=== PATIENT | female | born 2000 | race Caucasian/White ===

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

== ENCOUNTER 2025-01-24 10:54 | Emergency (ER) | payer SELFPAY ==
--- OUTSIDE RECORDS SUMMARY | 2025-01-24 11:13 | XMS REPORT | Continuity of Care Document ---
Author Name Unknown Address [address] [facility] [address] [place] [address] [facility] [place] Address [address] [facility] [address] [place] [address] Care Team Providers Care Senior Lead Java Developer Name Role Phone Pcp MD, No Primary Care Physician Unavailab chung Seals MD, Lashonda Attending Clinician + [phone] Pgy2-B Attending Clinician Unavailable Yoselyn Keating MD Attending Clinician [phone] Tika Preston Attending Clinician [phone] Pgy2 Attending Clinician Unavailable COLE DAVIS Attending Clinician Unavailable Pgy1 Attending Clinician Unavailable Bernarda Costa Attending Clinician [phone] EUGENE LOGAN Attending Clinician Unavail able MONA MATIAS Attending Clinician Unavailable Akintonny MARTINEZ, Eugene Soliz Attending Clinician + NIRMALA REAGAN Attending Clinician Unavailable NIRMALA REAGAN Attending Clinician Unavailable ERINN REID Attending Clinician Unavaila Erinn Foster CNM Attending Clinician [phone] Mona Blandon Attending Clinician +[phone] Asia Hale RN Attending Clinician Unavaila ALEX Sage Attending Clinician Unavailable CASSIE RAMOS Attending Clinician UnavailRACHEL Gutierrez Attending Clinician Unavailable Rachel Herbert MD Attending Clinician +[phone] NED LEWIS Attending Clinician UnavailAZALIA Gamble Attending Clinician Unavailable AZALIA SUAREZ Attending Clinician Unavailable 2, [facility] Attending Clinician Unavailable NAOMIE COOLEY Attending Clinician Unavailable NAOMIE COOLEY Attending Clinician Unavailable TAHIR PAYNE Attending Clinician Unavailable NYLA CHARLES Attending Clinician Unav ailMARICARMEN Rodrigez Attending Clinician Unavailable MARICARMEN SWEET Attending Clinician Unavailable Doctor Unassigned, [place] Attending Clinician U navailRAYNE Cedillo Attending Clinician Unavailable Wong Murry Attending Clinician Unavailable Ned Lewis MD Attending Clinician [phone] Beto FOREST ECOLOGIST- Alessio BRISCOE Attending Clinician ALESSIO MOSCOSO Attending Clinician Unavailable ELOY HOUSE Attending Clinician Unavaila ELOY Varela Attending Clinician Unavaila ble [facility] Attending Clinician Alayna vailable Akinsipe [facility], Eugene Soliz Attending Clinician + Greg Rodriguez CRNA Attending Clinician [phone] Caden Claudio MD Attending Clinician [phone] ANSELMO ESTES Attending Clinician Unavailable Franklyn CASTLE, Anselmo Alvarado Attending Clinician [phone] Ultrasound, Ang-m Attending Clinician Unavailivon Tong MD, Jim Franco Attending Clinician + JIM TONG Attending Clinician Unav ailable 1, [facility] Attending Clinician Unavailab PRESLEY Foy Attending Clinician Unavailab CARMEN Morales Attending Clinician UnavailCarmen Weldon Attending Clinician + [phone] Willian CONDON Attending Clinician Unavailable Willian Puga Attending Clinician [phone] Balaji Webb MD Attending Clinician + [phone] Pob, [facility] Main Attending Clinician Unavailkina Mon MD, Maynor Arellano Attending Clinician [phone] Beto Garcia Attending Clinician [phone] Paul Hassan Attending Clinician [phone] Annika Rachel MD Attending Clinician [phone] Emmie Tovar MD, Ivory Attending Clinician + Chandler DO, Will Attending Clinician +[phone] CHANDLER, WILL Attending Clinician Unavailable Emmanuel Mon DO Attending Clinician [phone] Faculty, Narendra Sevilla Attending Clinician Unava ilable Visit, [place] Nurse Attending Clinician Unava ilable Michael FOREST ECOLOGISTPresley Attending Clinician + [phone] [facility], Fp Nrpt Pills Class Attendi ng Clinician Unavailable Rocco [facility], Eva Farnsworth Attending Clinician + LUCINA REINOSO Attending Clinician Alayna vailable ANSELMO ESTES Admitting Clinician Unavailable MAYNOR MON Admitting Clinician Unavailable ANNIKA RACHEL Admitting Clinician Unavailable RACHEL HERBERT Admitting Clinician Unavailable CONNOR YIP Admitting Clinician UnavailMARICARMEN Benavides Admitting Clinician Unavailable Physician, No Primary or Family Admitting Clinic robbin Unavailable NIRMALA REAGAN Admitting Clinician Unavailable Nirmala Reagan MD Admitting Clinician Anselmo Estes MD Admitting Clinician [phone] Willian CONDON Admitting Clinician Unavailable Maynor Mon MD Admitting Clinician Annika Rachel MD Admitting Clinician Payers Payer Name Policy Type Policy Number Effective Date Expirati on Date Source [place] [employer] [id number] 2022 00:00:00 [place] [id number] 2020 00:00:00 MEDICAID COMM HEALTH CHOICE [id number] 2001 00:00:00 [place] [id number] 2001 00:00:00 MEDICAID PENDING PENDING 2020 00:00:00 FAMILY PLANNING MAX 101-150% [id number] 2019 00:00:00 Problems Condition Name Condition Details Condition Category Status Onset Date Resolution Date Last Treatment Date Treating Clinician Comments Source BREAST PAIN/DIZZI NESS BREAST PAIN/DIZZI NESS Active 05/19/2023 [facility] Active 2022-06 00:00: 00 2023-05-19 12:13:00 Josephine Headley ACUTE MASTITIS OF RIGHT BREAST, DM2, ACU ACUTE MASTITIS OF RIGHT BREAST, DM2, ACU Active 05/19/2023 [facility] Active 2022-06 00:00: 00 2023-05-23 15:18:00 Josephine Headley POST OP PAIN POST OP PAIN Active 03/24/2023 [facility] Active 2022-06 0 00:00: 00 2023-03-24 08:20:00 Josephine Headley 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 Repeat 1 year [facility] Diabetes mellitus (disorder) Diabetes mellitus (disorder) Active Problem 05/25/2023 [facility] Problem Active 2023-05-25 01:45:09 Josephine farnsworth [place] MASTITIS WITHOUT ABSCESS MASTITIS WITHOUT ABSCESS Active [facility] Diagnosis Active 2023-05-23 15:18:00 Josephine farnsworth Kayode TYPE 2 DIABETES MELLITUS WITHOUT COMPLIC TYPE 2 DIABETES MELLITUS WITHOUT COMPLIC Active [facility] Diagnosis Active 2023-05-23 15:18:00 Jonathanalize daja Kayode SEPSIS, UNSPECIFIE D ORGANISM SEPSIS, UNSPECIFIE D ORGANISM Active [facility] Diagnosis Active 2023-05-23 15:18:00 Jonathanalize Coughlinann Symptomati c cholelithi asis Symptomati c cholelithi asis Disease Resolve d 9-11 00:00: 00 2024-11-19 00:00:00 2024-11-19 16:05:07 [facility] Nexplanon in place Nexplanon in place Disease Resolve d 8-07 00:00: 00 2024-04-18 00:00:00 2024-04-18 13:03:26 Overview: Formattin g of this note might be different from the original. Inserted [facility] Obesity (BMI 30-39.9) Obesity (BMI 30-39.9) Disease Resolve d 6-30 00:00: 00 2024-04-18 00:00:00 2024-04-18 13:03:30 [facility] Anemia, Anemia, Disease Resolve d 2022-0 2-02 00:00: 00 2022-07-22 00:00:00 2022-07-22 15:40:07 [facility] Encounter for elective induction of labor Encounter for elective induction of labor Disease Resolve d 2021-1 2-22 00:00: 00 2022-07-22 00:00:00 2022-07-22 14:08:16 [facility] History of gonorrhea History of gonorrhea Disease Resolve d 2020-0 5-05 00:00: 00 2022-07-22 00:00:00 2022-07-22 14:08:20 [facility] Family history of autism in sibling Family history of autism in sibling Disease Resolve d 2020-0 3-10 00:00: 00 2022-07-22 00:00:00 2022-07-22 14:08:18 Overview: Formattin g of this note might be different from the original. Reports brother [facility] History of chlamydia infection History of chlamydia infection Disease Resolve d 2019-06 2-18 00:00: 00 2022-07-22 00:00:00 2022-07-22 14:08:20 [facility] Liveborn infant, of cornejo , born in hospital by vaginal delivery Liveborn , of cornejo , born in hospital by vaginal delivery Disease Resolve d 2021-1 2-23 00:00: 00 2022-06-30 00:00:00 2022-06-30 11:31:55 [facility] 39 weeks gestation of 39 weeks gestation of Disease Resolve d 2021-1 2-22 00:00: 00 2022-06-30 00:00:00 2022-06-30 11:31:55 [facility] Supervisio n of high risk in second trimester Supervisio n of high risk in second trimester Disease Resolve d 2021-0 6-28 00:00: 00 2022-06-30 00:00:00 2022-06-30 11:31:55 [facility] Obesity affecting in third trimester Obesity affecting in third trimester Disease Resolve d 2022-0 6-28 00:00: 00 2022-06-30 00:00:00 2022-06-30 11:31:55 [facility] Lab test positive for detection of COVID-19 virus Lab test positive for detection of COVID-19 virus Disease Resolve d 2020-06 0-25 00:00: 00 2021-05-26 00:00:00 2021-05-26 12:52:16 [facility] Normal labor and delivery Normal labor and delivery Disease Resolve d 2020-06 0-24 00:00: 00 2021-05-26 00:00:00 2021-05-26 13:31:44 [facility] 38 weeks gestation of 38 weeks gestation of Disease Resolve d 5-05 00:00: 00 2021-05-26 00:00:00 2021-05-26 12:52:16 [facility] Vaginal bleeding during Vaginal bleeding during Disease Resolve d 03-19 00:00: 00 2021-04-13 00:00:00 2021-04-13 01:56:21 [facility] Morbid obesity with body mass index of 40.0-49.9 Morbid obesity with body mass index of 40.0-49.9 Disease Resolve d 2018-06 007 00:00: 00 2021-04-13 00:00:00 2021-04-13 02:28:24 [facility] Elevated blood pressure reading without diagnosis of hypertensi on Elevated blood pressure reading without diagnosis of hypertensi on Disease Resolve d 2019-06 2-17 00:00: 00 2020-12-17 00:00:00 2020-12-17 14:44:13 [facility] Gonorrhea Gonorrhea Disease Resolve d 2019-06 2-18 00:00: 00 2020-10-22 00:00:00 2020-10-22 18:17:38 [facility] Irregular menstrual cycle Irregular menstrual cycle Disease Resolve d 8-18 00:00: 00 2020-08-27 00:00:00 2020-08-27 15:15:37 [facility] Encounter for contracept lissette management , unspecifie d type Encounter for contracept lissette management , unspecifie d type Disease Resolve d 9-04 00:00: 00 2020-08-27 00:00:00 2020-08-27 15:15:54 [facility] Nexplanon removal Nexplanon removal Disease Resolve d 9-04 00:00: 00 2019-03-26 00:00:00 2019-03-26 17:07:23 [facility] History of Past Illness Condition Name Condition Details Condition Category Status Onset Date Resolution Date Last Treatment Date Treating Clinician Comments Source Cholelithi asis without obstructio n (disorder) Cholelithi asis without obstructio n (disorder) 02/13/2023 Diagnosis 02/15/2023 [facility] Diagnosis 02-13 01:30: 00 2023-02-15 03:51:04 2023-02-15 03:51:04 Josephine Headley Nausea and vomiting (disorder) Nausea and vomiting (disorder) 02/13/2023 Diagnosis 02/15/2023 [facility] Diagnosis 2022-02-13 01:30: 00 2023-02-15 03:51:04 2023-02-15 03:51:04 Josephine Headley Allergies, Adverse Reactions, Alerts Allergy Name Allergy Type Status Severity Reaction(s) Onset Date Inactive Date Treating Clinician Comments Source No Known Allergie s DA Active U 8 00:00: 00 [facility] IODINE DRUG INGREDI Active Anaphylaxis 08-18 00:00: 00 [facility] Iodine Propensi ty to adverse reaction s Active Swelling 08-18 00:00: 00 [facility] Grass Pollen-J une Grass Standard Propensi ty to adverse reaction s Active Hives 12-27 00:00: 00 [facility] GRASS POLLEN-J UNE GRASS STANDARD Allergy Active Hives 12-27 00:00: 00 [facility] GRASS POLLEN-J UNE GRASS STANDARD Drug Class Active Hives 12-27 00:00: 00 [facility] Social History Social Habit Start Date Stop Date Quantity Comments Source History of tobacco use Passive smoker [facility] History of Occupation [facility] History SDOH Alcohol Binge [facility] History SDOH Alcohol Std Drinks [facility] Alcoholic beverage intake 2024-11-27 00:00:00 2024-11-27 00:00:00 Current drinker of alcohol (finding) [facility] History of Social function 2024-11-19 00:00:00 2024-11-19 00:00:00 [facility] Alcohol Comment 2023-08-09 00:00:00 2023-08-09 00:00:00 ocassional [facility] Exposure to SARS-CoV-2 (event) 2022-07-12 00:00:00 2022-07-22 14:22:00 Not sure [facility] Tobacco use and exposure 2022-06-10 00:00:00 2022-06-10 00:00:00 Smokeless tobacco non-user [facility] History SDOH Alcohol Frequency 2020-10-17 00:00:00 2020-10-17 00:00:00 1 [facility] Alcohol intake 2020-10-16 00:00:00 2020-10-16 00:00:00 Lifetime non-drinker (finding) [facility] Sex Assigned At 2000 00:00:00 2000 00:00:00 [facility] Smoking Status Start Date Stop Date Source Never smoked tobacco [facility] Medications Ordered Medication Name Filled Medication Name Start Date Stop Date Current Medication? Ordering Clinician Indication Dosage Frequency Signature (SIG) Comments Components Source laurent mayorgaestrad ioL-iron (,) 1.5 mg-30 mcg (21)/75 mg (7) tablet 01-17 00:00: 00 Yes [id number] 1{tbl} Take 1 tablet by mouth in the morning. [facility] medroxyPROG ESTERone 10 mg tablet 6- 00:00: 00 Yes [id number] 10mg Take 1 tablet by mouth in the morning. [facility] medroxyPROG ESTERone 5 mg tablet 6-10 00:00: 00 11-28 00:00 :00 No [id number] 5mg Take 1 tablet by mouth in the morning. [facility] ondansetron 4 mg disintegrat ing tablet 6 00:00: 00 Yes [id number] 4mg Take 1 tablet by mouth every 8 hours as needed for Nausea and Vomiting (N/V). [facility] dicyclomine 20 mg tablet 11-23 00:00: 00 Yes [id number] 20mg Take 1 tablet by mouth 4 times daily as needed for Abdominal pain. [facility] medroxyPROG ESTERone (PROVERA) 10 mg tablet 2-27 00:00: 00 08-27 04:59 :00 No [id number] 10mg Take 1 tablet by mouth in the morning for 10 days. [facility] medroxyPROG ESTERone (DEPO-PROVE RA) syringe 150 mg 07 14:15: 00 11-19 20:58 :07 No [id number] 150mg 150 mg, Intramuscu lar, [id number], 5 doses, First dose on Tue01/25/24 at 0915, Last dose on Tue12/26/24 at 0915, Routine [facility] ibuprofen 600 mg tablet 3-06 00:00: 00 04-18 00:00 :00 No [id number] 600mg Take 1 tablet by mouth every 6 (six) hours as needed for Pain (scale 1-3). [facility] gabapentin 300 mg capsule 3-06 00:00: 00 04-18 00:00 :00 No [id number] 300mg Take 1 capsule by mouth in the morning and 1 capsule at noon and 1 capsule in the evening. [facility] ibuprofen 600 mg tablet 2-20 11:12: 08 08-09 00:00 :00 No 600mg Take 1 tablet by mouth in the morning and 1 tablet in the evening. Take with meals. [facility] Tylenol with Codeine #3 oral tablet 2022-06 21:00: 00 No 1 tab, PO, Q6H, PRN Pain Score 7-10, X 3 day, # 12 tab, 0 Refill(s), Pharmacy: [id number], 165.1, cm, 05/19/23 16:33:00 PIPING SUPERVISOR, Height, 86.364, kg, 05/19/23 16:33:00 PIPING SUPERVISOR, Weight Josephine Headley ibuprofen 800 mg oral tablet 2022-06 20:56: 00 Yes 100.4 F, 0 Refill(s) Josephine Headley Multivitami ns with Folic Acid 0.8 mg oral tablet 2022-06 20:56: 00 Yes 0.8 mg = 1 tab, PO, Daily, 0 Refill(s) Josephine Headley cholecalcif yolis 2022-06 20:56: 00 Yes 5,000 IntlUnit = 1 cap, PO, Daily, 0 Refill(s) Josephine Headley Keflex 500 mg oral capsule 2022-06 20:55: 00 Yes 1,000 mg = 2 cap, PO, TID, X 10 day, # 60 cap, 0 Refill(s), Pharmacy: [id number], 165.1, cm, 05/19/23 16:33:00 PIPING SUPERVISOR, Height, 86.364, kg, 05/19/23 16:33:00 PIPING SUPERVISOR, Weight Josephine Headley fluconazole 200 mg oral tablet 2022-06 20:55: 00 Yes 200 mg = 1 tab, PO, Daily, X 7 day, # 7 tab, 0 Refill(s), Pharmacy: [id number], 165.1, cm, 05/19/23 16:33:00 PIPING SUPERVISOR, Height, 86.364, kg, 05/19/23 16:33:00 PIPING SUPERVISOR, Weight Josephine Headley fluconazole 2022-06 18:00: 00 No Notes: (Same as: Diflucan) Hazardous Drug Group 3:Reproduc tive risk Hazardous Drug -- Refer to safe handling procedure PPE Matrix Josephine Headley cholecalcif yolis 2022-06 16:57: 00 No Notes: (Same as: Vitamin D3) Josephine Headley Multivitami ns with Folic Acid 0.8 mg oral tablet 2022-06 16:57: 00 No 1 tab, Route: PO, Drug Form: TAB, Dosing Weight 86.364, kg, Daily, NOW, Start date: 05/21/23 10:57:00 PIPING SUPERVISOR, Duration: 30 day, Stop date: 06/20/23 9:00:00 PIPING SUPERVISOR, 0 Josephine Headley Ancef + Sodium Chloride 0.9% IV 100 mL 2022-06 23:38: 00 No Notes: (Same As: Ancef, Kefzol) MEDICATION WASTE Product Size: 2000 mg Product Wasted: ___ mg Josephine Headley ibuprofen 2022-06 18:31: 00 No 100.4 F, Start date: 05/20/23 12:31:00 PIPING SUPERVISOR, Duration: 30 day, Stop date: 06/19/23 12:30:00 PIPING SUPERVISOR, 0 Jonathanalize farnsworth Kayode potassium chloride 2022-06 17:07: 00 No /= 14 [place], may dissolve each 20 mEq tablet in 4 oz of water. Allow about 2 minutes for the tablets to disintegra te. Stir before giving to prepare slurry and administer . Please exclude patient's with feeding tube less than 14 [place] (Dobhoff, J-tube, etc) and pediatric and patients. Josephine Headley potassium phosphate-s odium phosphate 250 mg-280 mg-160 mg oral powder for reconstitut ion 2022-06 17:07: 00 No Notes: (Same as: Phos-NaK) Each 1.5 gm pkt has 250mg phosphorou s. Mix w/2.5oz water and stir. Memoria l Kayode potassium phosphate + Sodium Chloride 0.9% IV 250 mL 2022-06 17:07: 00 No Notes: (Same as: K Phosphate. ) Do not infuse phosphorou s concurrent ly in the same line as TPN or IVF that contains calcium. For double lumen central lines, phosphorou s may be infused in a separate lumen from TPN. 1 mMol phoshate has 1.47 mEq potassium Infuse over 4 hours Memalize farnsworth Kayode sodium phosphate + Dextrose 5% in Water IV 250 mL 2022-06 17:07: 00 No Notes: Infuse over 4 hour. Do not infuse phosphorou s concurrent ly in the same line as TPN or IVF that contains calcium. For double lumen central lines, phosphorou s may be infused in a separate lumen from TPN. Josephine Headley magnesium oxide 2022-06 17:07: 00 No Notes: (Same as: Mag-Ox 400) Magnesium oxide 200vn=137t g elemental magnesium Dose=____m g magnesium oxide (___mg elemental magnesium) Josephine Headley calcium gluconate + Sodium Chloride 0.9% IV 100 mL 2022-06 17:07: 00 No Notes: WASTE: F/P - Sink; E - Municipal Trash Bin Josephine Headley vancomycin + Sodium Chloride 0.9% IV 250 mL 2022-06 06:10: 00 No 2001 mg: infuse over 2.5 hours For adult patients only: Round to nearest 250 mg per Medical Staff approval MEDICATION WASTE Product Size: 1000 mg Product Wasted: ___ mg Josephine Headley magnesium sulfate 2 gm in Water 50 ml 2022-06 03:30: 00 No Notes: WASTE: F/P - Sink; E - Municipal Trash Bin Josephine Headley enoxaparin 2022-06 01:32: 00 No Notes: (Same as: Lovenox) Josephine Headley Rocephin + Sodium Chloride 0.9% IV 100 mL 2022-06 23:00: 00 No Notes: (Same As: Rocephin). Use with 100 mL NS and infuse over 30 min MEDICATION WASTE Product Size: 1000 mg Product Wasted: ___ mg Josephine Headley D10W (bolus) IV 2022-06 22:40: 00 No 250 mL, 999 ml/hr, Route: IV, Drug Form: INJ, Dosing Weight 86.364, kg, PRN, PRN Blood Glucose Results, Start date: 05/19/23 16:40:00 PIPING SUPERVISOR, Duration: 30 day, Stop date: 06/18/23 16:39:00 PIPING SUPERVISOR, Infuse over: 0.3 hr, 0 Josephine Headley potassium chloride 20 mEq oral tablet, extended release (KCL) 2022-06 22:36: 00 No /= 14 [place], may dissolve each 20 mEq tablet in 4 oz of water. Allow about 2 minutes for the tablets to disintegra te. Stir before giving to prepare slurry and administer . Please exclude patient's with feeding tube less than 14 [place] (Dobhoff, J-tube, etc) and pediatric and patients. Josephine Headley insulin lispro 2022-06 22:35: 00 No Notes: (Same as: Humalog) Roll in palms of hands gently; Do not shake vigorously . WASTE: F/P - Black; E - Municipal Trash Bin Stable for 28 days at room temperatur e. Expires in days from ____Date Josephine Headley Hamilton 5/325 oral tablet 2022-06 22:35: 00 No Notes: (Same as: Hamilton 325/5) Do not exceed 4gm/day of acetaminop hen. Josephine Headley Vancomycin Pharmacy Dosing Consult 2022-06 22:34: 33 No Notes: Vancomycin Pharmacy Dosing Protocol PHARMAC Y USE ONLY Note: This is not a medication order. This is a consultati on order. Josephine Headley Dextrose 50% Syringe (D50W) 2022-06 22:32: 00 No 25 mL, Route: IVP, Dosing Weight 86.364, kg, PRN, PRN Blood Glucose Results, Start date: 05/19/23 16:32:00 PIPING SUPERVISOR, Duration: 30 day, Stop date: 06/18/23 16:31:00 PIPING SUPERVISOR Josephine Headley glucagon 2022-06 22:32: 00 No 1 mg, Route: IM, Drug form: PDR/INJ, PRN, Dosing Weight 86.364, kg, PRN Blood Glucose Results, Start date: 05/19/23 16:32:00 PIPING SUPERVISOR, Duration: 30 day, Stop date: 06/18/23 16:31:00 PIPING SUPERVISOR, 0 Josephine Headley ondansetron 2022-06 22:32: 00 No Notes: (Same as: Zofran) MEDICATION WASTE Product Size: 4 mg Product Wasted: ___ mg Josephine Headley acetaminoph en 2022-06 22:32: 00 No Notes: Do not exceed 4 gm/day. (Same as: Tylenol) Josephine Headley midodrine 2022-06 18:20: 00 No Notes: (Same as:Proamat ine) Josephine Headley Sodium Chloride 0.9% (Bolus) IV 2022-06 17:49: 00 No 1,000 mL, Infuse Over: 1 hr, Route: IV, ONCE, Priority: STAT, Dosing Weight 86.364 kg, Start date: 05/19/23 11:49:00 PIPING SUPERVISOR, Stop date: 05/19/23 11:49:00 PIPING SUPERVISOR Josephine Headley vancomycin 2022-06 17:48: 00 No 1,000 mg, Route: IVPB, Drug form: INJ, ONCE, Dosing Weight 86.364, kg, Priority: STAT, Start date: 05/19/23 11:48:00 PIPING SUPERVISOR, Stop date: 05/19/23 11:48:00 PIPING SUPERVISOR, ABX Indication : ED - Suspected Sepsis Josephine Headley cefepime 2022-06 17:48: 00 No 1 gm, Route: IVPB, ONCE, Dosing Weight 86.364, kg, Priority: STAT, Start date: 05/19/23 11:48:00 PIPING SUPERVISOR, Stop date: 05/19/23 11:48:00 PIPING SUPERVISOR, ABX Indication : ED - Suspected Sepsis Josephine Headley Sodium Chloride 0.9% (Bolus) IV 2022-06 17:32: 00 No 2,590.92 mL, 2,000 ml/hr, Route: IV, ONCE, Priority: STAT, Dosing Weight 86.364 kg, Start date: 05/19/23 11:32:00 PIPING SUPERVISOR, Stop date: 05/19/23 11:32:00 PIPING SUPERVISOR, Sepsis dose. Josephine Headley ibuprofen 600 mg tablet 2022-06 0-12 08:08: 01 Yes 600mg Take 1 tablet by mouth in the morning and 1 tablet in the evening. Take with meals. [facility] Motrin 800 mg oral tablet 2022-06 0-05 13:52: 00 Yes 800 mg = 1 tab, PO, Q8H, PRN Pain, Take with food, X 10 day, # 30 tab, 0 Refill(s) Josephine Headley FENTanyl PF (SUBLIMAZE (PF)) injection 25 mcg 03-18 17:06: 54 Yes 25ug 25 mcg, Slow IV Push, Q5MIN PRN, 4 doses, Starting on Tue03/18/23 at 1206, Until Discontinu ed, Routine, Pain (scale 4-6), PACU [facility] HYDROmorphO ne (DILAUDID) injection 0.2 mg 03-18 17:06: 54 Yes .2mg 0.2 mg, Slow IV Push, Q5MIN PRN, 10 doses, Starting on Tue03/18/23 at 1206, Until Discontinu ed, Routine, Pain (scale 7-10), PACU
Us e approved by (Faculty): PACU USE -ANESTHESI A SERVICE-HY DROMORPHON E INJECTIONS [facility] ondansetron (ZOFRAN (PF)) injection 4 mg 03-18 17:06: 54 Yes 4mg 4 mg, Slow IV Push, PRN, 1 dose, Starting on Tue03/18/23 at 1206, Until Discontinu ed, Routine, Nausea and Vomiting (N/V), PACU [facility] sodium chloride 0.9 % irrigation solution 03-18 14:59: 00 03-18 16:34 :52 No PRN, Starting on Tue03/18/23 at 0959, Until Tue03/18/23 at 1134, Intra-op [facility] bupivacaine (preserv free) (SENSORCAIN E MPF) 0.25 % (2.5 mg/mL) injection 03-18 14:59: 00 03-18 16:34 :52 No PRN, Starting on Tue03/18/23 at 0959, Until Tue03/18/23 at 1134, Routine, Intra-op [facility] lactated ringers IV infusion 1,000 mL 03-18 13:30: 00 03-18 13:33 :00 No 1000mL at 42 mL/hr, 1,000 mL, IV Infusion, ONCE, 1 dose, On Tue03/18/23 at 0830, Routine, DSU Pre-op [facility] ibuprofen 600 mg tablet 03-18 13:17: 22 Yes 600mg Take 1 tablet by mouth in the morning and 1 tablet in the evening. Take with meals. [facility] acetaminoph en 650 mg CR tablet 03-18 00:00: 00 08-09 00:00 :00 No [id number] 650mg Take 1 tablet by mouth every 8 (eight) hours as needed for Pain. [facility] traMADoL 50 mg tablet 03-18 00:00: 00 03-24 04:59 :00 No [id number] 50mg Take 1 tablet by mouth every 6 (six) hours as needed for Pain (scale 7-10) for up to 5 days. Indication s: acute pain [facility] ibuprofen 600 mg tablet 02-28 15:21: 56 Yes 600mg Take 1 tablet by mouth in the morning and 1 tablet in the evening. Take with meals. [facility] blood sugar diagnostic (ACCU-CHEK GUIDE TEST STRIPS) strip 02-18 00:00: 00 08-09 00:00 :00 No [id number] Use as directed [facility] blood-gluco se meter (ACCU-CHEK GUIDE GLUCOSE METER [facility]) 02-16 12:35: 01 02-16 00:00 :00 No 1{devic e} Take 1 Device in the morning. Test blood sugars once a day [facility] ACC[facility] 02-16 12:34: 55 02-16 00:00 :00 No 1{swati t} Take 1 Lancet in the morning. Test blood sugars once a day [facility] blood sugar diagnostic (ACCU-CHEK GUIDE TEST STRIPS [facility]) 02-16 12:34: 49 02-16 00:00 :00 No 1{strip } Take 1 Strip in the morning. Check blood sugars once a day [facility] blood sugar diagnostic (ACCU-CHEK GUIDE TEST STRIPS) strip 02-16 00:00: 00 Yes [id number] Use as directed [facility] Lancets (ACCU-CHEK SOFTCLIX LANCETS) Misc 02-16 00:00: 00 08-09 00:00 :00 No [id number] Use as directed [facility] Blood-Gluco se Meter (ACCU-CHEK GUIDE GLUCOSE METER) Misc 02-16 00:00: 00 08-09 00:00 :00 No [id number] Use as directed to check glucose levels [facility] blood sugar diagnostic (ACCU-CHEK GUIDE TEST STRIPS MIS) 02-15 14:24: 52 Yes 1{strip } Take 1 Strip in the morning. Check blood sugars once a day [facility] Bentyl 20 mg oral tablet 02-13 01:31: 00 Yes 20 mg = 1 tab, PO, QID-Before Meals, # 28 tab, 0 Refill(s) [facility] Zofran 4 mg oral tablet 02-13 01:31: 00 Yes 4 mg = 1 tab, PO, Q6H, PRN Nausea/Vom iting, X 8 day, # 30 tab, 0 Refill(s) [facility] ondansetron 4 mg tablet 02-13 00:00: 00 03-18 00:00 :00 No TAKE 1 TABLET BY MOUTH EVERY 6 HOURS NEEDED FOR NAUSEA AND VOMITING [facility] dicyclomine 20 mg tablet 02-13 00:00: 00 03-18 00:00 :00 No TAKE 1 TABLET BY MOUTH 4 TIMES DAILY BEFORE MEAL(S) [facility] etonogestre L (NEXPLANON) implant 68 mg 2-02 21:00: 00 07-22 21:00 :00 No [id number] 68mg [facility] 25/iron fum/folic/d butler (-1 ORAL) 07-22 14:31: 54 07-22 00:00 :00 No Take by mouth. [facility] SERTraline (ZOLOFT) 50 mg tablet 07-22 00:00: 00 07-22 00:00 :00 No 50mg Take 1 tablet by mouth in the morning. [facility] 25/iron fum/folic/d butler (-1 ORAL) 11 11:34: 09 Yes Take by mouth. [facility] 25/iron fum/folic/d butler (-1 ORAL) 2021-06 16:34: 57 Yes Take by mouth. [facility] docusate 100 mg capsule 2021-06 00:00: 00 07-22 00:00 :00 No [id number] 102 200mg Take 2 capsules by mouth once daily as needed for Constipati on. [facility] ferrous sulfate 325 mg (65 mg iron) tablet 2021-06 00:00: 00 07-22 00:00 :00 No [id number] 102 325mg Take 1 tablet by mouth in the morning and 1 tablet in the evening. [facility] HYDROcodone -acetaminop hen (NORCO 5) 5-325 mg tablet 1 tablet 2021-06 20:46: 12 Yes 1{tbl} 1 tablet, Oral, Q6HPRN, Starting on Tue06/10/22 at 1446, Until Discontinu ed, Routine, Pain (scale 7-10) [facility] ibuprofen (IBU) tablet 600 mg 2021-06 20:46: 12 Yes 600mg 600 mg, Oral, Q6HPRN, Starting on Tue06/10/22 at 1446, Until Discontinu ed, Routine, Pain (scale 4-6) [facility] acetaminoph en (TYLENOL) tablet 650 mg 2021-06 20:46: 12 Yes 650mg 650 mg, Oral, Q6HPRN, Starting on Tue06/10/22 at 1446, Until Discontinu ed, Routine, Pain (scale 1-3) [facility] diphenhydrA MINE (BENADRYL) tablet 25 mg 2021-06 20:46: 12 Yes 25mg 25 mg, Oral, Q6HPRN, Starting on Tue06/10/22 at 1446, Until Discontinu ed, Routine, Sleep, Itching [facility] ondansetron (ZOFRAN (PF)) injection 4 mg 2021-06 20:46: 12 Yes 4mg 4 mg, Slow IV Push, Q8HPRN, Starting on Tue06/10/22 at 1446, Until Discontinu ed, Routine, Nausea and Vomiting (N/V) [facility] simethicone (GAS RELIEF (SIMETHICON E)) chewable tablet 160 mg 2021-06 20:46: 12 Yes 160mg 160 mg, Oral, PC+HSPRN, Starting on Tue06/10/22 at 1446, Until Discontinu ed, Routine, Gas [facility] docusate (COLACE) capsule 200 mg 2021-06 20:46: 12 Yes 200mg 200 mg, Oral, QDAILYPRN, Starting on Tue06/10/22 at 1446, Until Discontinu ed, Routine, Constipati on [facility] magnesium hydroxide (MILK OF MAGNESIA) 400 mg/5 mL suspension 30 mL 2021-06 20:46: 12 Yes 30mL 30 mL, Oral, QDAILYPRN, Starting on Tue06/10/22 at 1446, Until Discontinu ed, Routine, Constipati on [facility] benzocaine- menthol (DERMOPLAST ) 20-0.5 % topical spray 2021-06 20:46: 12 Yes Topical, PRN, Starting on Tue06/10/22 at 1446, Until Discontinu ed, Routine, Perineum discomfort [facility] diphenoxyla te-atropine (LOMOTIL) 2.5-0.025 mg tablet 1 tablet 2021-06 20:30: 00 06-10 20:38 :00 No 1{tbl} 1 tablet, Oral, ONCE NOW, 1 dose, On Didi 06/10/22 at 1430, Routine [facility] carboprost (HEMABATE) injection 250 mcg 2021-06 20:30: 00 06-10 20:36 :00 No 250ug 250 mcg, Intramuscu lar, ONCE, 1 dose, On Didi 06/10/22 at 1430, Routine [facility] methylergon ovine (METHERGINE ) injection 0.2 mg 2021-06 20:30: 00 06-10 20:26 :00 No .2mg 0.2 mg, Intramuscu lar, ONCE NOW, 1 dose, On Didi 06/10/22 at 1430, Routine [facility] PIB fentaNYL-ro pivacaine 2 mcg/mL-0.1 % (PF) in NS 200 mL epidural infusion RTU 2021-06 15:47: 00 06-10 21:44 :21 No Epidural, ONCE INTRA PROCEDURE, Starting on Didi 06/10/22 at 0947, Until Didi 06/10/22 at 1544, Routine, Intra-op [facility] lidocaine-e pinephrine (XYLOCAINE W/EPINEPHRI NE) 1.5 %-1:200,000 injection 2021-06 15:46: 00 06-10 21:44 :21 No Epidural, ONCE INTRA PROCEDURE, Starting on Didi 06/10/22 at 0946, Until Didi 06/10/22 at 1544, Routine, Intra-op [facility] lidocaine 1% (XYLOCAINE) 100 mg/10 mL (1 %) injection 2021-06 15:43: 00 06-10 21:44 :21 No Infiltrati on, ONCE INTRA PROCEDURE, Starting on Didi 06/10/22 at 0943, Until Didi 06/10/22 at 1544, Routine, Intra-op [facility] oxytocin (PITOCIN) 30 units in NS 500 mL IV infusion 2021-06 09:54: 34 06-10 20:47 :13 No 2mU/min at 2-40 mL/hr, IV Infusion, TITRATE, Starting on Didi 06/10/22 at 0354, Until Didi 06/10/22 at 1447, DIONNA [facility] sodium citrate-cit jennie acid (BICITRA) 500-334 mg/5 mL solution 30 mL 2021-06 09:54: 34 06-10 15:20 :00 No 30mL 30 mL, Oral, PRE-PROCED URE ONCE, 1 dose, Starting on Didi 06/10/22 at 0354, Until Discontinu ed, Routine, Surgery/Pr ocedure [facility] lactated ringers IV infusion 500 mL 2021-06 09:54: 34 06-10 20:47 :13 No 500mL at 999 mL/hr, 500 mL, IV Infusion, PRN - SEE INSTRUCTIO NS, Starting on Didi 06/10/22 at 0354, Until Didi 06/10/22 at 1447, Routine [facility] D5W-LR IV infusion 1,000 mL 2021-06 09:54: 34 06-10 20:47 :13 No 1000mL at 1-125 mL/hr, IV Infusion, TITRATE, Starting on Didi 06/10/22 at 0354, Until Didi 06/10/22 at 1447, Routine [facility] 25/iron fum/folic/d butler (-1 ORAL) 2021-06 03:41: 57 Yes Take by mouth. [facility] 25/iron fum/folic/d butler (-1 ORAL) 2021-06 09:49: 59 Yes Take by mouth. [facility] metroNIDAZO LE (FLAGYL) tablet 500 mg 2021-06 02:00: 00 06-05 02:04 :00 No 500mg 500 mg, Oral, ONCE NOW, 1 dose, On Tue06/04/22 at 2000, Routine
Reason for Anti-Infec tive: Documented Infection< br>Documen carlo Infection Site: Pelvic
Duration of Therapy: Other (see Comments) [facility] metroNIDAZO LE (FLAGYL) 500 mg tablet 2021-06 00:00: 00 Yes [id number] 500mg Take 1 tablet by mouth every 12 (twelve) hours. [facility] 25/iron fum/folic/d butler (-1 ORAL) 2021-0616 21:58: 19 Yes Take by mouth. [facility] 25/iron fum/folic/d butler (-1 ORAL) 2021-06 00:02: 44 Yes Take by mouth. [facility] 25/iron fum/folic/d butler (-1 ORAL) 2021-06 10:13: 48 Yes Take by mouth. [facility] metroNIDAZO LE (FLAGYL) tablet 500 mg 2021-06 07:00: 00 05-08 07:19 :00 No 500mg 500 mg, Oral, ONCE, 1 dose, On 05/08/22 at 0100, Routine
Reason for Anti-Infec tive: Documented Infection< br>Documen carlo Infection Site: Other
O ther site: Vaginal
Duration of Therapy: Other (see Comments) [facility] 25/iron fum/folic/d butler (-1 ORAL) 2021-06 01:31: 58 Yes Take by mouth. [facility] metroNIDAZO LE (FLAGYL) 500 mg tablet 2021-06 00:00: 00 06-02 00:00 :00 No [id number] 500mg Take 1 tablet by mouth every 12 (twelve) hours. [facility] terbutaline (BRETHINE) injection 0.25 mg 2021-06 03:00: 00 04-30 02:17 :00 No .25mg 0.25 mg, Subcutaneo us, ONCE, 1 dose, On Didi 04/29/22 at 2100, Routine [facility] fluconazole (DIFLUCAN) tablet 200 mg 2021-06 01:41: 00 04-30 01:50 :00 No 200mg 200 mg, Oral, ONCE, 1 dose, On Didi 04/29/22 at 1945, DIONNA
Re ason for Anti-Infec tive: Documented Infection< br>Documen carlo Infection Site: Other
O ther site: vaginal
Duration of Therapy: Other (see Comments) [facility] 25/iron fum/folic/d butler (-1 ORAL) 2021-06 21:42: 36 Yes Take by mouth. [facility] 25/iron fum/folic/d butler (-1 ORAL) 02-05 18:59: 32 Yes Take by mouth. [facility] ondansetron 4 mg disintegrat ing tablet 02-05 00:00: 00 06-02 00:00 :00 No [id number] 4mg Take 1 tablet by mouth every 8 (eight) hours as needed for Nausea and Vomiting (N/V). [facility] PNV,calcium 72-iron-fol ic acid 27 mg iron- 1 mg tablet 12-15 15:35: 07 12-15 00:00 :00 No 1{tbl} Take 1 tablet by mouth. [facility] FLUoxetine 10 mg capsule 2020-06 00:00: 00 12-15 00:00 :00 No [id number] 10mg Take 1 capsule by mouth daily. [facility] docusate calcium 240 mg capsule 2020-06 00:00: 00 12-15 00:00 :00 No [id number] 240mg Take 1 capsule by mouth once daily as needed for Constipati on. [facility] ferrous sulfate 325 mg (65 mg iron) tablet 2020-06 00:00: 00 12-15 00:00 :00 No [id number] 325mg Take 1 tablet by mouth 2 (two) times daily. [facility] ibuprofen 600 mg tablet 2020-06 00:00: 00 12-15 00:00 :00 No [id number] 600mg Take 1 tablet by mouth every 6 (six) hours as needed (Pain). Take with food or milk. [facility] vitamin w/calcium-i carolyn-folate ( PLUS) 27 mg iron- 1 mg Tab 10-16 20:43: 33 Yes 1{tbl} QD Take 1 tablet by mouth daily. [facility] AZITHROmyci n (ZITHROMAX) 250 MG tablet 10-16 00:00: 00 Yes Take by mouth as directed.. [facility] Immunizations Ordered Immunization Name Filled Immunization Name Date Status Comments Source TDAP 2024-02-09 00:00:00 Completed [facility] PPD (TB) 2024-02-09 00:00:00 Completed [facility] Influenza Virus Vaccine 2024-02-09 00:00:00 Completed [facility] HPV9 2024-02-09 00:00:00 Completed [facility] Influenza Virus Vaccine Quad IM, Preserv and ABX Free 6 MO-64 YRS (FLUCELVAX) 2024-02-09 00:00:00 Completed [facility] SARS-COV-2 COVID-19 PFIZER VACCINE 2024-02-09 00:00:00 Completed [facility] HEPATITIS A 2024-02-09 00:00:00 Completed [facility] Hep B, Adol or Pedi Dosage 2024-02-09 00:00:00 Completed [facility] HIB 4 Dose Schedule 2024-02-09 00:00:00 Completed [facility] HPV 2024-02-09 00:00:00 Completed [facility] Meningococcal Polysaccharide (groups A, C, Y and W-135) conjugate vaccine (MCV4P) 2024-02-09 00:00:00 Completed [facility] Meningococcal B, OMV 2024-02-09 00:00:00 Completed [facility] MMR 2024-02-09 00:00:00 Completed [facility] Pneumococcal 7 Conjugate, PCV7 (Prevnar7) 2024-02-09 00:00:00 Completed [facility] IPV 2024-02-09 00:00:00 Completed [facility] Varicella (varivax)(chicken pox) 2024-02-09 00:00:00 Completed [facility] TDAP 2023-08-24 17:33:00 Completed [facility] PPD (TB) 2023-08-24 17:33:00 Completed [facility] Influenza Virus Vaccine 2023-08-24 17:33:00 Completed [facility] HPV9 2023-08-24 17:33:00 Completed [facility] Influenza Virus Vaccine Quad IM, Preserv and ABX Free 6 MO-64 YRS (FLUCELVAX) 2023-08-24 17:33:00 Completed [facility] SARS-COV-2 COVID-19 PFIZER VACCINE 2023-08-24 17:33:00 Completed [facility] HEPATITIS A 2023-08-24 17:33:00 Completed [facility] Hep B, Adol or Pedi Dosage 2023-08-24 17:33:00 Completed [facility] HIB 4 Dose Schedule 2023-08-24 17:33:00 Completed [facility] HPV 2023-08-24 17:33:00 Completed [facility] Meningococcal Polysaccharide (groups A, C, Y and W-135) conjugate vaccine (MCV4P) 2023-08-24 17:33:00 Completed [facility] Meningococcal B, OMV 2023-08-24 17:33:00 Completed [facility] MMR 2023-08-24 17:33:00 Completed [facility] Pneumococcal 7 Conjugate, PCV7 (Prevnar7) 2023-08-24 17:33:00 Completed [facility] IPV 2023-08-24 17:33:00 Completed [facility] Varicella (varivax)(chicken pox) 2023-08-24 17:33:00 Completed [facility] TDAP 2023-08-09 11:45:00 Completed [facility] PPD (TB) 2023-08-09 11:45:00 Completed [facility] Influenza Virus Vaccine 2023-08-09 11:45:00 Completed [facility] HPV9 2023-08-09 11:45:00 Completed [facility] Influenza Virus Vaccine Quad IM, Preserv and ABX Free 6 MO-64 YRS (FLUCELVAX) 2023-08-09 11:45:00 Completed [facility] SARS-COV-2 COVID-19 PFIZER VACCINE 2023-08-09 11:45:00 Completed [facility] HEPATITIS A 2023-08-09 11:45:00 Completed [facility] Hep B, Adol or Pedi Dosage 2023-08-09 11:45:00 Completed [facility] HIB 4 Dose Schedule 2023-08-09 11:45:00 Completed [facility] HPV 2023-08-09 11:45:00 Completed [facility] Meningococcal Polysaccharide (groups A, C, Y and W-135) conjugate vaccine (MCV4P) 2023-08-09 11:45:00 Completed [facility] Meningococcal B, OMV 2023-08-09 11:45:00 Completed [facility] MMR 2023-08-09 11:45:00 Completed [facility] Pneumococcal 7 Conjugate, PCV7 (Prevnar7) 2023-08-09 11:45:00 Completed [facility] IPV 2023-08-09 11:45:00 Completed [facility] Varicella (varivax)(chicken pox) 2023-08-09 11:45:00 Completed [facility] PPD (TB) 2023-08-09 10:30:00 Completed [facility] Influenza Virus Vaccine 2023-08-09 10:30:00 Completed [facility] Influenza Virus Vaccine Quad IM, Preserv and ABX Free 6 MO-64 YRS (FLUCELVAX) 2023-08-09 10:30:00 Completed [facility] HEPATITIS A 2023-08-09 10:30:00 Completed [facility] MMR 2023-08-09 10:30:00 Completed [facility] TDAP 2023-08-09 10:30:00 Completed [facility] HPV9 2023-08-09 10:30:00 Completed [facility] SARS-COV-2 COVID-19 PFIZER VACCINE 2023-08-09 10:30:00 Completed [facility] Hep B, Adol or Pedi Dosage 2023-08-09 10:30:00 Completed [facility] HIB 4 Dose Schedule 2023-08-09 10:30:00 Completed [facility] HPV 2023-08-09 10:30:00 Completed [facility] Meningococcal Polysaccharide (groups A, C, Y and W-135) conjugate vaccine (MCV4P) 2023-08-09 10:30:00 Completed [facility] Meningococcal B, OMV 2023-08-09 10:30:00 Completed [facility] Pneumococcal 7 Conjugate, PCV7 (Prevnar7) 2023-08-09 10:30:00 Completed [facility] IPV 2023-08-09 10:30:00 Completed [facility] Varicella (varivax)(chicken pox) 2023-08-09 10:30:00 Completed [facility] TDAP 2023-03-31 08:30:00 Completed [facility] PPD (TB) 2023-03-31 08:30:00 Completed [facility] Influenza Virus Vaccine 2023-03-31 08:30:00 Completed [facility] HPV9 2023-03-31 08:30:00 Completed [facility] Influenza Virus Vaccine Quad IM, Preserv and ABX Free 6 MO-64 YRS (FLUCELVAX) 2023-03-31 08:30:00 Completed [facility] SARS-COV-2 COVID-19 PFIZER VACCINE 2023-03-31 08:30:00 Completed [facility] HEPATITIS A 2023-03-31 08:30:00 Completed [facility] Hep B, Adol or Pedi Dosage 2023-03-31 08:30:00 Completed [facility] HIB 4 Dose Schedule 2023-03-31 08:30:00 Completed [facility] HPV 2023-03-31 08:30:00 Completed [facility] Meningococcal Polysaccharide (groups A, C, Y and W-135) conjugate vaccine (MCV4P) 2023-03-31 08:30:00 Completed [facility] Meningococcal B, OMV 2023-03-31 08:30:00 Completed [facility] MMR 2023-03-31 08:30:00 Completed [facility] Pneumococcal 7 Conjugate, PCV7 (Prevnar7) 2023-03-31 08:30:00 Completed [facility] IPV 2023-03-31 08:30:00 Completed [facility] Varicella (varivax)(chicken pox) 2023-03-31 08:30:00 Completed [facility] TDAP 2023-03-18 09:20:00 Completed [facility] PPD (TB) 2023-03-18 09:20:00 Completed [facility] Influenza Virus Vaccine 2023-03-18 09:20:00 Completed [facility] HPV9 2023-03-18 09:20:00 Completed [facility] Influenza Virus Vaccine Quad IM, Preserv and ABX Free 6 MO-64 YRS (FLUCELVAX) 2023-03-18 09:20:00 Completed [facility] SARS-COV-2 COVID-19 PFIZER VACCINE 2023-03-18 09:20:00 Completed [facility] HEPATITIS A 2023-03-18 09:20:00 Completed [facility] Hep B, Adol or Pedi Dosage 2023-03-18 09:20:00 Completed [facility] HIB 4 Dose Schedule 2023-03-18 09:20:00 Completed [facility] HPV 2023-03-18 09:20:00 Completed [facility] Meningococcal Polysaccharide (groups A, C, Y and W-135) conjugate vaccine (MCV4P) 2023-03-18 09:20:00 Completed [facility] Meningococcal B, OMV 2023-03-18 09:20:00 Completed [facility] MMR 2023-03-18 09:20:00 Completed [facility] Pneumococcal 7 Conjugate, PCV7 (Prevnar7) 2023-03-18 09:20:00 Completed [facility] IPV 2023-03-18 09:20:00 Completed [facility] Varicella (varivax)(chicken pox) 2023-03-18 09:20:00 Completed [facility] TDAP 2023-03-18 08:16:00 Completed [facility] PPD (TB) 2023-03-18 08:16:00 Completed [facility] Influenza Virus Vaccine 2023-03-18 08:16:00 Completed [facility] HPV9 2023-03-18 08:16:00 Completed [facility] Influenza Virus Vaccine Quad IM, Preserv and ABX Free 6 MO-64 YRS (FLUCELVAX) 2023-03-18 08:16:00 Completed [facility] SARS-COV-2 COVID-19 PFIZER VACCINE 2023-03-18 08:16:00 Completed [facility] HEPATITIS A 2023-03-18 08:16:00 Completed [facility] Hep B, Adol or Pedi Dosage 2023-03-18 08:16:00 Completed [facility] HIB 4 Dose Schedule 2023-03-18 08:16:00 Completed [facility] HPV 2023-03-18 08:16:00 Completed [facility] Meningococcal Polysaccharide (groups A, C, Y and W-135) conjugate vaccine (MCV4P) 2023-03-18 08:16:00 Completed [facility] Meningococcal B, OMV 2023-03-18 08:16:00 Completed [facility] MMR 2023-03-18 08:16:00 Completed [facility] Pneumococcal 7 Conjugate, PCV7 (Prevnar7) 2023-03-18 08:16:00 Completed [facility] IPV 2023-03-18 08:16:00 Completed [facility] Varicella (varivax)(chicken pox) 2023-03-18 08:16:00 Completed [facility] TDAP 2023-03-18 00:00:00 Completed [facility] PPD (TB) 2023-03-18 00:00:00 Completed [facility] Influenza Virus Vaccine 2023-03-18 00:00:00 Completed [facility] HPV9 2023-03-18 00:00:00 Completed [facility] Influenza Virus Vaccine Quad IM, Preserv and ABX Free 6 MO-64 YRS (FLUCELVAX) 2023-03-18 00:00:00 Completed [facility] [place] SARS-COV-2 [place]-19 PFIZER VACCINE 2023-03-18 00:00:00 Completed [facility] HEPATITIS A 2023-03-18 00:00:00 Completed [facility] Hep B, Adol or Pedi Dosage 2023-03-18 00:00:00 Completed [facility] HIB 4 Dose Schedule 2023-03-18 00:00:00 Completed [facility] HPV 2023-03-18 00:00:00 Completed [facility] Meningococcal Polysaccharide (groups A, C, Y and W-135) conjugate vaccine (MCV4P) 2023-03-18 00:00:00 Completed [facility] Meningococcal B, OMV 2023-03-18 00:00:00 Completed [facility] MMR 2023-03-18 00:00:00 Completed [facility] Pneumococcal 7 Conjugate, PCV7 (Prevnar7) 2023-03-18 00:00:00 Completed [facility] IPV 2023-03-18 00:00:00 Completed [facility] Varicella (varivax)(chicken pox) 2023-03-18 00:00:00 Completed [facility] TDAP 2023-03-10 00:00:00 Completed [facility] PPD (TB) 2023-03-10 00:00:00 Completed [facility] Influenza Virus Vaccine 2023-03-10 00:00:00 Completed [facility] HPV9 2023-03-10 00:00:00 Completed [facility] Influenza Virus Vaccine Quad IM, Preserv and ABX Free 6 MO-64 YRS (FLUCELVAX) 2023-03-10 00:00:00 Completed [facility] SARS-COV-2 COVID-19 PFIZER VACCINE 2023-03-10 00:00:00 Completed [facility] HEPATITIS A 2023-03-10 00:00:00 Completed [facility] Hep B, Adol or Pedi Dosage 2023-03-10 00:00:00 Completed [facility] HIB 4 Dose Schedule 2023-03-10 00:00:00 Completed [facility] HPV 2023-03-10 00:00:00 Completed [facility] Meningococcal Polysaccharide (groups A, C, Y and W-135) conjugate vaccine (MCV4P) 2023-03-10 00:00:00 Completed [facility] Meningococcal B, OMV 2023-03-10 00:00:00 Completed [facility] MMR 2023-03-10 00:00:00 Completed [facility] Pneumococcal 7 Conjugate, PCV7 (Prevnar7) 2023-03-10 00:00:00 Completed [facility] IPV 2023-03-10 00:00:00 Completed [facility] Varicella (varivax)(chicken pox) 2023-03-10 00:00:00 Completed [facility] TDAP 2022-05-16 00:00:00 Completed [facility] PPD (TB) 2022-05-16 00:00:00 Completed [facility] Influenza Virus Vaccine 2022-05-16 00:00:00 Completed [facility] HPV9 2022-05-16 00:00:00 Completed [facility] Influenza Virus Vaccine Quad IM, Preserv and ABX Free 6 MO-64 YRS (FLUCELVAX) 2022-05-16 00:00:00 Completed [facility] SARS-COV-2 COVID-19 PFIZER VACCINE 2022-05-16 00:00:00 Completed [facility] HEPATITIS A 2022-05-16 00:00:00 Completed [facility] Hep B, Adol or Pedi Dosage 2022-05-16 00:00:00 Completed [facility] HIB 4 Dose Schedule 2022-05-16 00:00:00 Completed [facility] HPV 2022-05-16 00:00:00 Completed [facility] Meningococcal Polysaccharide (groups A, C, Y and W-135) conjugate vaccine (MCV4P) 2022-05-16 00:00:00 Completed [facility] Meningococcal B, OMV 2022-05-16 00:00:00 Completed [facility] MMR 2022-05-16 00:00:00 Completed [facility] Pneumococcal 7 Conjugate, PCV7 (Prevnar7) 2022-05-16 00:00:00 Completed [facility] IPV 2022-05-16 00:00:00 Completed [facility] Varicella (varivax)(chicken pox) 2022-05-16 00:00:00 Completed [facility] TDAP 2022-03-26 00:00:00 Completed [facility] TDAP 2022-03-26 00:00:00 Completed [facility] TDAP 2022-03-26 00:00:00 Completed [facility] TDAP 2022-03-26 00:00:00 Completed [facility] TDAP 2022-03-26 00:00:00 Completed [facility] TDAP 2022-03-26 00:00:00 Completed [facility] TDAP 2022-03-26 00:00:00 Completed [facility] TDAP 2022-03-26 00:00:00 Completed [facility] TDAP 2022-03-26 00:00:00 Completed [facility] TDAP 2022-03-26 00:00:00 Completed [facility] TDAP 2022-03-26 00:00:00 Completed [facility] TDAP 2022-03-26 00:00:00 Completed [facility] TDAP 2022-03-26 00:00:00 Completed [facility] TDAP 2022-03-26 00:00:00 Completed [facility] TDAP 2022-03-26 00:00:00 Completed [facility] TDAP 2022-03-26 00:00:00 Completed [facility] TDAP 2022-03-26 00:00:00 Completed [facility] TDAP 2022-03-26 00:00:00 Completed [facility] TDAP 2022-03-26 00:00:00 Completed [facility] TDAP 2022-03-26 00:00:00 Completed [facility] TDAP 2022-03-26 00:00:00 Completed [facility] TDAP 2022-03-26 00:00:00 Completed [facility] TDAP 2022-03-26 00:00:00 Completed [facility] TDAP 2022-03-26 00:00:00 Completed [facility] TDAP 2022-03-26 00:00:00 Completed [facility] TDAP 2022-03-26 00:00:00 Completed [facility] TDAP 2022-03-26 00:00:00 Completed [facility] TDAP 2022-03-26 00:00:00 Completed [facility] TDAP 2022-03-26 00:00:00 Completed [facility] TDAP 2022-03-26 00:00:00 Completed [facility] TDAP 2021-08-05 00:00:00 Completed [facility] PPD (TB) 2021-08-05 00:00:00 Completed [facility] Influenza Virus Vaccine 2021-08-05 00:00:00 Completed [facility] HPV9 2021-08-05 00:00:00 Completed [facility] Influenza Virus Vaccine Quad IM, Preserv and ABX Free 6 MO-64 YRS (FLUCELVAX) 2021-08-05 00:00:00 Completed [facility] SARS-COV-2 COVID-19 PFIZER VACCINE 2021-08-05 00:00:00 Completed [facility] HEPATITIS A 2021-08-05 00:00:00 Completed [facility] Hep B, Adol or Pedi Dosage 2021-08-05 00:00:00 Completed [facility] HIB 4 Dose Schedule 2021-08-05 00:00:00 Completed [facility] HPV 2021-08-05 00:00:00 Completed [facility] Meningococcal Polysaccharide (groups A, C, Y and W-135) conjugate vaccine (MCV4P) 2021-08-05 00:00:00 Completed [facility] Meningococcal B, OMV 2021-08-05 00:00:00 Completed [facility] MMR 2021-08-05 00:00:00 Completed [facility] Pneumococcal 7 Conjugate, PCV7 (Prevnar7) 2021-08-05 00:00:00 Completed [facility] IPV 2021-08-05 00:00:00 Completed [facility] Varicella (varivax)(chicken pox) 2021-08-05 00:00:00 Completed [facility] HPV9 2021-05-26 00:00:00 Completed [facility] HPV9 2021-05-26 00:00:00 Completed [facility] HPV9 2021-05-26 00:00:00 Completed [facility] HPV9 2021-05-26 00:00:00 Completed [facility] HPV9 2021-05-26 00:00:00 Completed [facility] HPV9 2021-05-26 00:00:00 Completed [facility] HPV9 2021-05-26 00:00:00 Completed [facility] HPV9 2021-05-26 00:00:00 Completed [facility] HPV9 2021-05-26 00:00:00 Completed [facility] HPV9 2021-05-26 00:00:00 Completed [facility] HPV9 2021-05-26 00:00:00 Completed [facility] HPV9 2021-05-26 00:00:00 Completed [facility] HPV9 2021-05-26 00:00:00 Completed [facility] HPV9 2021-05-26 00:00:00 Completed [facility] HPV9 2021-05-26 00:00:00 Completed [facility] HPV9 2021-05-26 00:00:00 Completed [facility] HPV9 2021-05-26 00:00:00 Completed [facility] HPV9 2021-05-26 00:00:00 Completed [facility] HPV9 2021-05-26 00:00:00 Completed [facility] HPV9 2021-05-26 00:00:00 Completed [facility] HPV9 2021-05-26 00:00:00 Completed [facility] HPV9 2021-05-26 00:00:00 Completed [facility] HPV9 2021-05-26 00:00:00 Completed [facility] HPV9 2021-05-26 00:00:00 Completed [facility] HPV9 2021-05-26 00:00:00 Completed [facility] HPV9 2021-05-26 00:00:00 Completed [facility] HPV9 2021-05-26 00:00:00 Completed [facility] HPV9 2021-05-26 00:00:00 Completed [facility] HPV9 2021-05-26 00:00:00 Completed [facility] HPV9 2021-05-26 00:00:00 Completed [facility] HPV9 2021-05-26 00:00:00 Completed [facility] HPV9 2021-05-26 00:00:00 Completed [facility] HPV9 2021-05-26 00:00:00 Completed [facility] HPV9 2021-05-26 00:00:00 Completed [facility] HPV9 2021-05-26 00:00:00 Completed [facility] Influenza Virus Vaccine Quad IM, Preserv and ABX Free 6 MO-64 YRS 2021-05-05 00:00:00 Completed [facility] Influenza Virus Vaccine Quad IM, Preserv and ABX Free 6 MO-64 YRS 2021-05-05 00:00:00 Completed [facility] Influenza Virus Vaccine Quad IM, Preserv and ABX Free 6 MO-64 YRS 2021-05-05 00:00:00 Completed [facility] Influenza Virus Vaccine Quad IM, Preserv and ABX Free 6 MO-64 YRS 2021-05-05 00:00:00 Completed [facility] Influenza Virus Vaccine Quad IM, Preserv and ABX Free 6 MO-64 YRS 2021-05-05 00:00:00 Completed [facility] Influenza Virus Vaccine Quad IM, Preserv and ABX Free 6 MO-64 YRS 2021-05-05 00:00:00 Completed [facility] Influenza Virus Vaccine Quad IM, Preserv and ABX Free 6 MO-64 YRS 2021-05-05 00:00:00 Completed [facility] Influenza Virus Vaccine Quad IM, Preserv and ABX Free 6 MO-64 YRS 2021-05-05 00:00:00 Completed [facility] Influenza Virus Vaccine Quad IM, Preserv and ABX Free 6 MO-64 YRS 2021-05-05 00:00:00 Completed [facility] Influenza Virus Vaccine Quad IM, Preserv and ABX Free 6 MO-64 YRS 2021-05-05 00:00:00 Completed [facility] Influenza Virus Vaccine Quad IM, Preserv and ABX Free 6 MO-64 YRS 2021-05-05 00:00:00 Completed [facility] Influenza Virus Vaccine Quad IM, Preserv and ABX Free 6 MO-64 YRS 2021-05-05 00:00:00 Completed [facility] Influenza Virus Vaccine Quad IM, Preserv and ABX Free 6 MO-64 YRS 2021-05-05 00:00:00 Completed [facility] Influenza Virus Vaccine Quad IM, Preserv and ABX Free 6 MO-64 YRS 2021-05-05 00:00:00 Completed [facility] Influenza Virus Vaccine Quad IM, Preserv and ABX Free 6 MO-64 YRS 2021-05-05 00:00:00 Completed [facility] Influenza Virus Vaccine Quad IM, Preserv and ABX Free 6 MO-64 YRS 2021-05-05 00:00:00 Completed [facility] Influenza Virus Vaccine Quad IM, Preserv and ABX Free 6 MO-64 YRS 2021-05-05 00:00:00 Completed [facility] Influenza Virus Vaccine Quad IM, Preserv and ABX Free 6 MO-64 YRS 2021-05-05 00:00:00 Completed [facility] Influenza Virus Vaccine Quad IM, Preserv and ABX Free 6 MO-64 YRS 2021-05-05 00:00:00 Completed [facility] Influenza Virus Vaccine Quad IM, Preserv and ABX Free 6 MO-64 YRS 2021-05-05 00:00:00 Completed [facility] Influenza Virus Vaccine Quad IM, Preserv and ABX Free 6 MO-64 YRS 2021-05-05 00:00:00 Completed [facility] Influenza Virus Vaccine Quad IM, Preserv and ABX Free 6 MO-64 YRS 2021-05-05 00:00:00 Completed [facility] Influenza Virus Vaccine Quad IM, Preserv and ABX Free 6 MO-64 YRS 2021-05-05 00:00:00 Completed [facility] Influenza Virus Vaccine Quad IM, Preserv and ABX Free 6 MO-64 YRS 2021-05-05 00:00:00 Completed [facility] Influenza Virus Vaccine Quad IM, Preserv and ABX Free 6 MO-64 YRS 2021-05-05 00:00:00 Completed [facility] Influenza Virus Vaccine Quad IM, Preserv and ABX Free 6 MO-64 YRS 2021-05-05 00:00:00 Completed [facility] Influenza Virus Vaccine Quad IM, Preserv and ABX Free 6 MO-64 YRS 2021-05-05 00:00:00 Completed [facility] Influenza Virus Vaccine Quad IM, Preserv and ABX Free 6 MO-64 YRS 2021-05-05 00:00:00 Completed [facility] Influenza Virus Vaccine Quad IM, Preserv and ABX Free 6 MO-64 YRS 2021-05-05 00:00:00 Completed [facility] Influenza Virus Vaccine Quad IM, Preserv and ABX Free 6 MO-64 YRS 2021-05-05 00:00:00 Completed [facility] Influenza Virus Vaccine Quad IM, Preserv and ABX Free 6 MO-64 YRS (FLUCELVAX) 2021-05-05 00:00:00 Completed [facility] Influenza Virus Vaccine Quad IM, Preserv and ABX Free 6 MO-64 YRS (FLUCELVAX) 2021-05-05 00:00:00 Completed [facility] Influenza Virus Vaccine Quad IM, Preserv and ABX Free 6 MO-64 YRS (FLUCELVAX) 2021-05-05 00:00:00 Completed [facility] Influenza Virus Vaccine Quad IM, Preserv and ABX Free 6 MO-64 YRS (FLUCELVAX) 2021-05-05 00:00:00 Completed [facility] TDAP 2021-03-13 00:00:00 Completed [facility] PPD (TB) 2021-03-13 00:00:00 Completed [facility] Influenza Virus Vaccine 2021-03-13 00:00:00 Completed [facility] HPV9 2021-03-13 00:00:00 Completed [facility] SARS-COV-2 COVID-19 PFIZER VACCINE 2021-03-13 00:00:00 Completed [facility] HEPATITIS A 2021-03-13 00:00:00 Completed [facility] Hep B, Adol or Pedi Dosage 2021-03-13 00:00:00 Completed [facility] HIB 4 Dose Schedule 2021-03-13 00:00:00 Completed [facility] HPV 2021-03-13 00:00:00 Completed [facility] Meningococcal Polysaccharide (groups A, C, Y and W-135) conjugate vaccine (MCV4P) 2021-03-13 00:00:00 Completed [facility] Meningococcal B, OMV 2021-03-13 00:00:00 Completed [facility] MMR 2021-03-13 00:00:00 Completed [facility] Pneumococcal 7 Conjugate, PCV7 (Prevnar7) 2021-03-13 00:00:00 Completed [facility] IPV 2021-03-13 00:00:00 Completed [facility] Varicella (varivax)(chicken pox) 2021-03-13 00:00:00 Completed [facility] TDAP 2021-02-12 00:00:00 Completed [facility] PPD (TB) 2021-02-12 00:00:00 Completed [facility] Influenza Virus Vaccine 2021-02-12 00:00:00 Completed [facility] HPV9 2021-02-12 00:00:00 Completed [facility] SARS-COV-2 COVID-19 PFIZER VACCINE 2021-02-12 00:00:00 Completed [facility] HEPATITIS A 2021-02-12 00:00:00 Completed [facility] Hep B, Adol or Pedi Dosage 2021-02-12 00:00:00 Completed [facility] HIB 4 Dose Schedule 2021-02-12 00:00:00 Completed [facility] HPV 2021-02-12 00:00:00 Completed [facility] Meningococcal Polysaccharide (groups A, C, Y and W-135) conjugate vaccine (MCV4P) 2021-02-12 00:00:00 Completed [facility] Meningococcal B, OMV 2021-02-12 00:00:00 Completed [facility] MMR 2021-02-12 00:00:00 Completed [facility] Pneumococcal 7 Conjugate, PCV7 (Prevnar7) 2021-02-12 00:00:00 Completed [facility] IPV 2021-02-12 00:00:00 Completed [facility] Varicella (varivax)(chicken pox) 2021-02-12 00:00:00 Completed [facility] TDAP 2021-02-06 00:00:00 Completed [facility] TDAP 2021-02-06 00:00:00 Completed [facility] TDAP 2021-02-06 00:00:00 Completed [facility] TDAP 2021-02-06 00:00:00 Completed [facility] TDAP 2021-02-06 00:00:00 Completed [facility] TDAP 2021-02-06 00:00:00 Completed [facility] TDAP 2021-02-06 00:00:00 Completed [facility] TDAP 2021-02-06 00:00:00 Completed [facility] TDAP 2021-02-06 00:00:00 Completed [facility] TDAP 2021-02-06 00:00:00 Completed [facility] TDAP 2021-02-06 00:00:00 Completed [facility] TDAP 2021-02-06 00:00:00 Completed [facility] TDAP 2021-02-06 00:00:00 Completed [facility] TDAP 2021-02-06 00:00:00 Completed [facility] TDAP 2021-02-06 00:00:00 Completed [facility] TDAP 2021-02-06 00:00:00 Completed [facility] TDAP 2021-02-06 00:00:00 Completed [facility] TDAP 2021-02-06 00:00:00 Completed [facility] TDAP 2021-02-06 00:00:00 Completed [facility] TDAP 2021-02-06 00:00:00 Completed [facility] TDAP 2021-02-06 00:00:00 Completed [facility] TDAP 2021-02-06 00:00:00 Completed [facility] TDAP 2021-02-06 00:00:00 Completed [facility] TDAP 2021-02-06 00:00:00 Completed [facility] TDAP 2021-02-06 00:00:00 Completed [facility] TDAP 2021-02-06 00:00:00 Completed [facility] TDAP 2021-02-06 00:00:00 Completed [facility] TDAP 2021-02-06 00:00:00 Completed [facility] TDAP 2021-02-06 00:00:00 Completed [facility] TDAP 2021-02-06 00:00:00 Completed [facility] TDAP 2021-02-06 00:00:00 Completed [facility] TDAP 2021-02-06 00:00:00 Completed [facility] TDAP 2021-02-06 00:00:00 Completed [facility] TDAP 2021-02-06 00:00:00 Completed [facility] TDAP 2021-02-06 00:00:00 Completed [facility] TDAP 2020-12-29 00:00:00 Completed [facility] PPD (TB) 2020-12-29 00:00:00 Completed [facility] Influenza Virus Vaccine 2020-12-29 00:00:00 Completed [facility] HPV9 2020-12-29 00:00:00 Completed [facility] SARS-COV-2 COVID-19 PFIZER VACCINE 2020-12-29 00:00:00 Completed [facility] HEPATITIS A 2020-12-29 00:00:00 Completed [facility] Hep B, Adol or Pedi Dosage 2020-12-29 00:00:00 Completed [facility] HIB 4 Dose Schedule 2020-12-29 00:00:00 Completed [facility] HPV 2020-12-29 00:00:00 Completed [facility] Meningococcal Polysaccharide (groups A, C, Y and W-135) conjugate vaccine (MCV4P) 2020-12-29 00:00:00 Completed [facility] Meningococcal B, OMV 2020-12-29 00:00:00 Completed [facility] MMR 2020-12-29 00:00:00 Completed [facility] Pneumococcal 7 Conjugate, PCV7 (Prevnar7) 2020-12-29 00:00:00 Completed [facility] IPV 2020-12-29 00:00:00 Completed [facility] Varicella (varivax)(chicken pox) 2020-12-29 00:00:00 Completed [facility] TDAP 2020-12-27 00:00:00 Completed [facility] PPD (TB) 2020-12-27 00:00:00 Completed [facility] Influenza Virus Vaccine 2020-12-27 00:00:00 Completed [facility] HPV9 2020-12-27 00:00:00 Completed [facility] SARS-COV-2 COVID-19 PFIZER VACCINE 2020-12-27 00:00:00 Completed [facility] HEPATITIS A 2020-12-27 00:00:00 Completed [facility] Hep B, Adol or Pedi Dosage 2020-12-27 00:00:00 Completed [facility] HIB 4 Dose Schedule 2020-12-27 00:00:00 Completed [facility] HPV 2020-12-27 00:00:00 Completed [facility] Meningococcal Polysaccharide (groups A, C, Y and W-135) conjugate vaccine (MCV4P) 2020-12-27 00:00:00 Completed [facility] Meningococcal B, OMV 2020-12-27 00:00:00 Completed [facility] MMR 2020-12-27 00:00:00 Completed [facility] Pneumococcal 7 Conjugate, PCV7 (Prevnar7) 2020-12-27 00:00:00 Completed [facility] IPV 2020-12-27 00:00:00 Completed [facility] Varicella (varivax)(chicken pox) 2020-12-27 00:00:00 Completed [facility] TDAP 2020-12-27 00:00:00 Completed [facility] PPD (TB) 2020-12-27 00:00:00 Completed [facility] Influenza Virus Vaccine 2020-12-27 00:00:00 Completed [facility] HPV9 2020-12-27 00:00:00 Completed [facility] SARS-COV-2 COVID-19 PFIZER VACCINE 2020-12-27 00:00:00 Completed [facility] HEPATITIS A 2020-12-27 00:00:00 Completed [facility] Hep B, Adol or Pedi Dosage 2020-12-27 00:00:00 Completed [facility] HIB 4 Dose Schedule 2020-12-27 00:00:00 Completed [facility] HPV 2020-12-27 00:00:00 Completed [facility] Meningococcal Polysaccharide (groups A, C, Y and W-135) conjugate vaccine (MCV4P) 2020-12-27 00:00:00 Completed [facility] Meningococcal B, OMV 2020-12-27 00:00:00 Completed [facility] MMR 2020-12-27 00:00:00 Completed [facility] Pneumococcal 7 Conjugate, PCV7 (Prevnar7) 2020-12-27 00:00:00 Completed [facility] IPV 2020-12-27 00:00:00 Completed [facility] Varicella (varivax)(chicken pox) 2020-12-27 00:00:00 Completed [facility] TDAP 2020-10-09 00:00:00 Completed [facility] PPD (TB) 2020-10-09 00:00:00 Completed [facility] Influenza Virus Vaccine 2020-10-09 00:00:00 Completed [facility] HPV9 2020-10-09 00:00:00 Completed [facility] SARS-COV-2 COVID-19 PFIZER VACCINE 2020-10-09 00:00:00 Completed [facility] HEPATITIS A 2020-10-09 00:00:00 Completed [facility] Hep B, Adol or Pedi Dosage 2020-10-09 00:00:00 Completed [facility] HIB 4 Dose Schedule 2020-10-09 00:00:00 Completed [facility] HPV 2020-10-09 00:00:00 Completed [facility] Meningococcal Polysaccharide (groups A, C, Y and W-135) conjugate vaccine (MCV4P) 2020-10-09 00:00:00 Completed [facility] Meningococcal B, OMV 2020-10-09 00:00:00 Completed [facility] MMR 2020-10-09 00:00:00 Completed [facility] Pneumococcal 7 Conjugate, PCV7 (Prevnar7) 2020-10-09 00:00:00 Completed [facility] IPV 2020-10-09 00:00:00 Completed [facility] Varicella (varivax)(chicken pox) 2020-10-09 00:00:00 Completed [facility] TDAP 2020-10-01 00:00:00 Completed [facility] PPD (TB) 2020-10-01 00:00:00 Completed [facility] Influenza Virus Vaccine 2020-10-01 00:00:00 Completed [facility] HPV9 2020-10-01 00:00:00 Completed [facility] SARS-COV-2 COVID-19 PFIZER VACCINE 2020-10-01 00:00:00 Completed [facility] HEPATITIS A 2020-10-01 00:00:00 Completed [facility] Hep B, Adol or Pedi Dosage 2020-10-01 00:00:00 Completed [facility] HIB 4 Dose Schedule 2020-10-01 00:00:00 Completed [facility] HPV 2020-10-01 00:00:00 Completed [facility] Meningococcal Polysaccharide (groups A, C, Y and W-135) conjugate vaccine (MCV4P) 2020-10-01 00:00:00 Completed [facility] Meningococcal B, OMV 2020-10-01 00:00:00 Completed [facility] MMR 2020-10-01 00:00:00 Completed [facility] Pneumococcal 7 Conjugate, PCV7 (Prevnar7) 2020-10-01 00:00:00 Completed [facility] IPV 2020-10-01 00:00:00 Completed [facility] Varicella (varivax)(chicken pox) 2020-10-01 00:00:00 Completed [facility] SARS-COV-2 COVID-19 PFIZER VACCINE 2020-08-13 00:00:00 Completed [facility] SARS-COV-2 COVID-19 PFIZER VACCINE 2020-08-13 00:00:00 Completed [facility] SARS-COV-2 COVID-19 PFIZER VACCINE 2020-08-13 00:00:00 Completed [facility] SARS-COV-2 COVID-19 PFIZER VACCINE 2020-08-13 00:00:00 Completed [facility] SARS-COV-2 COVID-19 PFIZER VACCINE 2020-08-13 00:00:00 Completed [facility] SARS-COV-2 COVID-19 PFIZER VACCINE 2020-08-13 00:00:00 Completed [facility] SARS-COV-2 COVID-19 PFIZER VACCINE 2020-08-13 00:00:00 Completed [facility] HPV9 2020-08-12 00:00:00 Completed [facility] HPV9 2020-08-12 00:00:00 Completed [facility] HPV9 2020-08-12 00:00:00 Completed [facility] HPV9 2020-08-12 00:00:00 Completed [facility] HPV9 2020-08-12 00:00:00 Completed [facility] HPV9 2020-08-12 00:00:00 Completed [facility] HPV9 2020-08-12 00:00:00 Completed [facility] HPV9 2020-08-12 00:00:00 Completed [facility] HPV9 2020-08-12 00:00:00 Completed [facility] HPV9 2020-08-12 00:00:00 Completed [facility] HPV9 2020-08-12 00:00:00 Completed [facility] HPV9 2020-08-12 00:00:00 Completed [facility] HPV9 2020-08-12 00:00:00 Completed [facility] HPV9 2020-08-12 00:00:00 Completed [facility] HPV9 2020-08-12 00:00:00 Completed [facility] HPV9 2020-08-12 00:00:00 Completed [facility] HPV9 2020-08-12 00:00:00 Completed [facility] HPV9 2020-08-12 00:00:00 Completed [facility] HPV9 2020-08-12 00:00:00 Completed [facility] HPV9 2020-08-12 00:00:00 Completed [facility] HPV9 2020-08-12 00:00:00 Completed [facility] HPV9 2020-08-12 00:00:00 Completed [facility] HPV9 2020-08-12 00:00:00 Completed [facility] HPV9 2020-08-12 00:00:00 Completed [facility] HPV9 2020-08-12 00:00:00 Completed [facility] HPV9 2020-08-12 00:00:00 Completed [facility] HPV9 2020-08-12 00:00:00 Completed [facility] HPV9 2020-08-12 00:00:00 Completed [facility] HPV9 2020-08-12 00:00:00 Completed [facility] HPV9 2020-08-12 00:00:00 Completed [facility] HPV9 2020-08-12 00:00:00 Completed [facility] HPV9 2020-08-12 00:00:00 Completed [facility] HPV9 2020-08-12 00:00:00 Completed [facility] HPV9 2020-08-12 00:00:00 Completed [facility] HPV9 2020-08-12 00:00:00 Completed [facility] SARS-COV-2 COVID-19 PFIZER VACCINE 2020-07-23 00:00:00 Completed [facility] SARS-COV-2 COVID-19 PFIZER VACCINE 2020-07-23 00:00:00 Completed [facility] SARS-COV-2 COVID-19 PFIZER VACCINE 2020-07-23 00:00:00 Completed [facility] SARS-COV-2 COVID-19 PFIZER VACCINE 2020-07-23 00:00:00 Completed [facility] SARS-COV-2 COVID-19 PFIZER VACCINE 2020-07-23 00:00:00 Completed [facility] SARS-COV-2 COVID-19 PFIZER VACCINE 2020-07-23 00:00:00 Completed [facility] SARS-COV-2 COVID-19 PFIZER VACCINE 2020-07-23 00:00:00 Completed [facility] SARS-COV-2 COVID-19 PFIZER VACCINE 2020-07-23 00:00:00 Completed TDAP 2020-06-09 00:00:00 Completed [facility] PPD (TB) 2020-06-09 00:00:00 Completed [facility] Influenza Virus Vaccine 2020-06-09 00:00:00 Completed [facility] HPV9 2020-06-09 00:00:00 Completed [facility] HEPATITIS A 2020-06-09 00:00:00 Completed [facility] Hep B, Adol or Pedi Dosage 2020-06-09 00:00:00 Completed [facility] HIB 4 Dose Schedule 2020-06-09 00:00:00 Completed [facility] HPV 2020-06-09 00:00:00 Completed [facility] Meningococcal Polysaccharide (groups A, C, Y and W-135) conjugate vaccine (MCV4P) 2020-06-09 00:00:00 Completed [facility] Meningococcal B, OMV 2020-06-09 00:00:00 Completed [facility] MMR 2020-06-09 00:00:00 Completed [facility] Pneumococcal 7 Conjugate, PCV7 (Prevnar7) 2020-06-09 00:00:00 Completed [facility] IPV 2020-06-09 00:00:00 Completed [facility] Varicella (varivax)(chicken pox) 2020-06-09 00:00:00 Completed [facility] TDAP 2020-06-09 00:00:00 Completed [facility] PPD (TB) 2020-06-09 00:00:00 Completed [facility] Influenza Virus Vaccine 2020-06-09 00:00:00 Completed [facility] HPV9 2020-06-09 00:00:00 Completed [facility] HEPATITIS A 2020-06-09 00:00:00 Completed [facility] Hep B, Adol or Pedi Dosage 2020-06-09 00:00:00 Completed [facility] HIB 4 Dose Schedule 2020-06-09 00:00:00 Completed [facility] HPV 2020-06-09 00:00:00 Completed [facility] Meningococcal Polysaccharide (groups A, C, Y and W-135) conjugate vaccine (MCV4P) 2020-06-09 00:00:00 Completed [facility] Meningococcal B, OMV 2020-06-09 00:00:00 Completed [facility] MMR 2020-06-09 00:00:00 Completed [facility] Pneumococcal 7 Conjugate, PCV7 (Prevnar7) 2020-06-09 00:00:00 Completed [facility] IPV 2020-06-09 00:00:00 Completed [facility] Varicella (varivax)(chicken pox) 2020-06-09 00:00:00 Completed [facility] HPV9 2020-06-05 00:00:00 Completed [facility] HPV9 2020-06-05 00:00:00 Completed [facility] HPV9 2020-06-05 00:00:00 Completed [facility] HPV9 2020-06-05 00:00:00 Completed [facility] HPV9 2020-06-05 00:00:00 Completed [facility] HPV9 2020-06-05 00:00:00 Completed [facility] HPV9 2020-06-05 00:00:00 Completed [facility] HPV9 2020-06-05 00:00:00 Completed [facility] HPV9 2020-06-05 00:00:00 Completed [facility] HPV9 2020-06-05 00:00:00 Completed [facility] HPV9 2020-06-05 00:00:00 Completed [facility] HPV9 2020-06-05 00:00:00 Completed [facility] HPV9 2020-06-05 00:00:00 Completed [facility] HPV9 2020-06-05 00:00:00 Completed [facility] HPV9 2020-06-05 00:00:00 Completed [facility] HPV9 2020-06-05 00:00:00 Completed [facility] HPV9 2020-06-05 00:00:00 Completed [facility] HPV9 2020-06-05 00:00:00 Completed [facility] HPV9 2020-06-05 00:00:00 Completed [facility] HPV9 2020-06-05 00:00:00 Completed [facility] HPV9 2020-06-05 00:00:00 Completed [facility] HPV9 2020-06-05 00:00:00 Completed [facility] HPV9 2020-06-05 00:00:00 Completed [facility] HPV9 2020-06-05 00:00:00 Completed [facility] HPV9 2020-06-05 00:00:00 Completed [facility] HPV9 2020-06-05 00:00:00 Completed [facility] HPV9 2020-06-05 00:00:00 Completed [facility] HPV9 2020-06-05 00:00:00 Completed [facility] HPV9 2020-06-05 00:00:00 Completed [facility] HPV9 2020-06-05 00:00:00 Completed [facility] HPV9 2020-06-05 00:00:00 Completed [facility] HPV9 2020-06-05 00:00:00 Completed [facility] HPV9 2020-06-05 00:00:00 Completed [facility] HPV9 2020-06-05 00:00:00 Completed [facility] Influenza Virus Vaccine 2020-05-09 00:00:00 Completed [facility] Influenza Virus Vaccine 2020-05-09 00:00:00 Completed [facility] Influenza Virus Vaccine 2020-05-09 00:00:00 Completed [facility] Influenza Virus Vaccine 2020-05-09 00:00:00 Completed [facility] Influenza Virus Vaccine 2020-05-09 00:00:00 Completed [facility] Influenza Virus Vaccine 2020-05-09 00:00:00 Completed [facility] Influenza Virus Vaccine 2020-05-09 00:00:00 Completed [facility] Influenza Virus Vaccine 2020-05-09 00:00:00 Completed [facility] Influenza Virus Vaccine 2020-05-09 00:00:00 Completed [facility] Influenza Virus Vaccine 2020-05-09 00:00:00 Completed [facility] Influenza Virus Vaccine 2020-05-09 00:00:00 Completed [facility] Influenza Virus Vaccine 2020-05-09 00:00:00 Completed [facility] Influenza Virus Vaccine 2020-05-09 00:00:00 Completed [facility] Influenza Virus Vaccine 2020-05-09 00:00:00 Completed [facility] Influenza Virus Vaccine 2020-05-09 00:00:00 Completed [facility] Influenza Virus Vaccine 2020-05-09 00:00:00 Completed [facility] Influenza Virus Vaccine 2020-05-09 00:00:00 Completed [facility] Influenza Virus Vaccine 2020-05-09 00:00:00 Completed [facility] Influenza Virus Vaccine 2020-05-09 00:00:00 Completed [facility] Influenza Virus Vaccine 2020-05-09 00:00:00 Completed [facility] Influenza Virus Vaccine 2020-05-09 00:00:00 Completed [facility] Influenza Virus Vaccine 2020-05-09 00:00:00 Completed [facility] Influenza Virus Vaccine 2020-05-09 00:00:00 Completed [facility] Influenza Virus Vaccine 2020-05-09 00:00:00 Completed [facility] Influenza Virus Vaccine 2020-05-09 00:00:00 Completed [facility] Influenza Virus Vaccine 2020-05-09 00:00:00 Completed [facility] Influenza Virus Vaccine 2020-05-09 00:00:00 Completed [facility] Influenza Virus Vaccine 2020-05-09 00:00:00 Completed [facility] Influenza Virus Vaccine 2020-05-09 00:00:00 Completed [facility] Influenza Virus Vaccine 2020-05-09 00:00:00 Completed [facility] Influenza Virus Vaccine 2020-05-09 00:00:00 Completed [facility] Influenza Virus Vaccine 2020-05-09 00:00:00 Completed [facility] Influenza Virus Vaccine 2020-05-09 00:00:00 Completed [facility] Influenza Virus Vaccine 2020-05-09 00:00:00 Completed [facility] Meningococcal B, OMV 2018-03-01 00:00:00 Completed [facility] TDAP 2018-03-01 00:00:00 Completed [facility] Meningococcal B, OMV 2018-03-01 00:00:00 Completed [facility] TDAP 2018-03-01 00:00:00 Completed [facility] Meningococcal B, OMV 2018-03-01 00:00:00 Completed [facility] TDAP 2018-03-01 00:00:00 Completed [facility] Meningococcal B, OMV 2018-03-01 00:00:00 Completed [facility] TDAP 2018-03-01 00:00:00 Completed [facility] Meningococcal B, OMV 2018-03-01 00:00:00 Completed [facility] TDAP 2018-03-01 00:00:00 Completed [facility] Meningococcal B, OMV 2018-03-01 00:00:00 Completed [facility] TDAP 2018-03-01 00:00:00 Completed [facility] Meningococcal B, OMV 2018-03-01 00:00:00 Completed [facility] TDAP 2018-03-01 00:00:00 Completed [facility] Meningococcal B, OMV 2018-03-01 00:00:00 Completed TDAP 2018-03-01 00:00:00 Completed TDAP 2018-02-18 00:00:00 Completed [facility] PPD (TB) 2018-02-18 00:00:00 Completed [facility] TDAP 2018-02-18 00:00:00 Completed [facility] PPD (TB) 2018-02-18 00:00:00 Completed [facility] TDAP 2018-02-18 00:00:00 Completed [facility] PPD (TB) 2018-02-18 00:00:00 Completed [facility] TDAP 2018-02-18 00:00:00 Completed [facility] PPD (TB) 2018-02-18 00:00:00 Completed [facility] TDAP 2018-02-18 00:00:00 Completed [facility] PPD (TB) 2018-02-18 00:00:00 Completed [facility] TDAP 2018-02-18 00:00:00 Completed [facility] PPD (TB) 2018-02-18 00:00:00 Completed [facility] TDAP 2018-02-18 00:00:00 Completed [facility] PPD (TB) 2018-02-18 00:00:00 Completed [facility] TDAP 2018-02-18 00:00:00 Completed [facility] PPD (TB) 2018-02-18 00:00:00 Completed [facility] TDAP 2018-02-18 00:00:00 Completed [facility] PPD (TB) 2018-02-18 00:00:00 Completed [facility] TDAP 2018-02-18 00:00:00 Completed [facility] PPD (TB) 2018-02-18 00:00:00 Completed [facility] TDAP 2018-02-18 00:00:00 Completed [facility] PPD (TB) 2018-02-18 00:00:00 Completed [facility] TDAP 2018-02-18 00:00:00 Completed [facility] PPD (TB) 2018-02-18 00:00:00 Completed [facility] TDAP 2018-02-18 00:00:00 Completed [facility] PPD (TB) 2018-02-18 00:00:00 Completed [facility] TDAP 2018-02-18 00:00:00 Completed [facility] PPD (TB) 2018-02-18 00:00:00 Completed [facility] TDAP 2018-02-18 00:00:00 Completed [facility] PPD (TB) 2018-02-18 00:00:00 Completed [facility] TDAP 2018-02-18 00:00:00 Completed [facility] PPD (TB) 2018-02-18 00:00:00 Completed [facility] TDAP 2018-02-18 00:00:00 Completed [facility] PPD (TB) 2018-02-18 00:00:00 Completed [facility] TDAP 2018-02-18 00:00:00 Completed [facility] PPD (TB) 2018-02-18 00:00:00 Completed [facility] TDAP 2018-02-18 00:00:00 Completed [facility] PPD (TB) 2018-02-18 00:00:00 Completed [facility] TDAP 2018-02-18 00:00:00 Completed [facility] PPD (TB) 2018-02-18 00:00:00 Completed [facility] TDAP 2018-02-18 00:00:00 Completed [facility] PPD (TB) 2018-02-18 00:00:00 Completed [facility] TDAP 2018-02-18 00:00:00 Completed [facility] PPD (TB) 2018-02-18 00:00:00 Completed [facility] TDAP 2018-02-18 00:00:00 Completed [facility] PPD (TB) 2018-02-18 00:00:00 Completed [facility] TDAP 2018-02-18 00:00:00 Completed [facility] PPD (TB) 2018-02-18 00[facility]00:00 [facility] [facility] TDAP 2018-02-18 00:00:00 Completed [facility] PPD (TB) 2018-02-18 00:00:00 Completed [facility] TDAP 2018-02-18 00:00:00 Completed [facility] PPD (TB) 2018-02-18 00:00:00 Completed [facility] TDAP 2018-02-18 00:00:00 Completed [facility] PPD (TB) 2018-02-18 00:00:00 Completed [facility] TDAP 2018-02-18 00:00:00 Completed [facility] PPD (TB) 2018-02-18 00:00:00 Completed [facility] TDAP 2018-02-18 00:00:00 Completed [facility] PPD (TB) 2018-02-18 00:00:00 Completed [facility] TDAP 2018-02-18 00:00:00 Completed [facility] PPD (TB) 2018-02-18 00:00:00 Completed [facility] TDAP 2018-02-18 00:00:00 Completed [facility] PPD (TB) 2018-02-18 00:00:00 Completed [facility] TDAP 2018-02-18 00:00:00 Completed [facility] PPD (TB) 2018-02-18 00:00:00 Completed [facility] TDAP 2018-02-18 00:00:00 Completed [facility] PPD (TB) 2018-02-18 00:00:00 Completed [facility] TDAP 2018-02-18 00:00:00 Completed [facility] PPD (TB) 2018-02-18 00:00:00 Completed [facility] Meningococcal Polysaccharide (groups A, C, Y and W-135) conjugate vaccine (MCV4P) 2018-01-10 00:00:00 Completed [facility] Meningococcal B, OMV 2018-01-10 00:00:00 Completed [facility] Meningococcal Polysaccharide (groups A, C, Y and W-135) conjugate vaccine (MCV4P) 2018-01-10 00:00:00 Completed [facility] Meningococcal B, OMV 2018-01-10 00:00:00 Completed [facility] Meningococcal Polysaccharide (groups A, C, Y and W-135) conjugate vaccine (MCV4P) 2018-01-10 00:00:00 Completed [facility] Meningococcal B, OMV 2018-01-10 00:00:00 Completed [facility] Meningococcal Polysaccharide (groups A, C, Y and W-135) conjugate vaccine (MCV4P) 2018-01-10 00:00:00 Completed [facility] Meningococcal B, OMV 2018-01-10 00:00:00 Completed [facility] Meningococcal Polysaccharide (groups A, C, Y and W-135) conjugate vaccine (MCV4P) 2018-01-10 00:00:00 Completed [facility] Meningococcal B, OMV 2018-01-10 00:00:00 Completed [facility] Meningococcal Polysaccharide (groups A, C, Y and W-135) conjugate vaccine (MCV4P) 2018-01-10 00:00:00 Completed [facility] Meningococcal B, OMV 2018-01-10 00:00:00 Completed [facility] Meningococcal Polysaccharide (groups A, C, Y and W-135) conjugate vaccine (MCV4P) 2018-01-10 00:00:00 Completed [facility] Meningococcal B, OMV 2018-01-10 00:00:00 Completed [facility] Meningococcal Polysaccharide (groups A, C, Y and W-135) conjugate vaccine (MCV4P) 2018-01-10 00:00:00 Completed HPV 2013-10-24 00:00:00 Completed [facility] HPV 2013-10-24 00:00:00 Completed [facility] HPV 2013-10-24 00:00:00 Completed [facility] HPV 2013-10-24 00:00:00 Completed [facility] HPV 2013-10-24 00:00:00 Completed [facility] HPV 2013-10-24 00:00:00 Completed [facility] HPV 2013-10-24 00:00:00 Completed [facility] HPV 2013-10-24 00:00:00 Completed HPV 2013-01-31 00:00:00 Completed [facility] HPV 2013-01-31 00:00:00 Completed [facility] HPV 2013-01-31 00:00:00 Completed [facility] HPV 2013-01-31 00:00:00 Completed [facility] HPV 2013-01-31 00:00:00 Completed [facility] HPV 2013-01-31 00:00:00 Completed [facility] HPV 2013-01-31 00:00:00 Completed [facility] HPV 2013-01-31 00:00:00 Completed HPV 2012-12-01 00:00:00 Completed [facility] HPV 2012-12-01 00:00:00 Completed [facility] HPV 2012-12-01 00:00:00 Completed [facility] HPV 2012-12-01 00:00:00 Completed [facility] HPV 2012-12-01 00:00:00 Completed [facility] HPV 2012-12-01 00:00:00 Completed [facility] HPV 2012-12-01 00:00:00 Completed [facility] HEPATITIS A 2012-06-01 00:00:00 Completed [facility] Meningococcal Polysaccharide (groups A, C, Y and W-135) conjugate vaccine (MCV4P) 2012-06-01 00:00:00 Completed [facility] TDAP 2012-06-01 00:00:00 Completed [facility] Varicella (varivax)(chicken pox) 2012-06-01 00:00:00 Completed [facility] HEPATITIS A 2012-06-01 00:00:00 Completed [facility] Meningococcal Polysaccharide (groups A, C, Y and W-135) conjugate vaccine (MCV4P) 2012-06-01 00:00:00 Completed [facility] TDAP 2012-06-01 00:00:00 Completed [facility] Varicella (varivax)(chicken pox) 2012-06-01 00:00:00 Completed [facility] HEPATITIS A 2012-06-01 00:00:00 Completed [facility] Meningococcal Polysaccharide (groups A, C, Y and W-135) conjugate vaccine (MCV4P) 2012-06-01 00:00:00 Completed [facility] TDAP 2012-06-01 00:00:00 Completed [facility] Varicella (varivax)(chicken pox) 2012-06-01 00:00:00 Completed [facility] HEPATITIS A 2012-06-01 00:00:00 Completed [facility] Meningococcal Polysaccharide (groups A, C, Y and W-135) conjugate vaccine (MCV4P) 2012-06-01 00:00:00 Completed [facility] TDAP 2012-06-01 00:00:00 Completed [facility] Varicella (varivax)(chicken pox) 2012-06-01 00:00:00 Completed [facility] HEPATITIS A 2012-06-01 00:00:00 Completed [facility] Meningococcal Polysaccharide (groups A, C, Y and W-135) conjugate vaccine (MCV4P) 2012-06-01 00:00:00 Completed [facility] TDAP 2012-06-01 00:00:00 Completed [facility] Varicella (varivax)(chicken pox) 2012-06-01 00:00:00 Completed [facility] HEPATITIS A 2012-06-01 00:00:00 Completed [facility] Meningococcal Polysaccharide (groups A, C, Y and W-135) conjugate vaccine (MCV4P) 2012-06-01 00:00:00 Completed [facility] TDAP 2012-06-01 00:00:00 Completed [facility] Varicella (varivax)(chicken pox) 2012-06-01 00:00:00 Completed [facility] HEPATITIS A 2012-06-01 00:00:00 Completed [facility] Meningococcal Polysaccharide (groups A, C, Y and W-135) conjugate vaccine (MCV4P) 2012-06-01 00:00:00 Completed [facility] TDAP 2012-06-01 00:00:00 Completed [facility] Varicella (varivax)(chicken pox) 2012-06-01 00:00:00 Completed [facility] TDAP 2012-06-01 00:00:00 Completed Varicella (varivax)(chicken pox) 2012-06-01 00:00:00 Completed Pneumococcal 7 Conjugate, PCV7 (Prevnar7) 2002-06-11 00:00:00 Completed [facility] Pneumococcal 7 Conjugate, PCV7 (Prevnar7) 2002-06-11 00:00:00 Completed [facility] Pneumococcal 7 Conjugate, PCV7 (Prevnar7) 2002-06-11 00:00:00 Completed [facility] Pneumococcal 7 Conjugate, PCV7 (Prevnar7) 2002-06-11 00:00:00 Completed [facility] Pneumococcal 7 Conjugate, PCV7 (Prevnar7) 2002-06-11 00:00:00 Completed [facility] Pneumococcal 7 Conjugate, PCV7 (Prevnar7) 2002-06-11 00:00:00 Completed [facility] Pneumococcal 7 Conjugate, PCV7 (Prevnar7) 2002-06-11 00:00:00 Completed [facility] HIB 4 Dose Schedule 2002 00:00:00 Completed [facility] MMR 2002 00:00:00 Completed [facility] Varicella (varivax)(chicken pox) 2002 00:00:00 Completed [facility] HIB 4 Dose Schedule 2002 00:00:00 Completed [facility] MMR 2002 00:00:00 Completed [facility] Varicella (varivax)(chicken pox) 2002 00:00:00 Completed [facility] HIB 4 Dose Schedule 2002 00:00:00 Completed [facility] MMR 2002 00:00:00 Completed [facility] Varicella (varivax)(chicken pox) 2002 00:00:00 Completed [facility] HIB 4 Dose Schedule 2002 00:00:00 Completed [facility] MMR 2002 00:00:00 Completed [facility] Varicella (varivax)(chicken pox) 2002 00:00:00 Completed [facility] HIB 4 Dose Schedule 2002 00:00:00 Completed [facility] MMR 2002 00:00:00 Completed [facility] Varicella (varivax)(chicken pox) 2002 00:00:00 Completed [facility] HIB 4 Dose Schedule 2002 00:00:00 Completed [facility] MMR 2002 00:00:00 Completed [facility] Varicella (varivax)(chicken pox) 2002 00:00:00 Completed [facility] HIB 4 Dose Schedule 2002 00:00:00 Completed [facility] MMR 2002 00:00:00 Completed [facility] Varicella (varivax)(chicken pox) 2002 00:00:00 Completed [facility] HIB 4 Dose Schedule 2002 00:00:00 Completed Hep B, Adol or Pedi Dosage 2002-01-08 00:00:00 Completed [facility] HIB 4 Dose Schedule 2002-01-08 00:00:00 Completed [facility] IPV 2002-01-08 00:00:00 Completed [facility] Hep B, Adol or Pedi Dosage 2002-01-08 00:00:00 Completed [facility] HIB 4 Dose Schedule 2002-01-08 00:00:00 Completed [facility] IPV 2002-01-08 00:00:00 Completed [facility] Hep B, Adol or Pedi Dosage 2002-01-08 00:00:00 Completed [facility] HIB 4 Dose Schedule 2002-01-08 00:00:00 Completed [facility] IPV 2002-01-08 00:00:00 Completed [facility] Hep B, Adol or Pedi Dosage 2002-01-08 00:00:00 Completed [facility] HIB 4 Dose Schedule 2002-01-08 00:00:00 Completed [facility] IPV 2002-01-08 00:00:00 Completed [facility] Hep B, Adol or Pedi Dosage 2002-01-08 00:00:00 Completed [facility] HIB 4 Dose Schedule 2002-01-08 00:00:00 Completed [facility] IPV 2002-01-08 00:00:00 Completed [facility] Hep B, Adol or Pedi Dosage 2002-01-08 00:00:00 Completed [facility] HIB 4 Dose Schedule 2002-01-08 00:00:00 Completed [facility] IPV 2002-01-08 00:00:00 Completed [facility] Hep B, Adol or Pedi Dosage 2002-01-08 00:00:00 Completed [facility] HIB 4 Dose Schedule 2002-01-08 00:00:00 Completed [facility] IPV 2002-01-08 00:00:00 Completed [facility] Hep B, Adol or Pedi Dosage 2002-01-08 00:00:00 Completed IPV 2002-01-08 00:00:00 Completed HIB 4 Dose Schedule 2001 00:00:00 Completed [facility] Pneumococcal 7 Conjugate, PCV7 (Prevnar7) 2001 00:00:00 Completed [facility] IPV 2001 00:00:00 Completed [facility] HIB 4 Dose Schedule 2001 00:00:00 Completed [facility] Pneumococcal 7 Conjugate, PCV7 (Prevnar7) 2001 00:00:00 Completed [facility] IPV 2001 00:00:00 Completed [facility] HIB 4 Dose Schedule 2001 00:00:00 Completed [facility] Pneumococcal 7 Conjugate, PCV7 (Prevnar7) 2001 00:00:00 Completed [facility] IPV 2001 00:00:00 Completed [facility] HIB 4 Dose Schedule 2001 00:00:00 Completed [facility] Pneumococcal 7 Conjugate, PCV7 (Prevnar7) 2001 00:00:00 Completed [facility] IPV 2001 00:00:00 Completed [facility] HIB 4 Dose Schedule 2001 00:00:00 Completed [facility] Pneumococcal 7 Conjugate, PCV7 (Prevnar7) 2001 00:00:00 Completed [facility] IPV 2001 00:00:00 Completed [facility] HIB 4 Dose Schedule 2001 00:00:00 Completed [facility] Pneumococcal 7 Conjugate, PCV7 (Prevnar7) 2001 00:00:00 Completed [facility] IPV 2001 00:00:00 Completed [facility] HIB 4 Dose Schedule 2001 00:00:00 Completed [facility] Pneumococcal 7 Conjugate, PCV7 (Prevnar7) 2001 00:00:00 Completed [facility] IPV 2001 00:00:00 Completed [facility] HIB 4 Dose Schedule 2001 00:00:00 Completed Pneumococcal 7 Conjugate, PCV7 (Prevnar7) 2001 00:00:00 Completed IPV 2001 00:00:00 Completed IPV 2001 00:00:00 Completed [facility] IPV 2001 00:00:00 Completed [facility] IPV 2001 00:00:00 Completed [facility] IPV 2001 00:00:00 Completed [facility] IPV 2001 00:00:00 Completed [facility] IPV 2001 00:00:00 Completed [facility] IPV 2001 00:00:00 Completed [facility] HIB 4 Dose Schedule 2001 00:00:00 Completed [facility] IPV 2001 00:00:00 Completed [facility] HIB 4 Dose Schedule 2001 00:00:00 Completed [facility] IPV 2001 00:00:00 Completed [facility] HIB 4 Dose Schedule 2001 00:00:00 Completed [facility] IPV 2001 00:00:00 Completed [facility] HIB 4 Dose Schedule 2001 00:00:00 Completed [facility] IPV 2001 00:00:00 Completed [facility] HIB 4 Dose Schedule 2001 00:00:00 Completed [facility] IPV 2001 00:00:00 Completed [facility] HIB 4 Dose Schedule 2001 00:00:00 Completed [facility] IPV 2001 00:00:00 Completed [facility] HIB 4 Dose Schedule 2001 00:00:00 Completed [facility] IPV 2001 00:00:00 Completed [facility] HIB 4 Dose Schedule 2001 00:00:00 Completed IPV 2001 00:00:00 Completed Hep B, Adol or Pedi Dosage 2001 00:00:00 Completed [facility] Hep B, Adol or Pedi Dosage 2001 00:00:00 Completed [facility] Hep B, Adol or Pedi Dosage 2001 00:00:00 Completed [facility] Hep B, Adol or Pedi Dosage 2001 00:00:00 Completed [facility] Hep B, Adol or Pedi Dosage 2001 00:00:00 Completed [facility] Hep B, Adol or Pedi Dosage 2001 00:00:00 Completed [facility] Hep B, Adol or Pedi Dosage 2001 00:00:00 Completed [facility] Hep B, Adol or Pedi Dosage 2001 00:00:00 Completed Hep B, Adol or Pedi Dosage 2001 00:00:00 Completed [facility] Hep B, Adol or Pedi Dosage 2001 00:00:00 Completed [facility] Hep B, Adol or Pedi Dosage 2001 00:00:00 Completed [facility] Hep B, Adol or Pedi Dosage 2001 00:00:00 Completed [facility] Hep B, Adol or Pedi Dosage 2001 00:00:00 Completed [facility] Hep B, Adol or Pedi Dosage 2001 00:00:00 Completed [facility] Hep B, Adol or Pedi Dosage 2001 00:00:00 Completed [facility] Vital Signs Vital Name Observation Time Observation Value Comments S ource Systolic blood pressure 2025-01-17 15:01:00 121 mm[Hg] [facility] Diastolic blood pressure 2025-01-17 15:01:00 76 mm[Hg] [facility] Heart rate 2025-01-17 15:01:00 90 /min [facility] Body temperature 2025-01-17 15:01:00 36.39 Annabelle [facility] Respiratory rate 2025-01-17 15:01:00 17 /min [facility] Body height 2025-01-17 15:01:00 170.2 cm [facility] Body weight 2025-01-17 15:01:00 118.888 kg [facility] BMI 2025-01-17 15:01:00 41.05 kg/m2 [facility] Systolic blood pressure 2024-11-27 19:43:00 130 mm[Hg] [facility] Diastolic blood pressure 2024-11-27 19:43:00 80 mm[Hg] [facility] Heart rate 2024-11-27 19:43:00 95 /min [facility] Body temperature 2024-11-27 19:43:00 36.33 Annabelle [facility] Respiratory rate 2024-11-27 19:43:00 20 /min [facility] Body height 2024-11-27 19:43:00 167.6 cm [facility] Body weight 2024-11-27 19:43:00 116.892 kg [facility] BMI 2024-11-27 19:43:00 41.59 kg/m2 [facility] Systolic blood pressure 2024-11-23 20:18:00 106 mm[Hg] [facility] Diastolic blood pressure 2024-11-23 20:18:00 75 mm[Hg] [facility] Heart rate 2024-11-23 20:18:00 110 /min [facility] Body temperature 2024-11-23 20:18:00 36.89 Annabelle [facility] Respiratory rate 2024-11-23 20:18:00 18 /min [facility] Body height 2024-11-23 20:18:00 167.6 cm [facility] Body weight 2024-11-23 20:18:00 116.348 kg [facility] BMI 2024-11-23 20:18:00 41.40 kg/m2 [facility] Oxygen saturation in Arterial blood by Pulse oximetry 2024-11-23 20:18:00 97 /min [facility] Systolic blood pressure 2024-11-19 15:12:00 120 mm[Hg] [facility] Diastolic blood pressure 2024-11-19 15:12:00 75 mm[Hg] [facility] Heart rate 2024-11-19 15:12:00 99 /min [facility] Body temperature 2024-11-19 15:12:00 36.28 Annabelle [facility] Respiratory rate 2024-11-19 15:12:00 18 /min [facility] Body height 2024-11-19 15:12:00 167.6 cm [facility] Body weight 2024-11-19 15:12:00 116.319 kg [facility] BMI 2024-11-19 15:12:00 41.39 kg/m2 [facility] Systolic blood pressure 2024-10-24 20:03:00 131 mm[Hg] [facility] Diastolic blood pressure 2024-10-24 20:03:00 80 mm[Hg] [facility] Heart rate 2024-10-24 20:03:00 92 /min [facility] Body temperature 2024-10-24 20:03:00 35.89 Annabelle [facility] Respiratory rate 2024-10-24 20:03:00 18 /min [facility] Body height 2024-10-24 20:03:00 167.6 cm [facility] Body weight 2024-10-24 20:03:00 114.941 kg [facility] BMI 2024-10-24 20:03:00 40.90 kg/m2 [facility] Systolic blood pressure 2024-08-15 13:13:00 127 mm[Hg] [facility] Diastolic blood pressure 2024-08-15 13:13:00 82 mm[Hg] [facility] Heart rate 2024-08-15 13:13:00 98 /min [facility] Body temperature 2024-08-15 13:13:00 36.44 Annabelle [facility] Respiratory rate 2024-08-15 13:13:00 18 /min [facility] Body height 2024-08-15 13:13:00 167.6 cm [facility] Body weight 2024-08-15 13:13:00 111.041 kg [facility] BMI 2024-08-15 13:13:00 39.51 kg/m2 [facility] Systolic blood pressure 2024-04-18 15:12:00 121 mm[Hg] [facility] Diastolic blood pressure 2024-04-18 15:12:00 78 mm[Hg] [facility] Heart rate 2024-04-18 15:12:00 82 /min [facility] Body temperature 2024-04-18 15:12:00 35.83 Annabelle [facility] Respiratory rate 2024-04-18 15:12:00 18 /min [facility] Body height 2024-04-18 15:12:00 [facility].1 cm [facility] 2024-04-18 15:12:00 109.589 kg [facility] BMI 2024-04-18 15:12:00 40.20 kg/m2 [facility] Systolic blood pressure 2024-01-25 13:25:00 118 mm[Hg] [facility] Diastolic blood pressure 2024-01-25 13:25:00 79 mm[Hg] [facility] Heart rate 2024-01-25 13:25:00 93 /min [facility] Body temperature 2024-01-25 13:25:00 36.39 Annabelle [facility] Respiratory rate 2024-01-25 13:25:00 18 /min [facility] Body height 2024-01-25 13:25:00 165.1 cm [facility] Body weight 2024-01-25 13:25:00 108.041 kg Univ [facility] BMI 2024-01-25 13:25:00 39.64 kg/m2 Univ [facility] HEIGHT 2023-09-20 11:46:00 167.6 cm WEIGHT 2023-09-20 11:46:00 81.647 kg Systolic blood pressure 2023-08-24 23:29:00 129 mm[Hg] [facility] Diastolic blood pressure 2023-08-24 23:29:00 85 mm[Hg] [facility] Heart rate 2023-08-24 23:29:00 101 /min Un[facility] Body temperature 2023-08-24 23:29:00 37.22 Annabelle [facility] Respiratory rate 2023-08-24 23:29:00 18 /min [facility] Body height 2023-08-24 23:29:00 165.1 cm Univ [facility] Body weight 2023-08-24 23:29:00 88.451 kg Univ [facility] BMI 2023-08-24 23:29:00 32.45 kg/m2 [facility] Oxygen saturation in Arterial blood by Pulse oximetry 2023-08-24 23:29:00 100 /min [facility] Systolic blood pressure 2023-08-09 16:41:00 121 mm[Hg] [facility] Diastolic blood pressure 2023-08-09 16:41:00 84 mm[Hg] [facility] Heart rate 2023-08-09 16:41:00 102 /min [facility] Body temperature 2023-08-09 16:41:00 37.11 Annabelle [facility] Body height 2023-08-09 16:41:00 165.1 cm Univ [facility] Body weight 2023-08-09 16:41:00 106.323 kg [facility] BMI 2023-08-09 16:41:00 39.01 kg/m2 Univ [facility] Systolic blood pressure 2023-03-31 13:08:00 107 mm[Hg] [facility] Diastolic blood pressure 2023-03-31 13:08:00 70 mm[Hg] [facility] Heart rate 2023-03-31 13:08:00 86 /min [facility] Body temperature 2023-03-31 13:08:00 36.11 Annabelle [facility] Respiratory rate 2023-03-31 13:08:00 18 /min [facility] Body height 2023-03-31 13:08:00 165.1 cm Univ [facility] Body weight 2023-03-31 13:08:00 103.239 kg Univ [facility] BMI 2023-03-31 13:08:00 37.87 kg/m2 Univ [facility] Oxygen saturation in Arterial blood by Pulse oximetry 2023-03-31 13:08:00 98 /min [facility] Oxygen saturation in Arterial blood by Pulse oximetry 2023-03-18 17:35:00 95 /min [facility] Heart rate 2023-03-18 17:30:00 94 /min [facility] Respiratory rate 2023-03-18 17:30:00 16 /min [facility] Systolic blood pressure 2023-03-18 17:25:00 115 mm[Hg] [facility] Diastolic blood pressure 2023-03-18 17:25:00 73 mm[Hg] [facility] Body temperature 2023-03-18 16:28:00 36.06 Annabelle [facility] Body height 2023-03-10 21:00:00 165.1 cm Univ [facility] Body weight 2023-03-10 21:00:00 101.606 kg [facility] BMI 2023-03-10 21:00:00 37.28 kg/m2 Univ [facility] Heart rate 2023-03-18 16:55:00 80 /min [facility] Respiratory rate 2023-03-18 16:55:00 14 /min [facility] Oxygen saturation in Arterial blood by Pulse oximetry 2023-03-18 16:55:00 100 /min [facility] Systolic blood pressure 2023-03-18 16:50:00 101 mm[Hg] [facility] Diastolic blood pressure 2023-03-18 16:50:00 63 mm[Hg] [facility] Body temperature 2023-03-18 16:28:00 36.06 Annabelle [facility] Body height 2023-03-10 21:00:00 165.1 cm [facility] Body weight 2023-03-10 21:00:00 101.606 kg [facility] BMI 2023-03-10 21:00:00 37.28 kg/m2 [facility] Systolic blood pressure 2023-02-28 20:19:00 120 mm[Hg] [facility] Diastolic blood pressure 2023-02-28 20:19:00 77 mm[Hg] [facility] Heart rate 2023-02-28 20:19:00 97 /min [facility] Body temperature 2023-02-28 20:19:00 36.67 Annabelle [facility] Respiratory rate 2023-02-28 20:19:00 19 /min [facility] Body height 2023-02-28 20:19:00 165.1 cm Univ [facility] Body weight 2023-02-28 20:19:00 104.327 kg Univ [facility] BMI 2023-02-28 20:19:00 38.27 kg/m2 Univ [facility] Oxygen saturation in Arterial blood by Pulse oximetry 2023-02-28 20:19:00 99 /min [facility] Systolic blood pressure 2023-02-15 15:53:00 120 mm[Hg] [facility] Diastolic blood pressure 2023-02-15 15:53:00 80 mm[Hg] [facility] Heart rate 2023-02-15 15:53:00 86 /min [facility] Body temperature 2023-02-15 15:53:00 36.11 Annabelle [facility] Respiratory rate 2023-02-15 15:53:00 16 /min [facility] Body height 2023-02-15 15:53:00 165.1 cm Univ [facility] Body weight 2023-02-15 15:53:00 101.742 kg [facility] BMI 2023-02-15 15:53:00 37.33 kg/m2 [facility] Oxygen saturation in Arterial blood by Pulse oximetry 2023-02-15 15:53:00 100 /min [facility] Systolic blood pressure 2022-07-22 20:21:00 120 mm[Hg] [facility] Diastolic blood pressure 2022-07-22 20:21:00 90 mm[Hg] [facility] Heart rate 2022-07-22 20:21:00 100 /min [facility] Body temperature 2022-07-22 20:21:00 36.61 Annabelle [facility] Respiratory rate 2022-07-22 20:21:00 18 /min [facility] Body height 2022-07-22 20:21:00 165.1 cm Univ [facility] Body weight 2022-07-22 20:21:00 101.061 kg [facility] BMI 2022-07-22 20:21:00 37.08 kg/m2 [facility] Systolic blood pressure 2022-06-30 17:32:00 118 mm[Hg] [facility] Diastolic blood pressure 2022-06-30 17:32:00 80 mm[Hg] [facility] Heart rate 2022-06-30 17:32:00 78 /min [facility] Body temperature 2022-06-30 17:32:00 36.89 Annabelle [facility] Respiratory rate 2022-06-30 17:32:00 18 /min [facility] Body height 2022-06-30 17:32:00 165.1 cm [facility] Body weight 2022-06-30 17:32:00 99.338 kg [facility] BMI 2022-06-30 17:32:00 36.44 kg/m2 [facility] Systolic blood pressure 2022-06-11 18:41:00 132 mm[Hg] [facility] Diastolic blood pressure 2022-06-11 18:41:00 73 mm[Hg] [facility] Heart rate 2022-06-11 18:41:00 98 /min [facility] Body temperature 2022-06-11 18:41:00 36.67 Annabelle [facility] Respiratory rate 2022-06-11 18:41:00 16 /min [facility] Oxygen saturation in Arterial blood by Pulse oximetry 2022-06-11 18:41:00 100 /min [facility] Systolic blood pressure 2022-06-08 15:57:00 123 mm[Hg] [facility] Diastolic blood pressure 2022-06-08 15:57:00 80 mm[Hg] [facility] Heart rate 2022-06-08 15:57:00 95 /min [facility] Body temperature 2022-06-08 15:57:00 37.11 Annabelle [facility] Respiratory rate 2022-06-08 15:57:00 16 /min [facility] Body height 2022-06-08 15:57:00 165.1 cm Univ [facility] Body weight 2022-06-08 15:57:00 112.311 kg Univ [facility] BMI 2022-06-08 15:57:00 41.20 kg/m2 Univ [facility] Oxygen saturation in Arterial blood by Pulse oximetry 2022-06-08 15:57:00 99 /min [facility] Heart rate 2022-06-05 01:00:00 102 /min [facility] Oxygen saturation in Arterial blood by Pulse oximetry 2022-06-05 01:00:00 100 /min [facility] Systolic blood pressure 2022-06-05 00:30:00 134 mm[Hg] [facility] Diastolic blood pressure 2022-06-05 00:30:00 77 mm[Hg] [facility] Body temperature 2022-06-05 00:30:00 36.89 Annabelle [facility] Respiratory rate 2022-06-05 00:30:00 18 /min [facility] Body weight 2022-06-05 00:22:00 111.131 kg [facility] BMI 2022-06-05 00:22:00 40.77 kg/m2 Univ [facility] Systolic blood pressure 2022-06-02 20:15:00 128 mm[Hg] [facility] Diastolic blood pressure 2022-06-02 20:15:00 81 mm[Hg] [facility] Heart rate 2022-06-02 20:15:00 64 /min [facility] Body temperature 2022-06-02 20:15:00 36.72 Annabelle [facility] Respiratory rate 2022-06-02 20:15:00 18 /min [facility] Body height 2022-06-02 20:15:00 165.1 cm Univ [facility] Body weight 2022-06-02 20:15:00 110.224 kg Univ [facility] BMI 2022-06-02 20:15:00 40.44 kg/m2 Univ [facility] Systolic blood pressure 2022-05-29 03:53:00 119 mm[Hg] [facility] Diastolic blood pressure 2022-05-29 03:53:00 80 mm[Hg] [facility] Heart rate 2022-05-29 03:53:00 115 /min [facility] Body temperature 2022-05-29 03:53:00 36.39 Annabelle [facility] Respiratory rate 2022-05-29 03:53:00 18 /min [facility] Body height 2022-05-29 03:53:00 165.1 cm [facility] Body weight 2022-05-29 03:53:00 110.224 kg [facility] BMI 2022-05-29 03:53:00 40.44 kg/m2 [facility] Oxygen saturation in Arterial blood by Pulse oximetry 2022-05-29 03:53:00 100 /min [facility] Systolic blood pressure 2022-05-26 16:31:00 119 mm[Hg] [facility] Diastolic blood pressure 2022-05-26 16:31:00 79 mm[Hg] [facility] Heart rate 2022-05-26 16:31:00 94 /min [facility] Body temperature 2022-05-26 16:31:00 36.94 Annabelle [facility] Respiratory rate 2022-05-26 16:31:00 16 /min [facility] Body height 2022-05-26 16:31:00 165.1 cm [facility] Body weight 2022-05-26 16:31:00 109.589 kg [facility] BMI 2022-05-26 16:31:00 40.20 kg/m2 [facility] Oxygen saturation in Arterial blood by Pulse oximetry 2022-05-26 16:31:00 99 /min [facility] Systolic blood pressure 2022-05-19 17:05:00 113 mm[Hg] [facility] Diastolic blood pressure 2022-05-19 17:05:00 76 mm[Hg] [facility] Heart rate 2022-05-19 17:05:00 95 /min [facility] Body temperature 2022-05-19 17:05:00 36.67 Annabelle [facility] Respiratory rate 2022-05-19 17:05:00 18 /min [facility] Body height 2022-05-19 17:05:00 165.1 cm [facility] Body weight 2022-05-19 17:05:00 109.77 kg [facility] BMI 2022-05-19 17:05:00 40.27 kg/m2 [facility] Systolic blood pressure 2022-05-08 05:30:00 126 mm[Hg] [facility] Diastolic blood pressure 2022-05-08 05:30:00 71 mm[Hg] [facility] Heart rate 2022-05-08 05:30:00 120 /min [facility] Oxygen saturation in Arterial blood by Pulse oximetry 2022-05-08 05:30:00 99 /min [facility] Systolic blood pressure 2022-05-05 15:05:00 111 mm[Hg] [facility] Diastolic blood pressure 2022-05-05 15:05:00 72 mm[Hg] [facility] Heart rate 2022-05-05 15:05:00 88 /min [facility] Body temperature 2022-05-05 15:05:00 36.5 Annabelle [facility] Respiratory rate 2022-05-05 15:05:00 18 /min [facility] Body height 2022-05-05 15:05:00 165.1 cm [facility] Body weight 2022-05-05 15:05:00 107.276 kg [facility] BMI 2022-05-05 15:05:00 39.36 kg/m2 [facility] Systolic blood pressure 2022-04-30 02:30:00 132 mm[Hg] [facility] Diastolic blood pressure 2022-04-30 02:30:00 71 mm[Hg] [facility] Heart rate 2022-04-30 02:15:00 88 /min [facility] Oxygen saturation in Arterial blood by Pulse oximetry 2022-04-30 02:15:00 100 /min [facility] Body temperature 2022-04-30 01:15:00 37.11 Annabelle [facility] Respiratory rate 2022-04-30 01:15:00 16 /min [facility] Body height 2022-04-30 00:15:00 165.1 cm Univ [facility] Body weight 2022-04-30 00:15:00 107.502 kg Univ [facility] BMI 2022-04-30 00:15:00 39.44 kg/m2 [facility] Systolic blood pressure 2022-04-07 21:33:00 105 mm[Hg] [facility] Diastolic blood pressure 2022-04-07 21:33:00 70 mm[Hg] [facility] Heart rate 2022-04-07 21:33:00 83 /min Un[facility] Body temperature 2022-04-07 21:33:00 36.28 Annabelle [facility] Respiratory rate 2022-04-07 21:33:00 17 /min [facility] Body height 2022-04-07 21:33:00 165.1 cm Univ [facility] Body weight 2022-04-07 21:33:00 107.502 kg Univ [facility] BMI 2022-04-07 21:33:00 39.44 kg/m2 [facility] Systolic blood pressure 2022-03-26 19:31:00 111 mm[Hg] [facility] Diastolic blood pressure 2022-03-26 19:31:00 74 mm[Hg] [facility] Heart rate 2022-03-26 19:31:00 98 /min Un[facility] Body temperature 2022-03-26 19:31:00 36.72 Annabelle [facility] Respiratory rate 2022-03-26 19:31:00 18 /min [facility] Body height 2022-03-26 19:31:00 170.2 cm Univ [facility] Body weight 2022-03-26 19:31:00 107.412 kg Univ [facility] BMI 2022-03-26 19:31:00 37.09 kg/m2 Univ [facility] Systolic blood pressure 2022-03-12 20:38:00 113 mm[Hg] [place] [facility] Diastolic blood pressure 2022-03-12 20:38:00 73 mm[Hg] [facility] Heart rate 2022-03-12 20:38:00 94 /min [facility] 2022-03-12 20:38:00 36.61 Annabelle [facility] Respiratory rate 2022-03-12 20:38:00 18 /min [facility] Body height 2022-03-12 20:38:00 170.2 cm [facility] Body weight 2022-03-12 20:38:00 105.235 kg [facility] BMI 2022-03-12 20:38:00 36.34 kg/m2 [facility] WEIGHT 2020-10-16 20:36:00 96.616 kg WEIGHT 2020-10-16 20:36:00 96.616 kg Heart Rate 2023-05-22 13:58:42 [facility] Systolic (mm Hg) 2023-05-22 13:58:36 [facility] Diastolic (mm Hg) 2023-05-22 13:58:36 [facility] Heart Rate 2023-05-22 13:58:36 [facility] Temperature Oral (F) 2023-05-22 13:58:23 98.8 F [facility] Heart Rate 2023-05-22 05:55:18 [facility] Respitory Rate 2023-05-22 05:55:18 [facility] Systolic (mm Hg) 2023-05-22 05:55:09 [facility] Diastolic (mm Hg) 2023-05-22 05:55:09 [facility] Temperature Oral (F) 2023-05-22 05:55:01 98.3 F [facility] Respitory Rate 2023-05-21 21:47:43 [facility] Systolic (mm Hg) 2023-05-21 21:47:39 [facility] Diastolic (mm Hg) 2023-05-21 21:47:39 [facility] Temperature Oral (F) 2023-05-21 21:47:36 99 F [facility] Respitory Rate 2023-05-21 13:49:05 [facility] Height 2023-05-19 22:33:00 165.1 cm [facility] Weight 2023-05-19 22:33:00 [facility] Height 2023-05-19 22:12:00 5 [ft_i] [facility] Weight 2023-05-19 22:12:00 [facility] BMI Calculated 2023-05-19 22:12:00 [facility] Height 2023-05-19 17:06:00 165.1 cm [facility] BMI Calculated 2023-05-19 17:06:00 [facility] Weight 2023-05-19 17:06:00 [facility] Systolic (mm Hg) 2023-03-24 14:10:00 [facility] Diastolic (mm Hg) 2023-03-24 14:10:00 [facility] Temperature Oral (F) 2023-03-24 14:10:00 98.1 F [facility] Heart Rate 2023-03-24 10:04:00 [facility] Height 2023-03-24 09:19:00 5 [ft_i] [facility] BMI Calculated 2023-03-24 09:19:00 [facility] Weight 2023-03-24 09:19:00 [facility] Temperature Oral (F) 2023-02-13 01:36:00 98 F [facility] Heart Rate 2023-02-13 01:36:00 [facility] Systolic (mm Hg) 2023-02-13 01:36:00 [facility] Diastolic (mm Hg) 2023-02-13 01:36:00 [facility] Height 2023-02-12 22:03:00 5 [ft_i] [facility] BMI Calculated 2023-02-12 22:03:00 [facility] Weight 2023-02-12 22:03:00 [facility] Systolic blood pressure 2020-10-16 20:36:00 131 mm[Hg] [facility] Diastolic blood pressure 2020-10-16 20:36:00 71 mm[Hg] [facility] Heart rate 2020-10-16 20:36:00 103 /min [facility] Body temperature 2020-10-16 20:36:00 36.78 Annabelle [facility] Respiratory rate 2020-10-16 20:36:00 20 /min [facility] Body weight 2020-10-16 20:36:00 96.616 kg [facility] Oxygen saturation in Arterial blood by Pulse oximetry 2020-10-16 20:36:00 100 /min [facility] Procedures Procedure Date / Time Performed Performing Clinician Source POCT TEST 2024-11-27 19:46:00 Mckenzie Davis [facility] POCT MOLECULAR FLU 2024-11-23 20:37:00 Mely Glasgow [facility] POCT MOLECULAR COVID 2024-11-23 20:27:00 Lance Glasgow [facility] POCT TEST 2024-10-24 20:56:00 Sean Logan [facility] PROLACTIN 2024-08-15 14:00:00 Eugene Logan [facility] THYROID STIMULATING HORMONE 2024-08-15 14:00:00 Eugene Logan [facility] XR ELBOW >3 VW RIGHT 2023-08-25 00:00:49 Elvi Herbert [facility] CONSENT/REFUSAL FOR DIAGNOSIS AND TREATMENT 2023-08-24 23:21:29 Doctor Unassigned, [place] [facility] LAPAROSCOPIC CHOLECYSTECTOMY 2023-03-18 14:18:00 Micki [facility] POCT TEST 2023-03-18 13:34:00 [facility] 2023-03-18 13:34:00 Greg Rodriguez [facility] COMP. METABOLIC PANEL (07072) 2023-03-18 13:31:00 Micki [facility] COMP. METABOLIC PANEL (72273) 2023-03-18 13:31:00 Micki [facility] POCT GLUCOSE (AUTOMATED) 2023-03-18 13:29:00 Micki Shawnee tsai [facility] POCT GLUCOSE (AUTOMATED) 2023-03-18 13:29:00 Shawnee Sweet [facility] DAY SURGERY - ADC 2023-03-18 05:01:00 Doctor Alayna ssigned, [place] [facility] DISCLOSURE AND CONSENT, MEDICAL AND SURGICAL PROCEDURES 2023-03-02 05:01:00 Doctor Unassigned, [place] [facility] CONSENT/REFUSAL FOR DIAGNOSIS AND TREATMENT 2023-02-28 20:08:07 Doctor Unassigned, [place] [facility] THYROID STIMULATING HORMONE 2023-02-15 16:43:00 Ned Lewis [facility] COMP. METABOLIC PANEL (37047) 2023-02-15 16:43:00 Ned Lewis [facility] POCT GLUCOSE (AUTOMATED) 2023-02-15 16:19:00 Marah Moscoso [facility] POCT TEST 2022-07-22 20:21:00 Lizzy Reid [facility] CONSENT FOR CONTRACEPTION 2022-07-22 06:01:00 Do ctor Unassigned, [place] [facility] CBC WITH DIFF 2022-06-11 10:37:00 Adum, Nirmala Drew [facility] PREPARE PACKED RBC 2022-06-10 19:32:33 Adum, Nirmala Farnsworth [facility] PREPARE PACKED RBC 2022-06-10 18:57:28 Adum, Nirmala Farnsworth [facility] CENTRAL NEURAXIAL BLOCK 2022-06-10 15:55:06 Galilea Rodriguez [facility] CBC WITH DIFF 2022-06-10 10:07:00 Adum, Nirmala Drew [facility] HEPATITIS B SURFACE ANTIGEN 2022-06-10 10:07:00 Adum, Nirmala Farnsworth [facility] ADC OR MARIA TERESA ONLY - RPR 2022-06-10 10:07:00 Adum, Shanita Farnsworth [facility] HIV 1/2 AG-AB WITH REFLEX 2022-06-10 10:07:00 Adum, Shanita Farnsworth [facility] HB ABO GROUPING 2022-06-10 10:00:00 Adum, Nirmala Reddy [facility] RHO (D) IMMUNE GLOBULIN 2022-06-10 10:00:00 Adum, Amy Farnsworth [facility] POCT URINALYSIS W/O SPECIFIC GRAVITY 2022-06-08 00:00:00 Adum, Nirmala Farnsworth [facility] URINALYSIS 2022-06-05 00:57:00 Anselmo Estes [facility] ADC ONLY - FERN TEST 2022-06-05 00:57:00 Anselmo Estes [facility] ASSIGNMENT OF BENEFITS 2022-06-02 22:45:32 Docto r Unassigned, [place] [facility] CONSENT/REFUSAL FOR DIAGNOSIS AND TREATMENT 2022-06-02 22:43:24 Doctor Unassigned, [place] [facility] POCT URINALYSIS W/O SPECIFIC GRAVITY 2022-06-02 20:03:00 Adum, Nirmala Farnsworth [facility] CONSENT/REFUSAL FOR DIAGNOSIS AND TREATMENT 2022-05-29 03:37:47 Doctor Unassigned, [place] [facility] POCT URINALYSIS W/O SPECIFIC GRAVITY 2022-05-26 00:00:00 Adum, Nirmala Farnsworth [facility] >14 WEEKS US LIMITED 2022-05-19 17:31:37 Adum, Nirmala Farnsworth [facility] GC & CHLAMYDIA AMPLIFIED ASSAY 2022-05-19 17:07:00 Adum, Nirmala Farnsworth [facility] GROUP B STREPTOCOCCUS BY PCR 2022-05-19 17:07:00 Adum, Nirmala Farnsworth [facility] TRICHOMONAS AMPLIFIED ASSAY 2022-05-19 17:07:00 Adum, Nirmala Farnsworth [facility] DSU PRE-OP 2022-05-19 06:01:00 Doctor Unass igned, [place] [facility] POCT URINALYSIS W/O SPECIFIC GRAVITY 2022-05-19 00:00:00 Adum, Nirmala [facility]arnsworth [facility] [facility] URINALYSIS 2022-05-08 06:30:00 Anselmo Estes [facility] ADC ONLY - FERN TEST 2022-05-08 05:43:00 Anselmo Estes [facility] CONSENT/REFUSAL FOR DIAGNOSIS AND TREATMENT 2022-05-08 03:30:02 Doctor Unassigned, [place] [facility] POCT URINALYSIS W/O SPECIFIC GRAVITY 2022-05-05 15:12:00 Adum, Nirmala Farnsworth [facility] URINALYSIS 2022-04-30 00:38:00 Anselmo Estes [facility] ADC CLC OR LCC ONLY - WET PREP 2022-04-30 00:38:00 Anselmo Estes [facility] CONSENT/REFUSAL FOR DIAGNOSIS AND TREATMENT 2022-04-29 23:37:46 Doctor Unassigned, [place] [facility] DME/SUPPLY JUSTIFICATION 2022-04-13 05:01:00 Doc tor Unassigned, [place] [facility] POCT URINALYSIS W/O SPECIFIC GRAVITY 2022-04-07 00:00:00 Adum, Nirmala Farnsworth [facility] TDAP VACCINE, >11 YRS, IM 2022-03-26 19:34:02 Adum, Shanita Farnsworth [facility] POCT URINALYSIS W/O SPECIFIC GRAVITY 2022-03-26 19:33:00 Adum, Nirmala Farnsworth [facility] GLUCOSE 1 HOUR POST PRANDIAL 2022-03-26 19:17:00 Adum, Nirmala Farnsworth [facility] CBC WITH DIFF 2022-03-26 19:17:00 Adum, Nirmala [facility] HB ABO GROUPING 2022-03-26 19:17:00 [facility]um[facility] - RPR 2022-03-26 19:17:00 Adum, Shanita Farnsworth [facility] HIV 1/2 AG-AB WITH REFLEX 2022-03-26 19:17:00 Adum, Shanita Farnsworth [facility] POCT URINALYSIS W/O SPECIFIC GRAVITY 2022-03-12 00:00:00 Adum, Nirmala Farnsworth [facility] SCANNED LAB RESULTS 2022-01-28 05:01:00 Doctor Crissy gutierrez, [place] [facility] Plan of Care Planned Activity Planned Date Details Comments Source Future Scheduled Test 2028-02-19 00:00:00 DTAP/TDAP/TD VACCINES (2 - Td or Tdap) [code = DTAP/TDAP/TD VACCINES (2 - Td or Tdap)] [facility] Future Scheduled Test 2028-02-19 00:00:00 DTAP/TDAP/TD VACCINES (2 - Td or Tdap) [code = DTAP/TDAP/TD VACCINES (2 - Td or Tdap)] [facility] Future Scheduled Test 2021-02-18 00:00:00 INFLUENZA VACCINE (#1) [code = INFLUENZA VACCINE (#1)] [facility] Future Scheduled Test 2021-02-18 00:00:00 INFLUENZA VACCINE (#1) [code = INFLUENZA VACCINE (#1)] [facility] Future Scheduled Test 2020-06-20 00:00:00 DEPRESSION SCREENING (12+) [code = DEPRESSION SCREENING (12+)] [facility] Future Scheduled Test 2020-06-20 00:00:00 DEPRESSION SCREENING (12+) [code = DEPRESSION SCREENING (12+)] [facility] Future Scheduled Test 2019 00:00:00 HEPATITIS C SCREENING [code = HEPATITIS C SCREENING] [facility] Future Scheduled Test 2019 00:00:00 HEPATITIS C SCREENING [code = HEPATITIS C SCREENING] [facility] Future Scheduled Test 2013 00:00:00 COVID-19 VACCINE (1) [code = COVID-19 VACCINE (1)] [facility] Future Scheduled Test 2013 00:00:00 COVID-19 VACCINE (1) [code = COVID-19 VACCINE (1)] [facility] Encounters Start Date/Time End Date/Time Encounter Type Admission Type Attending Clinicians Care Facility Care Department Encounter ID Source 2022-04-29 21:42:44 Outpatient X [facility] [id number] [facility] 2022-02-19 15:19:16 Outpatient X [facility] [id number] [facility] 2021-04-21 05:16:[address] [facility] [id number] [facility] 2021-04-21 02:34:[address] [facility] [id number] [facility] 2021-04-21 01:02:15 Outpatient X [facility] [id number] [facility] 2021-04-20 16:14:[address] [facility] [id number] [facility] 2021-04-20 07:18:08 Outpatient X [facility] [id number] [facility] 2021-04-20 07:17:[address] [facility] [id number] [facility] 2025-01-17 00:00:00 2025-01-17 11:29:41 Telephone Lashonda Hyatt [facility] 1.2.840.114 350.1.13.10 4.2.7.2.686 [id number] [facility] 2025-01-17 00:00:00 2025-01-17 11:29:15 Letter (Out) Lashonda Hyatt [facility] 1.2.840.114 350.1.13.10 4.2.7.2.686 [id number] [facility] 2025-01-17 10:00:00 2025-01-17 10:51:15 Office Visit R Pgy2-B Yoselyn Keating [facility] 1.2.840.114 350.1.13.10 4.2.7.2.686 [id number] [facility] 2025-01-10 00:00:00 2025-01-10 13:34:36 Telephone Tika Fox [facility] 1.2.840.114 350.1.13.10 4.2.7.2.686 [id number] [facility] 2025-01-01 13:15:00 2025-01-01 13:15:[address] [facility] [id number] [facility] 2025-01-01 09:00:00 2025-01-01 09:00:[address] [facility] [id number] [facility] 2024-12-26 00:00:00 2024-12-26 12:27:38 Telephone Pgy2 Pgy2 [facility] 1.2.840.114 350.1.13.10 4.2.7.2.686 [id number] [facility] 2024-11-27 15:45:00 2024-11-27 15:45:00 Web Publisher Visit COLE CARTY [facility] 1.2.840.114 350.1.13.10 4.2.7.2.686 [id number] [facility] 2024-11-27 14:30:00 2024-11-27 15:32:08 Office Visit COLE CARTY [facility] 1.2.840.114 350.1.13.10 4.2.7.2.686 [id number] [facility] 2024-11-26 00:00:00 2024-11-27 08:41:05 Telephone Pgy1 Pgy1 [facility] 1.2.840.114 350.1.13.10 4.2.7.2.686 [id number] [facility] 2024-11-23 14:40:00 2024-11-23 16:05:26 Urgent Care R Bernarda Glasgow [facility] 1.2.840.114 350.1.13.10 4.2.7.2.686 [id number] [facility] 2024-11-23 13:30:00 2024-11-23 13:30:00 Outpatient R EUGENE LOGAN [facility] [id number] [facility] 2024-11-19 00:00:00 2024-11-21 11:54:41 Telephone Pgy1 Pgy1 [facility] 1..114 350.1.13.10 4.2.7.2.686 [id number] [facility] 2024-11-19 10:15:00 2024-11-19 11:35:02 Office Visit MONA BEARDEN [facility] [place] [facility] MATERNAL & CHILD [facility] 1..114 350.1.13.10 4.2.7.2.686 [id number] [facility] 2024-10-25 08:30:00 2024-10-25 08:30:[address] [facility] [id number] [facility] 2024-10-24 14:30:00 2024-10-24 15:22:49 Outpatient R EUGENE LOGAN [facility] [id number] [facility] 2024-10-24 14:30:00 2024-10-24 15:22:49 Office Visit Eugene Logan [facility] 1..114 350.1.13.10 4.2.7.2.686 [id number] [facility] 2024-09-05 10:45:00 2024-09-05 10:45:[address] [facility] [id number] [facility] 2024-09-05 10:45:00 2024-09-05 10:45:[address] [facility] [id number] [facility] 2024-08-16 00:00:00 2024-08-16 14:50:14 Telephone Eugene Logan [facility] [place] [facility] & CHILD [facility] 1..114 350.1.13.10 4.2.7.2.686 [id number] [facility] 2024-08-16 00:00:00 2024-08-16 10:43:19 Telephone Eugene Logan [facility] [place] [facility] & CHILD [facility] 1.84.114 350.1.13.10 4.2.7.2.686 [id number] [facility] 2024-08-15 07:00:00 2024-08-15 08:03:[address] [facility] [id number] [facility] 2024-08-15 07:00:00 2024-08-15 08:03:07 Office Visit Eugene Logan Brenda A [facility] [place] [facility] CHILD [facility] ..114 350.1.13.10 4.2.7.2.686 [id number] [facility] 2024-07-13 09:35:00 2024-07-13 09:35:[address] [facility] [id number] [facility] 2024-04-18 00:00:00 2024-05-19 18:17:28 Patient Secure Msg Mona Matias [facility] [place] [facility] & CHILD [facility] .840.114 350.1.13.10 4.2.7.2.686 [id number] [facility] 2024-04-18 09:45:00 2024-04-18 10:42:[address] [facility] [id number] [facility] 2024-04-18 09:45:00 2024-04-18 10:42:37 Office Visit Mona Matias Brenda A [facility] [place] [facility] & CHILD [facility] .840.114 350.1.13.10 4.2.7.2.686 [id number] [facility] 2024-03-06 14:30:00 2024-03-06 14:30:[address] [facility] [id number] [facility] 2024-02-09 00:00:00 2024-02-10 07:00:41 Nurse Triage Asia Hale Teresa D [facility] .2.840.114 350.1.13.10 4.2.7.2.686 [id number] [facility] 2024-01-25 08:15:00 2024-01-25 09:25:[address] [facility] [id number] [facility] 2024-01-25 08:15:00 2024-01-25 09:25:32 Office Visit Erinn Reid [facility] [place] [facility]ERNAL & [facility] 1.2.840.114 350.1.13.10 4.2.7.2.686 [id number] [facility] 2024-01-20 10:30:00 2024-01-20 10:30:[address] [facility] [id number] [facility] 2024-01-17 10:45:00 2024-01-17 10:45:[address] [facility] [id number] [facility] 2023-09-20 11:51:00 2023-09-20 13:24:00 Emergency ER CASSIE RAOMS [facility] Emergency [id number] [facility] 2023-09-20 12:09:42 2023-09-20 12:09:42 Emergency [facility] [id number] [facility] 2023-09-09 09:00:00 2023-09-09 09:00:[address] [facility] [id number] [facility] 2023-08-24 17:33:00 2023-08-24 18:37:00 Emergency X RACHEL HERBERT [facility] ERT [id number] [facility] 2023-08-24 17:33:00 2023-08-24 18:37:00 Emergency Rachel Herbert [facility] 1.2.840.114 350.1.13.10 4.2.7.2.686 [id number] [facility] 2023-08-09 11:45:00 2023-08-09 12:00:00 Web Publisher Visit 2, Adc Lab AdNirmala roman [facility] 1.2.840.114 350.1.13.10 4.2.7.2.686 [id number] [facility] 2023-08-09 10:30:00 2023-08-09 11:13:09 [address]Z [address] [facility] [id number] [facility] 2023-08-09 10:30:00 2023-08-09 11:13:09 Office Visit Nirmala Reagan [facility] 1.2.840.114 350.1.13.10 4.2.7.2.686 [id number] [facility] 2023-07-20 11:00:00 2023-07-20 11:00:00 Outpatient NAOMIE THOMSON KRISTI [facility] [id number] [facility] 2023-05-31 15:00:00 2023-05-31 15:00:[address] [facility] [id number] [facility] 2023-05-19 16:43:26 2023-05-22 21:47:00 Inpatient HIREN [facility] [id number] Josephine farnsworth [place] 2023-05-19 14:04:00 2023-05-22 15:47:00 Inpatient NYLA GLOVER [facility] [id number] [facility] 2023-03-31 08:30:00 2023-03-31 08:56:05 Outpatient R MARICARMEN [facility] [id number] [facility] 2023-03-31 08:30:00 2023-03-31 08:56:05 Office Visit [facility] 1.2840.114 350.1.13.10 4.2.7.2.686 [id number] [facility] 2023-03-24 09:11:22 2023-03-24 14:15:00 Emergency [facility] [id number] Josephine farnsworth [place] 2023-03-18 08:16:00 2023-03-18 13:00:00 Outpatient R MARICARMEN SWE[facility] JACKY [id number] [facility] 2023-03-18 08:16:00 2023-03-18 13:00:00 Hospital Encounter [facility] [place] 1.2840.114 350.1.13.10 4.2.7.2.686 [id number] [facility] 2023-03-18 09:20:00 2023-03-18 11:57:00 Surgery [facility] [place] 1.2.840.114 350.1.13.10 4.2.7.2.686 [id number] [facility] 2023-03-18 00:00:00 2023-03-18 00:00:00 Orders Only Doctor Unassigned, [place] [facility] 1.2.840.114 350.1.13.10 4.2.7.2.686 [id number] [facility] 2023-03-10 00:00:00 2023-03-10 00:00:00 Telephone [facility] 1.2840.114 350.1.13.10 4.2.7.2.686 [id number] [facility] 2023-03-02 00:00:00 2023-03-02 00:00:00 Orders Only Doctor Unassigned, [place] [facility] 1.84.114 350.1.13.10 4.2.7.2.686 [id number] [facility] 2023-02-28 15:30:00 2023-02-28 16:18:12 Outpatient R MICKI [facility] [id number] [facility] 2023-02-28 15:30:00 2023-02-28 16:18:12 [facility] 1.84.114 350.1.13.10 4.2.7.2.686 [id number] [facility] 2023-02-28 14:00:00 2023-02-28 14:00:00 Outpatient R MICKI [facility] [id number] [facility] 2023-02-28 00:00:00 2023-02-28 00:00:00 Orders Only Doctor Unassigned, [place] [facility] 1.84.114 350.1.13.10 4.2.7.2.686 [id number] [facility] 2023-02-17 19:27:00 2023-02-17 21:46:00 Emergency EM Wong Murry [facility] [id number] [facility] 2023-02-17 11:15:00 2023-02-17 11:15:00 Outpatient R MICKI [facility] [id number] [facility] 2023-02-16 00:00:00 2023-02-16 00:00:00 Telephone Ned Lewis [facility] 1.840.114 350.1.13.10 4.2.7.2.686 [id number] [facility] 2023-02-15 11:00:00 2023-02-15 11:30:00 Office Visit Ned Lewis Jessey M [facility] 1..840.114 350.1.13.10 4.2.7.2.686 [id number] [facility] 2023-02-15 11:00:00 2023-02-15 11:00:00 Outpatient R ALESSIO MOSCOSO [facility] [id number] [facility] 2023-02-15 00:00:00 2023-02-15 00:00:00 Telephone Ned Lewis [facility] 1..840.114 350.1.13.10 4.2.7.2.686 [id number] [facility] 2023-02-12 21:58:58 2023-02-13 01:38:00 [id number] 2022-07-22 14:15:00 2022-07-22 15:37:30 Outpatient R EUGENE LOGAN [facility] [id number] [facility] 2022-07-22 14:15:00 2022-07-22 15:37:30 Office Visit Provider, Ang-Rmchp Eugene Brooke [facility] [place] [facility] 1..840.114 350.1.13.10 4.2.7.2.686 [id number] [facility] 2022-07-22 00:00:00 2022-07-22 00:00:00 Orders Only Doctor Unassigned, [place] [facility] 1..840.114 350.1.13.10 4.2.7.2.686 [id number] [facility] 2022-07-21 13:00:00 2022-07-21 13:00:00 Outpatient R ADNIRMALA ROMAN [facility] [id number] [facility] 2022-06-30 11:15:00 2022-06-30 11:48:55 Outpatient R ADNIRMALA ROMAN [facility] [id number] [facility] 2022-06-30 11:15:00 2022-06-30 11:48:55 Routine Visit Nirmala Reagan [facility] 1.2.840.114 350.1.13.10 4.2.7.2.686 [id number] [facility] 2022-06-10 03:41:00 2022-06-11 16:20:00 Inpatient P ADNIRMALA ROMAN [facility] [id number] [facility] 2022-06-10 03:41:00 2022-06-11 16:20:00 Hospital Encounter AdNirmala roman [facility] 1.2.840.114 350.1.13.10 4.2.7.2.686 [id number] [facility] 2022-06-10 09:40:00 2022-06-10 15:40:00 Anesthesia Event DaltonGreg valdivia Jeffrey [facility] 1.2.840.114 350.1.13.10 4.2.7.2.686 [id number] [facility] 2022-06-10 09:24:25 2022-06-10 09:24:25 Anesthesia Event MichaelGreg [facility] 1.2.840.114 350.1.13.10 4.2.7.2.686 [id number] [facility] 2022-06-08 10:00:00 2022-06-08 10:19:12 Outpatient R ADNIRMALA ROMAN [facility] [id number] [facility] 2022-06-08 10:00:00 2022-06-08 10:19:12 Routine Visit Adum, Nirmala [facility] 1.2.840.114 350.1.13.10 4.2.7.2.686 [id number] [facility] 2022-06-04 18:23:00 2022-06-04 21:04:00 Outpatient X ANSELMO ESTES [facility] [id number] [facility] 2022-06-04 18:23:00 2022-06-04 21:04:00 Emergency Anselmo Estes Cam Adum, [facility] 1.2.840.114 350.1.13.10 4.2.7.2.686 [id number] [facility] 2022-06-02 13:15:00 2022-06-02 13:30:00 Routine Visit Adum, Nirmala [facility] 1.2840.114 350.1.13.10 4.2.7.2.686 [id number] [facility] 2022-06-02 13:15:00 2022-06-02 13:15:00 Outpatient R ADUM, [facility] [id number] [facility] 2022-05-28 21:41:00 2022-05-28 23:58:00 Outpatient X ADUM, [facility] [id number] [facility] 2022-05-28 21:41:00 2022-05-28 23:58:00 Emergency Adum, [facility] 1.2.840.114 350.1.13.10 4.2.7.2.686 [id number] [facility] 2022-05-26 10:30:00 2022-05-26 10:53:31 Outpatient R ADUM, [facility] [id number] [facility] 2022-05-26 10:30:00 2022-05-26 10:53:31 Routine Visit Adjessie Nirmala Farnsworth [facility] 1.2.840.114 350.1.13.10 4.2.7.2.686 [id number] [facility] 2022-05-19 10:30:00 2022-05-19 11:25:43 Outpatient R TEZ NIRM[address] [facility] [id number] [facility] 2022-05-19 10:30:00 2022-05-19 11:25:43 Routine Visit TezNirmala [facility] 1.2.840.114 350.1.13.10 4.2.7.2.686 [id number] [facility] 2022-05-19 00:00:00 2022-05-19 00:00:00 Orders Only Doctor Unassigned, [place] [facility] 1.2.840.114 350.1.13.10 4.2.7.2.686 [id number] [facility] 2022-05-16 00:00:00 2022-05-16 00:00:00 Patient Secure Msg Doctor Unassigned, [place] [facility] 1.2.840.114 350.1.13.10 4.2.7.2.686 [id number] [facility] 2022-05-07 21:32:00 2022-05-08 01:29:00 Outpatient X ANSELMO ESTES [facility] [id number] [facility] 2022-05-07 21:32:00 2022-05-08 01:29:00 Emergency Anselmo Estes [facility] 1.2.840.114 350.1.13.10 4.2.7.2.686 [id number] [facility] 2022-05-06 08:45:00 2022-05-06 09:30:00 Web Publisher Visit Ultrasound, Ang-Mfya Jim Tong Ikuvbogie [facility] [place] [facility]ERNAL & [facility] 1..840.114 350.1.13.10 4.2.7.2.686 [id number] [facility] 2022-05-06 08:45:00 2022-05-06 08:45:00 [address] JIM TONG [facility] [id number] [facility] 2022-05-05 15:30:00 2022-05-05 15:30:00 Outpatient R NIRMALA REAGAN [facility] [id number] [facility] 2022-05-05 09:00:00 2022-05-05 09:34:[address] [facility] [id number] [facility] 2022-05-05 09:00:00 2022-05-05 09:34:30 Routine Visit Nirmala Reagan [facility] 1..840.114 350.1.13.10 4.2.7.2.686 [id number] [facility] 2022-05-04 09:30:00 2022-05-04 09:30:00 Outpatient R TEZ NIRMALA [facility] [id number] [facility] 2022-04-29 17:53:00 2022-04-29 21:05:00 Outpatient X ANSELMO ESTES [facility] LEIGH [id number] [facility] 2022-04-29 17:53:00 2022-04-29 21:05:00 Emergency Anselmo Estes [facility] 1..840.114 350.1.13.10 4.2.7.2.686 [id number] [facility] 2022-04-21 10:30:00 2022-04-21 10:30:[address] [facility] [id number] [facility] 2022-04-15 00:00:00 2022-04-15 00:00:00 Telephone Adum, Nirmala Farnsworth [facility] 1.2.840.114 350.1.13.10 4.2.7.2.686 [id number] [facility] 2022-04-13 00:00:00 2022-04-13 00:00:00 Telephone Adum, Nirmala Farnsworth [facility] 1.2.840.114 350.1.13.10 4.2.7.2.686 [id number] [facility] 2022-04-13 00:00:00 2022-04-13 00:00:00 Orders Only Doctor Unassigned, [place] [facility] 1.2.840.114 350.1.13.10 4.2.7.2.686 [id number] [facility] 2022-04-07 16:00:00 2022-04-07 16:58:09 Outpatient R ADUM, [facility] [id number] [facility] 2022-04-07 16:00:00 2022-04-07 16:58:09 Routine Visit Adum, Nirmala Farnsworth [facility] 1.2.840.114 350.1.13.10 4.2.7.2.686 [id number] [facility] 2022-03-26 15:45:00 2022-03-26 15:45:00 Routine Visit Adum, Nirmala Farnsworth [facility] 1.2.840.114 350.1.13.10 4.2.7.2.686 [id number] [facility] 2022-03-26 15:45:00 2022-03-26 14:50:34 Outpatient R ADUM, [facility] [id number] [facility] 2022-03-26 13:00:00 2022-03-26 14:13:16 Web Publisher Visit 2, Adc Lab Adum, Nirmala Farnsworth [facility] 1.2.840.114 350.1.13.10 4.2.7.2.686 [id number] [facility] 2022-03-25 00:00:00 2022-03-25 00:00:00 Case Management Adum, Nirmala Farnsworth [facility] 1.2.840.114 350.1.13.10 4.2.7.2.686 [id number] 134 [id number] [facility] 2022-03-17 14:30:00 2022-03-17 15:30:00 Web Publisher Visit 1, [facility] Room Jim Tong [facility] [employer] [facility] MATERNAL & [facility]ILD [facility]ALTH [facility] 1.2.840.114 350.1.13.10 4.2.7.2.686 [id number] [facility] 2022-03-17 14:30:00 2022-03-17 14:30:00 Outpatient P JIM TONG [facility] [id number] [facility] 2022-03-12 16:15:00 2022-03-12 16:15:00 Routine Visit Adum, Nirmala Farnsworth [facility] 1.2.840.114 350.1.13.10 4.2.7.2.686 [id number] [facility] 2022-03-12 16:15:00 2022-03-12 16:09:07 Outpatient R TEZ NIRMALA [facility] [id number] [facility] 2022-03-03 13:30:00 2022-03-03 13:30:00 Outpatient R PRESLEY MUNOZ [facility] [id number] [facility] 2022-02-25 13:00:00 2022-02-25 13:00:[address] [facility] [id number] [facility] 2022-02-25 13:00:00 2022-02-25 13:00:[address] [facility] [id number] [facility] 2022-02-25 13:00:00 2022-02-25 13:00:[address] [facility] [id number] [facility] 2022-02-23 16:15:00 2022-02-23 16:15:00 Outpatient R ADUM, NIRMALA [facility] [id number] [facility] 2022-02-23 16:15:00 2022-02-23 16:15:00 Outpatient R ADUM, NIRMALA [facility] [id number] [facility] 2022-02-19 00:00:00 2022-02-19 00:00:00 Telephone Adjessie Nirmala Farnsworth [facility] 1.2.840.114 350.1.13.10 4.2.7.2.686 [id number] [facility] 2022-02-16 15:45:00 2022-02-16 15:45:00 Outpatient R ADJESSIE [facility] [id number] [facility] 2022-02-16 15:45:00 2022-02-16 15:45:[address] [facility] [id number] [facility] 2022-02-09 00:00:00 2022-02-09 00:00:00 Telephone AdjessieNirmala [facility] 1.2.840.114 350.1.13.10 4.2.7.2.686 [id number] [facility] 2022-02-05 14:12:00 2022-02-05 18:50:00 Outpatient X [facility] [id number] [facility] 2022-02-05 14:12:00 2022-02-05 18:50:00 Emergency AdNirmala roman [facility] 1.2.840.114 350.1.13.10 4.2.7.2.686 [id number] [facility] 2022-02-05 00:00:00 2022-02-05 00:00:00 Patient Secure Msg AdNirmala roman [facility] 1.2.840.114 350.1.13.10 4.2.7.2.686 [id number] [facility] 2022-01-28 14:00:00 2022-01-28 14:00:[address] [facility] [id number] [facility] 2022-01-28 14:00:00 2022-01-28 14:00:[address] [facility] [id number] [facility] 2022-01-28 14:00:00 2022-01-28 14:00:[address] [facility] [id number] [facility] 2022-01-28 14:00:00 2022-01-28 14:00:[address] [facility] [id number] [facility] 2022-01-28 14:00:00 2022-01-28 14:00:[address] [facility] [id number] [facility] 2022-01-28 14:00:00 2022-01-28 14:00:[address] [facility] [id number] [facility] 2022-01-28 09:45:00 2022-01-28 10:00:00 Web Publisher Visit 2, Adc Lab Nirmala Reagan [facility] 1.2.840.114 350.1.13.10 4.2.7.2.686 [id number] [facility] 2022-01-28 09:45:00 2022-01-28 09:45:00 Outpatient R [facility] [id number] [facility] 2022-01-28 00:00:00 2022-01-28 00:00:00 Orders Only Doctor Unassigned, [place] [facility] 1.2.840.114 350.1.13.10 4.2.7.2.686 [id number] [facility] 2022-01-19 14:15:00 2022-01-19 14:30:00 Web Publisher Visit 2, Adc Lab Adum, Nirmala [facility] BUILD[facility] 1.2.840.114 350.1.13.10 4.2.7.2.686 [id number] [facility] 2022-01-19 13:00:00 2022-01-19 13:51:[address] [facility] [id number] [facility] 2022-01-19 13:00:00 2022-01-19 13:51:42 Routine Visit Ad, Nirmala [facility] 1.2.840.114 350.1.13.10 4.2.7.2.686 [id number] [facility] 2021-12-23 13:00:00 2021-12-23 13:00:[address] [facility] [id number] [facility] 2021-12-15 14:30:00 2021-12-15 16:02:[address] [facility] [id number] [facility] 2021-12-15 14:30:00 2021-12-15 16:02:36 Initial Visit AdNirmala roman [facility] BUILD[facility] 1.2.840.114 350.1.13.10 4.2.7.2.686 [id number] [facility] 2021-12-15 00:00:00 2021-12-15 00:00:00 Orders Only Doctor Unassigned, [place] [facility] 1.2.840.114 350.1.13.10 4.2.7.2.686 [id number] [facility] 2021-09-10 18:04:00 2021-09-10 18:05:00 Emergency X CARMEN PHILLIPS [facility] ERT [id number] [facility] 2021-09-10 18:04:00 2021-09-10 18:05:00 Emergency Carmen Phillips [facility] 1.2.840.114 350.1.13.10 4.2.7.2.686 [id number] [id number] [facility] 2021-09-10 00:00:00 2021-09-10 00:00:00 Orders Only Doctor Unassigned, [place] [facility] 1.2840.114 350.1.13.10 4.2.7.2.686 [id number] [facility] 2021-08-07 12:30:00 2021-08-07 12:30:00 Outpatient R ANSELMO ESTES [facility] [id number] [facility] 2021-08-05 00:00:00 2021-08-05 00:00:00 Patient Secure Msg Doctor Unassigned, [place] [facility] 1.2.840.114 350.1.13.10 4.2.7.2.686 [id number] [facility] 2021-07-28 10:30:00 2021-07-28 10:30:[address] [facility] [id number] [facility] 2021-06-24 10:30:00 2021-06-24 10:30:00 Outpatient R NIRMALA REAGAN [facility] [id number] [facility] 2021-05-26 13:00:00 2021-05-26 13:33:47 Outpatient R NIRMALA [facility] [id number] [facility] 2021-05-26 12:39:36 2021-05-26 13:33:47 Routine Visit Adum, Nirmala Farnsworth [facility] 1.2.840.114 350.1.13.10 4.2.7.2.686 [id number] [facility] 2021-05-06 12:09:00 2021-05-06 15:07:00 Emergency X Willian CONDON [facility] ERT [id number] [facility] 2021-05-06 12:09:00 2021-05-06 15:07:00 Emergency Willian Condon [facility] 1.2.840.114 350.1.13.10 4.2.7.2.686 [id number] [id number] [facility] 2021-05-06 00:00:00 2021-05-06 00:00:00 Orders Only Doctor Unassigned, [place] [facility] 1.2840.114 350.1.13.10 4.2.7.2.686 [id number] [facility] 2021-05-05 11:15:00 2021-05-05 11:57:24 Outpatient R ADJESSIE, NIRMALA [facility] [id number] [facility] 2021-05-05 11:06:53 2021-05-05 11:57:24 Routine Visit Adum, Nirmala Farnsworth [facility] 1.2.840.114 350.1.13.10 4.2.7.2.686 [id number] [facility] 2021-05-05 00:00:00 2021-05-05 00:00:00 Orders Only Doctor Unassigned, [place] [facility] 1.2840.114 350.1.13.10 4.2.7.2.686 [id number] [id number] [facility] 2021-04-17 00:00:00 2021-04-17 00:00:00 Orders Only Doctor Unassigned, [place] [facility] 1.2840.114 350.1.13.10 4.2.7.2.686 [id number] [facility] 2021-04-12 19:11:00 2021-04-15 14:25:00 Hospital Encounter Anselmo Estes [facility] 1.0.114 350.1.13.10 4.2.7.2.686 [id number] [facility] 2021-04-12 19:11:00 2021-04-15 14:25:00 Inpatient P FRANKLYN ANSELMO [facility] LEIGH [id number] [facility] 2021-04-15 09:00:00 2021-04-15 09:00:00 Outpatient R NIRMALA [facility]AG[facility] [id number] [facility] 2021-04-12 21:10:00 2021-04-13 07:32:00 Anesthesia Event Balaji Webb [facility] 1.0.114 350.1.13.10 4.2.7.2.686 [id number] [facility] 2021-04-12 00:00:00 2021-04-12 00:00:00 Orders Only Doctor Unassigned, [place] [facility] 1.20.114 350.1.13.10 4.2.7.2.686 [id number] [facility] 2021-04-10 13:14:40 2021-04-10 13:50:48 Routine Visit Nirmala Reagan [facility] 1.2.114 350.1.13.10 4.2.7.2.686 [id number] [facility] 2021-04-10 13:15:00 2021-04-10 13:15:00 Outpatient R ADNIRMALA ROMAN [facility] [id number] [facility] 2021-04-04 09:05:17 2021-04-04 09:20:17 Web Publisher Visit Pob, Adc Lab Main Nirmala Reagan [facility] 1.2840.114 350.1.13.10 4.2.7.2.686 [id number] [facility] 2021-04-04 09:15:00 2021-04-04 09:15:[address] [facility] [id number] [facility] 2021-04-03 15:40:27 2021-04-03 17:03:43 [facility] 1.20.114 350.1.13.10 4.2.7.2.686 [id number] [facility] 2021-04-03 16:00:00 2021-04-03 16:00:[address] [facility] [id number] [facility] 2021-04-03 00:00:00 2021-04-03 00:00:00 Orders Only Doctor Unassigned, [place] [facility] 1.0.114 350.1.13.10 4.2.7.2.686 [id number] [id number] [facility] 2021-03-27 12:11:00 2021-03-27 13:30:00 Emergency Estes, Anselmo Cam [facility] 1.2840.114 350.1.13.10 4.2.7.2.686 [id number] [id number] [facility] 2021-03-27 00:00:00 2021-03-27 00:00:00 Orders Only Doctor Unassigned, [place] [facility] 1.2840.114 350.1.13.10 4.2.7.2.686 [id number] [facility] 2021-03-20 16:00:16 2021-03-20 16:36:37 Routine Visit Adjessie Nirmala [facility] Building 1.2.840.114 350.1.13.10 4.2.7.2.686 [id number] [facility] 2021-03-20 16:15:00 2021-03-20 16:15:00 Outpatient R ADJESSIE, [facility] [id number] [facility] 2021-03-19 05:33:00 2021-03-19 11:00:00 Emergency Estes, Anselmo Alvarado [facility] 1.2.840.114 350.1.13.10 4.2.7.2.686 [id number] [facility] 2021-03-12 20:44:00 2021-03-13 00:16:00 Hospital Encounter ElieserMaynor [facility] 1.2.840.114 350.1.13.10 4.2.7.2.686 [id number] [facility] 2021-03-13 00:00:00 2021-03-13 00:00:00 Patient Secure Msg Adjessie, [facility] BUILDING 1.2840.114 350.1.13.10 4.2.7.2.686 [id number] [facility] 2021-03-12 10:15:00 2021-03-12 10:15:[address] [facility] [id number] [facility] 2021-03-12 08:24:03 2021-03-12 08:39:03 Web Publisher Visit 2, Adc Lab Adjessie, Nirmala [facility] Building 1.2.840.114 350.1.13.10 4.2.7.2.686 [id number] [facility] 2021-03-09 09:00:00 2021-03-09 09:00:[address] [facility] [id number] [facility] 2021-03-06 15:29:34 2021-03-06 16:34:44 Routine Visit Adum, Nirmala Farnsworth [facility] Building 1.2.840.114 350.1.13.10 4.2.7.2.686 [id number] [facility] 2021-03-06 16:00:00 2021-03-06 16:00:00 Outpatient R ADNIRMALA ROMAN [facility] [id number] [facility] 2021-02-20 15:55:08 2021-02-20 16:19:34 Routine Visit Adum, [facility] 1..840.114 350.1.13.10 4.2.7.2.686 [id number] [facility] 2021-02-20 16:00:00 2021-02-20 16:00:00 Outpatient R ADJESSIE, NIRMALA [facility] [id number] [facility] 2021-02-12 08:15:00 2021-02-12 08:15:[address] [facility] [id number] [facility] 2021-02-12 00:00:00 2021-02-12 00:00:00 Patient Secure Msg Adum, [facility] BUILDING 1..840.114 350.1.13.10 4.2.7.2.686 [id number] 134 [id number] [facility] 2021-02-07 00:00:00 2021-02-07 00:00:00 Case Management Adum, Nirmala [facility] Building 1.2.840.114 350.1.13.10 4.2.7.2.686 [id number] [facility] 2021-02-06 15:44:53 2021-02-06 16:42:05 Routine Visit Adum, Nirmala Farnsworth [facility] 1.2.840.114 350.1.13.10 4.2.7.2.686 [id number] 134 [id number] [facility] 2021-02-06 16:00:00 2021-02-06 16:00:00 Outpatient R ADUM, NIRMALA [facility] [id number] [facility] 2021-02-06 14:46:53 2021-02-06 15:01:53 Web Publisher Visit 2, Adc Lab Anselmo Estes [facility] 1..840.114 350.1.13.10 4.2.7.2.686 [id number] [facility] 2021-02-03 16:29:00 2021-02-03 17:16:00 Emergency Anselmo Estes [facility] 1..840.114 350.1.13.10 4.2.7.2.686 [id number] [facility] 2021-01-16 15:53:49 2021-01-16 16:31:24 Routine Visit Adum, Nirmala Farnsworth [facility] 1.2.840.114 350.1.13.10 4.2.7.2.686 [id number] [facility] 2021-01-16 16:00:00 2021-01-16 16:00:00 Outpatient R ADUM, NIRMALA [facility] [id number] [facility] 2020-12-29 00:00:00 2020-12-29 00:00:00 Patient Secure Msg Doctor Unassigned, [place] [facility] 1.2.840.114 350.1.13.10 4.2.7.2.686 [id number] [facility] 2020-12-27 17:41:00 2020-12-27 19:10:00 Emergency Nova, Beto Roman, Paul Rachel, Annika [facility] 1.2.840.114 350.1.13.10 4.2.7.2.686 [id number] [facility] 2020-12-27 00:00:00 2020-12-27 00:00:00 Patient Secure Msg Doctor Unassigned, [place] [facility] 1.2.840.114 350.1.13.10 4.2.7.2.686 [id number] [facility] 2020-12-27 00:00:00 2020-12-27 00:00:00 Patient Secure Msg Doctor Unassigned, [place] [facility] 1.2.840.114 350.1.13.10 4.2.7.2.686 [id number] [facility] 2020-12-27 00:00:00 2020-12-27 00:00:00 Orders Only Doctor Unassigned, [place] [facility] 1.2.840.114 350.1.13.10 4.2.7.2.686 [id number] [facility] 2020-12-17 14:15:29 2020-12-17 14:42:14 Routine Visit Nirmala Reagan [facility] 1.2.840.114 350.1.13.10 4.2.7.2.686 [id number] [facility] 2020-12-17 14:00:00 2020-12-17 14:00:00 Outpatient R NIRMALA REAGAN [facility] [id number] [facility] 2020-12-17 09:00:00 2020-12-17 09:00:00 Outpatient R ADUM, NIRMALA [facility] [id number] [facility] 2020-12-08 13:06:07 2020-12-08 14:21:07 Web Publisher Visit Ultrasound, Ivory House [facility] [place] SERVER [facility] MATERNAL & [facility] 1.2.840.114 350.1.13.10 4.2.7.2.686 [id number] [facility] 2020-12-08 13:00:00 2020-12-08 13:00:[address] [facility] [id number] [facility] 2020-12-05 10:00:00 2020-12-05 10:00:[address] [facility] [id number] [facility] 2020-11-19 10:48:03 2020-11-19 11:03:03 Web Publisher Visit 2, [facility] 1.2.840.114 350.1.13.10 4.2.7.2.686 [id number] [facility] 2020-11-19 09:40:43 2020-11-19 10:25:34 [facility] 1.2.840.114 350.1.13.10 4.2.7.2.686 [id number] [facility] 2020-11-19 10:00:00 2020-11-19 10:00:00 Outpatient R ADUM, [facility] [id number] [facility] 2020-10-23 09:30:00 2020-10-23 09:30:[address] [facility] [id number] [facility] 2020-10-23 00:00:00 2020-10-23 00:00:00 Orders Only Doctor Unassigned, [place] [facility] 1.2.840.114 350.1.13.10 4.2.7.2.686 [id number] [facility] 2020-10-22 13:37:02 2020-10-22 15:45:39 Initial Visit Nirmala Reagan [facility] Delgado Rees [facility] 1.2.840.114 350.1.13.10 4.2.7.2.686 [id number] [facility] 2020-10-22 13:30:00 2020-10-22 13:30:00 Outpatient R LOLISJESSIE NIRMALA [facility] [id number] [facility] 2020-10-22 13:00:00 2020-10-22 13:00:00 Outpatient R EUGENE LOGAN [facility] [id number] [facility] 2020-10-16 20:38:00 2020-10-16 21:08:00 Emergency Chandler, Will [facility] [id number] [facility] 2020-10-16 20:35:00 2020-10-16 20:35:00 Emergency ER CHANDLER, WILL [facility] Emergency [id number] [facility] 2020-10-16 00:00:00 2020-10-16 00:00:00 Travel [facility] [id number] [facility] 2020-10-09 00:00:00 2020-10-09 00:00:00 Patient Secure Msg Doctor Unassigned, [place] [facility] 1..114 350.1.13.10 4.2.7.2.686 [id number] [facility] 2020-10-01 00:00:00 2020-10-01 00:00:00 Patient Secure Msg Doctor Unassigned, [place] [facility] 1.840.114 350.1.13.10 4.2.7.2.686 [id number] [facility] 2020-09-24 12:45:10 2020-09-24 13:00:10 Routine Visit Eugene Logan [facility] [place] [facility] MATERNAL & [facility] 1.2.840.114 350.1.13.10 4.2.7.2.686 [id number] [facility] 2020-09-24 13:00:00 2020-09-24 13:00:00 Outpatient R EUGENE LOGAN [facility] [id number] [facility] 2020-09-17 00:00:00 2020-09-17 00:00:00 Abstract Eugene Logan [facility] [place] SERVER [facility] MATERNAL & CHILD [facility] 1.2.840.114 350.1.13.10 4.2.7.2.686 [id number] [facility] 2020-09-16 14:34:00 2020-09-16 15:19:00 Web Publisher Visit 1, O[facility] Room Olea Ivory Mcgrath [facility] [place] SERVER [facility] MATERNAL & CHILD HEALTH [facility] 1..840.114 350.1.13.10 4.2.7.2.686 [id number] [facility] 2020-09-16 14:45:00 2020-09-16 14:45:[address] [facility] [id number] [facility] 2020-09-16 08:00:00 2020-09-16 08:00:[address] [facility] [id number] [facility] 2020-09-09 00:00:00 2020-09-09 00:00:00 Patient Outreach Emmanuel Mon [facility]IZAB[facility] 1..840.114 350.1.13.10 4.2.7.2.686 [id number] [facility] 2020-09-08 12:57:04 2020-09-08 13:39:54 Routine Visit Faculty, Narendra MitchellMaynor Lopez [facility] [place] [facility] MATERNAL & CHILD [facility] 1.2.840.114 350.1.13.10 4.2.7.2.686 [id number] [facility] 2020-09-08 13:00:00 2020-09-08 13:00:[address] [facility] [id number] [facility] 2020-09-08 00:00:00 2020-09-08 00:00:00 Telephone Eugene Logan [facility] [place] SERVER [facility] & CHILD [facility] 1.2.840.114 350.1.13.10 4.2.7.2.686 [id number] [facility] 2020-09-03 00:00:00 2020-09-03 00:00:00 Telephone Eugene Logan [facility] [place] SERVER [facility] CHILD [facility] 1.2.840.114 350.1.13.10 4.2.7.2.686 [id number] [facility] 2020-09-01 00:00:00 2020-09-01 00:00:00 Telephone Eugene Logan [facility] [place] SERVER [facility] & CHILD [facility] 1.2.840.114 350.1.13.10 4.2.7.2.686 [id number] [facility] 2020-08-27 14:32:31 2020-08-27 15:37:07 Initial Visit Eugene Logna [facility] [place] SERVER [facility] & CHILD [facility] 1.2.840.114 350.1.13.10 4.2.7.2.686 [id number] [facility] 2020-08-27 14:00:00 2020-08-27 14:00:00 Outpatient R EUGENE LOGAN [facility] [id number] [facility] 2020-08-27 00:00:00 2020-08-27 00:00:00 Orders Only Doctor Unassigned, [place] [facility] 1.0.114 350.1.13.10 4.2.7.2.686 [id number] [facility] 2020-08-12 14:31:58 2020-08-12 14:48:22 Nurse Visit Visit, Yoselin Madrigal [facility] [place] [facility] 1.20.114 350.1.13.10 4.2.7.2.686 [id number] 2020-08-12 14:31:58 2020-08-12 14:48:22 Nurse Visit Visit, Presley Koch [facility] [place] [facility] 1.840.114 350.1.13.10 4.2.7.2.686 [id number] [facility] 2020-08-12 14:30:00 2020-08-12 14:30:[address] [facility] [id number] [facility] 2020-08-12 14:30:00 2020-08-12 14:30:00 Outpatient R PRESLEY MUNOZ [facility] [id number] [facility] 2020-06-18 07:56:00 2020-06-18 08:18:41 Nurse Visit Visit, Yoselin Madrigal [facility] 1..114 350.1.13.10 4.2.7.2.686 [id number] 2020-06-18 07:56:00 2020-06-18 08:18:41 Nurse Visit Visit, Presley Koch [facility] [place] [facility] 1.840.114 350.1.13.10 4.2.7.2.686 [id number] [facility] 2020-06-18 08:00:00 2020-06-18 08:00:00 Outpatient R MUN[facility]Z [facility] [id number] [facility] 2020-06-09 00:00:00 2020-06-09 00:00:00 Patient Secure Msg Doctor Unassigned, [place] [facility] [place] [facility] 1.2.840.114 350.1.13.10 4.2.7.2.686 [id number] [facility] 2020-06-09 00:00:00 2020-06-09 00:00:00 Patient Secure Msg Doctor Unassigned, [place] [facility] [place] [facility] 1.2.840.114 350.1.13.10 4.2.7.2.686 [id number] [facility] 2020-06-06 00:00:00 2020-06-06 00:00:00 Telephone Eugene Logan [facility] [place] [facility] 1.2.840.114 350.1.13.10 4.2.7.2.686 [id number] 2020-06-06 00:00:00 2020-06-06 00:00:00 Telephone Eugene Logan [facility] [place] [facility] 1.2.840.114 350.1.13.10 4.2.7.2.686 [id number] [facility] 2020-06-05 07:53:56 2020-06-05 08:47:44 Office Visit Eugene Logan [facility] [place] [facility] 1.2.840.114 350.1.13.10 4.2.7.2.686 [id number] [facility] 2020-06-05 08:00:00 2020-06-05 08:00:00 Outpatient R EUGENE LOGAN [facility] [id number] [facility] 2020-05-09 09:30:00 2020-05-09 09:30:00 [address] [facility] [id number] [facility] 2020-04-07 13:15:00 2020-04-07 13:15:00 [address] [facility] [id number] [facility] 2020-04-07 13:15:00 2020-04-07 13:15:00 [address] [facility] [id number] [facility] 2020-02-05 14:02:32 2020-02-06 08:55:27 Office Visit Eugene Logan [facility] MATERNAL & CHILD [facility] 1.840.114 350.1.13.10 [id number] [id number] [facility] 2020-02-05 14:00:00 2020-02-05 14:00:00 Outpatient [facility] [id number] [facility] 2020-02-05 00:00:00 2020-02-05 00:00:00 Orders Only Doctor Unassigned, [place] [facility] 1.84.114 350.1.13.10 [id number] [id number] [facility] 2019-11-20 15:45:00 2019-11-20 15:45:00 [address] [facility] [id number] [facility] 2019-11-20 15:45:00 2019-11-20 15:45:00 Outpatient [facility] [id number] [facility] 2019-11-06 00:00:00 2019-11-06 00:00:00 Telephone Eugene Logan [facility] & CHILD [facility] 1..114 350.1.13.10 [id number] [id number] [facility] 2019-07-26 00:00:00 2019-07-26 00:00:00 Patient Secure Msg Doctor Unassigned, [place] [facility] [id number] 350.1.13.10 4.2.7.2.686 [id number] [facility] 2019-07-26 00:00:00 2019-07-26 00:00:00 Patient Secure Msg Doctor Unassigned, [place] [facility] [facility] CHILD [facility] 1.2840.114 350.1.13.10 4.2.7.2.686 [id number] [facility] 2019-07-12 15:52:53 2019-07-12 16:23:20 Nurse Visit Pea-Rmchp Nurse Vst, Fp Nrpt Pills Class Eva Valiente [facility] [id number] 350.1.13.10 4.2.7.2.686 [id number] [facility] 2019-07-12 00:00:00 2019-07-12 00:00:00 Orders Only Doctor Unassigned, [place] [facility] 1.2840.114 350.1.13.10 4.2.7.2.686 [id number] [facility] Results Test Description Test Time Test Comments Results Result Co mments Source [facility] Molecular [id number] 20:49:10* Test Item Value Reference Range Interpretation Comme nts POCT Molecular FluA (test co de = 40506-1) Negative Negative POCT Molecular FluB (test co de = 75432-3) Negative Negative Lab Interpretation (test cod e = 12081-5) Normal [facility] Molecular [id number] 20:37:13* Test Item Value Reference Range Interpretation Comme nts SARS-CoV-2 Rapid ID NOW (test code = 88874-6) Not Detected Not Detected LAURIE (test code = LAURIE) ID NOW COVID-19 As say is an isothermal nucleic acid amplification test intended for the qualitative detection of nucleic acid from SARS-CoV-2 viral RNA in nasopharyngeal (WALKING DRAGLINE OPERATOR) specimens. It is used under Emergency Use Authorization (EUA) by FDA. The limit of detection (LOD) of the assay is 125 Genome Equivalents/mL. Please note that a new specimen is requested for testing, if clinically indicated, on tests performed past validated specimen stability time. A positive result is indicative of the presence of SARS-CoV-2 RNA. ?Clinical correlation with patient history and other diagnostic information is necessary to determine patient infection status. A negative (Not Detected) result does not preclude SARS-CoV-2 infection. In patients with a high suspicion of SARS-CoV-2 infection, negative results should be treated as presumptive negative and a new specimen should be tested with alternative nucleic acid amplification molecular test. Indeterminate: Unable to generate a valid test result on this specimen. ?Please collect a new specimen for repeat testing if clinically indicated. Lab Interpretation (test code = 88074-5) Normal [facility] [id number] 20:56:00* Test Item Value Reference Range Interpretation Comme nts POCT PREG (test code = 1605) Negative On board controls acceptable with C Line (test code = 3574) Yes POCT PREG LOT # (test code = 3575) POCT PREG TEST DATE ( test code = 3576) [facility] FOOT 3 VIEWS [id number] 14:12:26 [facility] 2000 Sex: FXR FOOT 3 VIEWS RIGHTIndication: FOOT INJURYComparison: None AvailableFindings: 3 views of the foot were obtained. No evidence of fracture, dislocation, or acute osseous abnormality. There is no focal soft tissue abnormality.No evidence of radiopaque foreign body. No acute findings.IMPRESSION:1.Noacute osseous abnormality.Electronically Signed By: Elvi De La Torre09/20/2023 14:14 CDTWorkstation Name: [id number] ELBOW 3+ VW [id number] 00:21:57EXAM: XR ELBOW 3+ VW RIGHT HISTORY: elbow pain COMPARISON: None available FINDINGS: Imaging of the elbow demonstrates preservation of joint spaces. Alignmentis maintained. No lytic or blastic bony lesion is noted. No aggressive bonydestructive change or periosteal reaction is appreciated. No acute b onyabnormality is demonstrated.[facility]RADRPT 2023-05-22 20:38:28* Test Item Value Reference Range Interpretation Comme nts RADRPT (test code = RADRPT) PROCEDURE INFORMATION: Exam: NM Lung Perfusion Exam date and time: 05/22/2023 1:39 PM Age: 23 years old Clinical indication: /elevated dimer, dyspnea, chest pain TECHNIQUE: Imaging protocol: Nuclear pulmonary perfusion imaging was performed. Views: Perfusion acquired with multiple projections. Radiopharmaceutical: 6.6 mCi Tc-99m MAA (Macroaggregated Albumin), IV. COMPARISON: CHEST 1VIEW DX 03/24/2023 5:02 AM FINDINGS: Perfusion: No perfusion defect. IMPRESSION: Normal lung perfusion exam. Davy Keating DO On 05/22/2023 14:37:07; [id number] [place] [id number] 19:08:24* Test Item Value Reference Range Interpretation Comme nts RADRPT (test code = RADRPT) PROCEDURE INFORMATION: Exam: US Duplex Lower Extremity Veins, Bilateral Exam date and time: 05/22/2023 12:20 PM Age: 23 years old Clinical indication: /elevated dimer, dyspnea, chest pain TECHNIQUE: Imaging protocol: Real-time duplex ultrasound of the bilateral extremities with 2-D song scale, color Doppler flow and spectral waveform analysis including responses to compression and other maneuvers (when performed) with image documentation. Complete exam focused on the lower extremity veins. COMPARISON: CT ED Abdomen/Pelvis IV contrast only 03/24/2023 7:19 AM FINDINGS: Right deep veins: Unremarkable. The common femoral, femoral, proximal profunda femoral and popliteal veins are patent without thrombus. Normal Doppler waveforms. Normal compressibility and/or augmentation response. Left deep veins: Unremarkable. The common femoral, femoral, proximal profunda femoral and popliteal veins are patent without thrombus. Normal Doppler waveforms. Normal compressibility and/or augmentation response. Superficial veins: Bilateral saphenofemoral junctions are patent without thrombus. Soft tissues: Unremarkable. IMPRESSION: No evidence of deep vein thrombosis. Shaw Toth MD On 05/22/2023 13:07:11; [id number] [facility] ChildrenEburogcUCJLKJ3080-58-06 00:49:04* Test Item Value Reference Range Interpretation Commshea nts RADRPT (test code = RADRPT) PROCEDURE INFORMATION: Exam: US Chest, Soft Tissue Exam date and time: 05/21/2023 5:27 PM Age: 23 years old Clinical indication: /mastitis TECHNIQUE: Imaging protocol: Real time ultrasound of the chest was performed with image documentation. Exam focused on the soft tissue. COMPARISON: CHEST US 05/19/2023 1:27 PM FINDINGS: Soft tissues: Soft tissue edema seen. No masses or collections is seen in the area of interest. IMPRESSION: No collection or mass seen in the area of interest. Luis Fernando Perez MD On 05/21/2023 18:47:57; [id number] [facility] HospitalVxxlqkgKPALCQXKM2654-62-98 16:36:00* Test Item Value Reference Range Interpretation [facility] Vancomycin AUC (test code = Vancomycin AUC) 16.7 [facility] ChildrenNzulzkpATWOSLUKCE8514-06-64 16:36:00* Test Item Value Reference Range Interpretation Comme [facility] Vancomycin AUC (test code = Vancomycin AUC) 16.7 [facility] ChildrenCHEM [id number] 11:50:00* Test Item Value Reference Range Interpretation Comme nts Glucose Lvl (test code = Glucose Lvl) 93 70-99 BUN (test code = BUN) 6 7-22 Creatinine Lvl (test code = Creatinine Lvl) 0.63 0.50-1.40 Sodium Lvl (test code = Sodium Lvl) 141 135-145 Potassium Lvl (test code = P otassium Lvl) 3.6 3.5-5.1 Chloride Lvl (test code = Chloride Lvl) 113 95-109 CO2 (test code = CO2) 24 24-32 Calcium Lvl (test code = Calcium Lvl) 9.0 8.5-10.5 AGAP (test code = AGAP) 7.6 10.0-20.0 eGFR (test code = eGFR) [address] [place], [place] [address]23-12-02 11:50:00* Test Item Value Reference Range Interpretation Comme [facility] Glucose Lvl (test code = Glucose Lvl) 93 70-99 BUN (test code = BUN) 6 7-22 Creatinine Lvl (test code = Creatinine Lvl) 0.63 0.50-1.40 Sodium Lvl (test code = Sodium Lvl) 141 135-145 Potassium Lvl (test code = P otassium Lvl) 3.6 3.5-5.1 Chloride Lvl (test code = Chloride Lvl) 113 95-109 CO2 (test code = CO2) 24 24-32 Calcium Lvl (test code = Calcium Lvl) 9.0 8.5-10.5 AGAP (test code = AGAP) 7.6 10.0-20.0 eGFR (test code = eGFR) [address] [place], [place] [address]23-12-02 11:50:00* Test Item Value Reference Range Interpretation Comme [facility] WBC (test code = WBC) 13.5 3.7-10.4 RBC (test code = RBC) 3.34 4.20-5.40 Hgb (test code = Hgb) 10.0 12.0-16.0 Hct (test code = Hct) 29.3 36.0-48.0 MCV (test code = MCV) 87.8 80.0-98.0 MCH (test code = MCH) 30.0 pg 27.0-31.0 MCHC (test code = MCHC) 34.2 32.0-36.0 RDW (test code = RDW) 13.5 11.5-14.5 Platelet (test code = Platelet) 234 133-450 MPV (test code = MPV) 7.3 7.4-10.4 D-Dimer (test code = D-Dimer) 2.20 [facility] HospitalNuucsmrCHIHROOPAA1908-74-95 11:50:00* Test Item Value Reference Range Interpretation Comme nts Vancomycin AUC (test code = Vancomycin AUC) 42.4 [facility]2023-12-01 21:03:00* Test Item Value Reference Range Interpretation Comme nts Glucose POC (test code = Glucose POC) 119 70-99 Gluc POC Comment 1 (test cod e = Gluc POC Comment 1) Notified RN/MD [facility]2023-12-01 19:47:00* Test Item Value Reference Range Interpretation Comme nts Ferritin Lvl (test code = Ferritin Lvl) 133 5-204 Iron (test code = Iron) 14 TIBC (test code = TIBC) 337 % Satur Fe (test code = % Satur Fe) 4 Vitamin B12 Lvl (test code = Vitamin B12 Lvl) 263 [facility] HospitalHzvwmtaRIITGEHZW2565-21-43 19:47:00* Test Item Value Reference Range Interpretation Comme nts TSH (test code = TSH) 1.200 0.360-3.740 Vitamin D, 25-OH, Total (nanette t code = Vitamin D, 25-OH, Total) 19 30-100 Ferritin Lvl (test code = Ferritin Lvl) 133 5-204 Iron (test code = Iron) 14 40-190 TIBC (test code = TIBC) 337 250-450 % Satur Fe (test code = % Satur Fe) 4 16-45 Vitamin B12 Lvl (test code = Vitamin B12 Lvl) [phone] [facility] [id number] 19:47:00* Test Item Value Reference Range Interpretation Comme [facility] Vitamin D, 25-OH, Total (nanette t code = Vitamin D, 25-OH, Total) 19 [facility] ChildrenTOBRAMYCIN:SUSC:PT:ISOLATE:ORDQN:[id number] 18:03:00* Test Item Value Reference Range Interpretation Comme [facility] Gram Stain Report (test code = Gram Stain Report) No Organisms Seen No WBC's Seen Culture: Aspirate/Body Fluid/Tissue (test code = Culture: Aspirate/Body Fluid/Tissue) Rare Staphylococcus Species, Not S. aureus . Growth In Subculture Broth Only : Acinetobacter baumannii Acinetobacter baumannii (test code = Acinetobacter baumannii) Acinetobacter baumannii [facility] ChildrenGram Stain Fmexfl0091-63-97 18:03:00* Test Item Value Reference Range Interpretation Comme nts Gram Stain Report (test code = Gram Stain Report) No Organisms Seen No WBC's Seen [facility] ChildrenCulture: Aspirate/Body Fluid/[id number] 18:03:00* Test Item Value Reference Range Interpretation Comme nts Culture: Aspirate/Body Fluid/Tissue (test code = Culture: Aspirate/Body Fluid/Tissue) Rare Staphylococcus Species, Not S. aureus . Growth In Subculture Broth Only : Gram Negative Rods , Identification And Sensitivity Pending [facility] ChildrenFejxmycRMAAGLHXOO6543-56-82 17:33:00* Test Item Value Reference Range Interpretation Comme nts Coronavirus (COVID-19) LAUREEN (test code = Coronavirus (COVID-19) LAUREEN) Not Detected 8(05/20/23 11:33 AM) [facility] PasoLECULAR ARBICSSQNU9071-17-09 17:33:00* Test Item Value Reference Range Interpretation Comme nts Source Adeno_Meta_Rhino (test code = Source Adeno_Meta_Rhino) Nasophrngl Swb *NA*(05/20/23 11:33 AM) Adenovirus (test code = Adenovirus) Negative (05/20/23 11:33 AM) Metapneumovirus (test code = Metapneumovirus) Negative (05/20/23 11:33 AM) Rhinovirus (test code = Rhinovirus) Negative 4(05/20/23 11:33 AM) [facility] ChildrenAxjlvzvPNCZEIMHZS7502-34-99 12:32:00* Test Item Value Reference Range Interpretation Comme nts Vancomycin AUC (test code = Vancomycin AUC) 5.9 [facility] ChildrenCHEM [id number] 12:32:00* Test Item Value Reference Range Interpretation Comme nts Glucose Lvl (test code = Glucose Lvl) 99 70-99 BUN (test code = BUN) 9 7-22 Creatinine Lvl (test code = Creatinine Lvl) 0.69 0.50-1.40 Sodium Lvl (test code = Sodium Lvl) 141 135-145 Potassium Lvl (test code = P otassium Lvl) 3.3 3.5-5.1 Chloride Lvl (test code = Chloride Lvl) 112 95-109 CO2 (test code = CO2) 22 24-32 AGAP (test code = AGAP) 10.3 10.0-20.0 Calcium Lvl (test code = Calcium Lvl) 9.0 8.5-10.5 B/C Ratio (test code = B/C Ratio) 13 1 6-25 Total Protein (test code = T otal Protein) 6.4 6.4-8.4 Albumin Lvl (test code = Albumin Lvl) 2.9 3.5-5.0 Globulin (test code = Globulin) 3.5 2.7-4.2 A/G Ratio (test code = A/G Ratio) 0.8 1 0.7-1.6 ALT (test code = ALT) 19 <=65 AST (test code = AST) 10 <=37 Alk Phos (test code = Alk Phos) 140 39-136 Bili Total (test code = Bili Total) 1.0 0.2-1.3 eGFR (test code = eGFR) 126 Magnesium Lvl (test code = M agnesium Lvl) 2.2 1.8-2.4 [facility] HospitalLvbxxttWDGMRBFXK5236-09-72 12:32:00* Test Item Value Reference Range Interpretation Comme nts B/C Ratio (test code = B/C Ratio) 13 1 6-25 Total Protein (test code = T otal Protein) 6.4 6.4-8.4 Albumin Lvl (test code = Albumin Lvl) 2.9 3.5-5.0 Globulin (test code = Globulin) 3.5 2.7-4.2 A/G Ratio (test code = A/G Ratio) 0.8 1 0.7-1.6 ALT (test code = ALT) 19 <=65 AST (test code = AST) 10 <=37 Alk Phos (test code = Alk Phos) 140 39-136 Bili Total (test code = Bili Total) 1.0 0.2-1.3 Magnesium Lvl (test code = M agnesium Lvl) 2.2 1.8-2.4 [facility] HospitalFveojygIMIZOTUJMT6765-36-85 12:32:00* Test Item Value Reference Range Interpretation Comme nts WBC (test code = WBC) 18.6 3.7-10.4 RBC (test code = RBC) 3.67 4.20-5.40 Hgb (test code = Hgb) 10.7 12.0-16.0 Hct (test code = Hct) 32.7 36.0-48.0 MCV (test code = MCV) 89.0 80.0-98.0 MCH (test code = MCH) 29.3 pg 27.0-31.0 MCHC (test code = MCHC) 32.9 32.0-36.0 RDW (test code = RDW) 13.4 11.5-14.5 Platelet (test code = Platelet) 256 133-450 MPV (test code = MPV) 7.4 7.4-10.4 Segs (test code = Segs) 80.0 45.0-75.0 Lymphocytes (test code = Lymphocytes) 11.7 20.0-40.0 Monocytes (test code = Monocytes) 6.8 2.0-12.0 Eosinophils (test code = Eosinophils) 1.3 <=4.0 Basophils (test code = Basophils) 0.2 <=1.0 Neutrophils # (test code = Neutrophils #) 14.8 1.5-8.1 Lymphocytes # (test code = Lymphocytes #) 2.2 1.0-5.5 Monocytes # (test code = Monocytes #) 1.3 <=0.8 Eosinophils # (test code = Eosinophils #) 0.2 <=0.5 [facility]2023-12-01 03:03:00* Test Item Value Reference Range Interpretation Comme nts Gluc POC Comment 2 (test cod e = Gluc POC Comment 2) Cleaned [facility] - [id number] 00:16:00* Test Item Value Reference Range Interpretation Comme nts MRSA by PCR (test code = MRSA by PCR) Negative 2(05/19/23 6:16 PM) [facility] AND [id number] 00:16:00* Test Item Value Reference Range Interpretation Comme nts UA Color (test code = UA Color) Yellow *NA*(05/19/23 6:16 PM) UA Turbidity (test code = UA Turbidity) Clear (05/19/23 6:16 PM) UA Spec Grav (test code = UA Spec Grav) 1.025 1 UA pH (test code = UA pH) 6.0 1 5.0-8.0 UA Protein (test code = UA Protein) Trace *ABN*(05/19/23 6:16 PM) UA Glucose (test code = UA Glucose) Negative (05/19/23 6:16 PM) UA Ketones (test code = UA Ketones) Trace *ABN*(05/19/23 6:16 PM) UA Bili (test code = UA Bili) Negative *NA*(05/19/23 6:16 PM) UA Blood (test code = UA Blood) Negative (05/19/23 6:16 PM) UA Urobilinogen (test code = UA Urobilinogen) 2.0 0.1-1.0 UA Nitrite (test code = UA Nitrite) Negative (05/19/23 6:16 PM) UA Leuk Est (test code = UA Leuk Est) Negative (05/19/23 6:16 PM) UA Sq Epi (test code = UA Sq Epi) Occasional /LPF UA WBC (test code = UA WBC) 1 <=5 UA RBC (test code = UA RBC) 2 <=2 [facility] [id number] 22:04:00* Test Item Value Reference Range Interpretation Comme nts Lactic Acid Lvl (test code = Lactic Acid Lvl) 1.6 0.5-2.2 [facility] HospitalYxnhiwkCCOHEJSRC5643-65-40 22:04:00* Test Item Value Reference Range Interpretation Comme nts Lactic Acid Lvl (test code = Lactic Acid Lvl) 1.6 0.5-2.2 [facility] CenterKusydkuHDHCIL4600-22-88 19:44:20* Test Item Value Reference Range Interpretation Comme nts RADRPT (test code = RADRPT) PROCEDURE INFORMATION: Exam: US Chest, Soft Tissue Exam date and time: 05/19/2023 1:07 PM Age: 23 years old Clinical indication: /mastitits, R/O abscess TECHNIQUE: Imaging protocol: Real time ultrasound of the chest was performed with image documentation. Exam focused on the soft tissue. COMPARISON: CHEST 1VIEW DX 03/24/2023 5:02 AM FINDINGS: Soft tissues: Unremarkable. No masses or collections in visualized area. IMPRESSION: Unremarkable soft tissue. Rai Huerta MD On 05/19/2023 13:42:54; [id number] [facility] ChildrenColsrpuKYZDAUTUGNLWV5846-04-32 18:00:00* Test Item Value Reference Range Interpretation Comme nts S Preg (test code = S Preg) Negative *NA*(05/19/23 12:00 PM) [facility] ChildrenCHEM [id number] 18:00:00* Test Item Value Reference Range Interpretation Comme nts Glucose Lvl (test code = Glucose Lvl) 128 70-99 BUN (test code = BUN) 19 7-22 Creatinine Lvl (test code = Creatinine Lvl) 1.28 0.50-1.40 Sodium Lvl (test code = Sodium Lvl) 140 135-145 Potassium Lvl (test code = P otassium Lvl) 3.4 3.5-5.1 Chloride Lvl (test code = Chloride Lvl) 108 95-109 CO2 (test code = CO2) 24 24-32 Calcium Lvl (test code = Calcium Lvl) 9.1 8.5-10.5 Total Protein (test code = T otal Protein) 7.5 6.4-8.4 Albumin Lvl (test code = Albumin Lvl) 3.8 3.5-5.0 ALT (test code = ALT) 22 <=65 AST (test code = AST) 14 <=37 Alk Phos (test code = Alk Phos) 169 39-136 Bili Total (test code = Bili Total) 1.5 0.2-1.3 AGAP (test code = AGAP) 11.4 10.0-20.0 B/C Ratio (test code = B/C Ratio) 15 1 6-25 Globulin (test code = Globulin) 3.7 2.7-4.2 A/G Ratio (test code = A/G Ratio) 1.0 1 0.7-1.6 eGFR (test code = eGFR) 61 Lactic Acid Lvl (test code = Lactic Acid Lvl) 2.6 0.5-2.2 Magnesium Lvl (test code = M agnesium Lvl) 1.7 1.8-2.4 [facility] ChildrenXwiixwhKDAMRYWBH4005-57-77 18:00:00* Test Item Value Reference Range Interpretation Comme nts pH Josse (test code = pH Josse) 7.35 1 7.28-7.42 pCO2 Josse (test code = pCO2 Josse) 42 38-52 pO2 Josse (test code = pO2 Josse) 39 20-49 HCO3 Josse (test code = HCO3 Josse) 23 22-26 BE Josse (test code = BE Josse) -2 -2-2 O2 Sat Josse (calc) (test code = O2 Sat Josse (calc)) 70.4 40.0-70.0 Temp Josse (test code = Temp Josse) 37.0 S Preg (test code = S Preg) Negative *NA*(05/19/23 12:00 PM) [facility] HospitalBevgpkyIXACCSMJTG2317-48-55 18:00:00* Test Item Value Reference Range Interpretation Comme nts WBC (test code = WBC) 21.3 3.7-10.4 RBC (test code = RBC) 4.12 4.20-5.40 Hgb (test code = Hgb) 12.3 12.0-16.0 Hct (test code = Hct) 37.0 36.0-48.0 MCV (test code = MCV) 89.8 80.0-98.0 MCH (test code = MCH) 29.8 pg 27.0-31.0 MCHC (test code = MCHC) 33.1 32.0-36.0 RDW (test code = RDW) 13.5 11.5-14.5 Platelet (test code = Platelet) 301 133-450 MPV (test code = MPV) 7.7 7.4-10.4 Segs (test code = Segs) 85.4 45.0-75.0 Lymphocytes (test code = Lymphocytes) 7.7 20.0-40.0 Monocytes (test code = Monocytes) 6.6 2.0-12.0 Eosinophils (test code = Eosinophils) 0.1 <=4.0 Basophils (test code = Basophils) 0.2 <=1.0 Neutrophils # (test code = Neutrophils #) 18.2 1.5-8.1 Lymphocytes # (test code = Lymphocytes #) 1.6 1.0-5.5 Monocytes # (test code = Monocytes #) 1.4 <=0.8 [facility] ChildrenVIRAL - [id number] 18:00:00* Test Item Value Reference Range Interpretation Comme nts Influ A (test code = Influ A) Negative (05/19/23 12:00 PM) Influ B (test code = Influ B) Negative 7(05/19/23 12:00 PM) [facility] Vlocj6610-56-95 18:00:00* Test Item Value Reference Range Interpretation Comme nts Culture: Blood (test code = Culture: Blood) No Growth At 5 Days [facility]IAL DNPSGERPV1965-14-45 17:57:00* Test Item Value Reference Range Interpretation Comme nts Hgb A1C (test code = Hgb A1C) 4.7 [facility] ChildrenCHEM ZGXCM6070-10-11 17:57:00* Test Item Value Reference Range Interpretation Comme nts Procalcitonin Lvl (test code = Procalcitonin Lvl) 3.89 <=0.10 Ketone Quantitative (test co de = Ketone Quantitative) 0.10 [facility] ChildrenMiyfosmNJYPZZJAB5769-03-12 17:57:00* Test Item Value Reference Range Interpretation Comme nts Hgb A1C (test code = Hgb A1C) 4.7 Procalcitonin Lvl (test code = Procalcitonin Lvl) 3.89 <=0.10 Ketone Quantitative (test co de = Ketone Quantitative) 0.10 [facility] ChildrenDnrpliuUTCILX7862-66-75 12:44:17* Test Item Value Reference Range Interpretation Comme nts RADRPT (test code = RADRPT) Radiation Dose CTDIVOL = 0 (mGy): DLP = 1963.14 (mGy-cm)PROCEDURE INFORMATION: Exam: CT Abdomen And Pelvis With Contrast Exam date and time: 03/24/2023 7:19 AM Age: 23 years old Clinical indication: /post op pain, recent demario TECHNIQUE: Imaging protocol: Computed tomography of the abdomen and pelvis with contrast. Radiation optimization: All CT scans at this facility use at least one of these dose optimization techniques: automated exposure control; mA and/or kV adjustment per patient size (includes targeted exams where dose is matched to clinical indication); or iterative reconstruction. Contrast material: OMNI 350ML; Contrast volume: 80 ml; Contrast route: INTRAVENOUS (IV); REPORTING DATA: Count of CT and Cardiac NM exams in prior 12 months: This patient has received 0 known CTs and 0 known cardiac nuclear medicine studies in the 12 months prior to the current study. COMPARISON: GALLBLADDER US 02/12/2023 7:09 PM RADIATION DOSE METRICS: Total DLP (mGy-cm): 1963.14 FINDINGS: Lungs: Dependent atelectasis/scarring in the partially imaged lung bases. Liver: Normal. No mass. Gallbladder and bile ducts: Status post cholecystectomy with mild stranding in the gallbladder fossa, expected in postsurgical state. No discrete fluid collection. No biliary ductal dilation. Pancreas: Normal. No ductal dilation. Spleen: Normal. No splenomegaly. Adrenal glands: Normal. No mass. Kidneys and ureters: Normal. No hydronephrosis. Stomach and bowel: Unremarkable. No obstruction. No mucosal thickening. Appendix: No evidence of appendicitis. Intraperitoneal space: Unremarkable. No free air. No significant fluid collection. Vasculature: Unremarkable. No abdominal aortic aneurysm. Lymph nodes: Unremarkable. No enlarged lymph nodes. Urinary bladder: Unremarkable as visualized. Reproductive: Unremarkable as visualized. Bones/joints: Unremarkable. No acute fracture. Soft tissues: Fat containing umbilical hernia. IMPRESSION: No evidence of acute pathology in the abdomen or pelvis. Specifically, no evidence of intra-abdominal abscess, significant fluid collection within the gallbladder fossa or small-bowel obstruction.Jung Mims MD On 03/24/2023 07:43:55; [id number] [facility]gxgoqyLTPXQL6120-42-90 10:24:12* Test Item Value Reference Range Interpretation Comme [facility] RADRPT (test code = RADRPT) PROCEDURE INFORMATION: Exam: XR Chest Exam date and time: 03/24/2023 5:02 AM Age: 23 years old Clinical indication: /abd pain TECHNIQUE: Imaging protocol: Radiologic exam of the chest. Views: 1 view. COMPARISON: No relevant prior studies available. FINDINGS: Lungs: No focal consolidation. Pleural spaces: Unremarkable. No pleural effusion. No pneumothorax. Heart/Mediastinum: No cardiomegaly. Bones/joints: No acute abnormality. IMPRESSION: No acute findings. Jake Fu MD On 03/24/2023 05:23:39; [id number] [facility]47[facility]-93 09:43:00* Test Item Value Reference Range Interpretation Comme [facility] Glucose Lvl (test code = Glucose Lvl) 104 70-99 BUN (test code = BUN) 16 7-22 Creatinine Lvl (test code = Creatinine Lvl) 0.75 0.50-1.40 Sodium Lvl (test code = Sodium Lvl) 140 135-145 Potassium Lvl (test code = P otassium Lvl) 4.1 3.5-5.1 Chloride Lvl (test code = Chloride Lvl) 108 95-109 CO2 (test code = CO2) 25 24-32 Calcium Lvl (test code = Calcium Lvl) 9.3 8.5-10.5 AGAP (test code = AGAP) 11.1 10.0-20.0 eGFR (test code = eGFR) 116 Lipase Lvl (test code = Lipase Lvl) 28 13-77 Total Protein (test code = T otal Protein) 8.2 6.4-8.4 Albumin Lvl (test code = Albumin Lvl) 3.8 3.5-5.0 ALT (test code = ALT) 27 <=65 AST (test code = AST) 14 <=37 Alk Phos (test code = Alk Phos) 172 39-136 Bili Total (test code = Bili Total) 0.3 0.2-1.3 Bili Direct (test code = Bili Direct) 0.1 <=0.3 Bili Indirect (test code = B jeffrey Indirect) 0.2 <=1.0 Globulin (test code = Globulin) 4.4 2.7-4.2 A/G Ratio (test code = A/G Ratio) 0.9 1 0.7-1.6 hCG Tot (test code = hCG Tot) no [facility]2023-10-05 09:43:00* Test Item Value Reference Range Interpretation Comme nts WBC (test code = WBC) 12.7 3.7-10.4 RBC (test code = RBC) 4.31 4.20-5.40 Hgb (test code = Hgb) 12.8 12.0-16.0 Hct (test code = Hct) 37.9 36.0-48.0 MCV (test code = MCV) 87.8 80.0-98.0 MCH (test code = MCH) 29.8 pg 27.0-31.0 MCHC (test code = MCHC) 33.9 32.0-36.0 RDW (test code = RDW) 13.9 11.5-14.5 Platelet (test code = Platelet) 363 133-450 MPV (test code = MPV) 7.5 7.4-10.4 Segs (test code = Segs) 67.3 45.0-75.0 Lymphocytes (test code = Lymphocytes) 22.5 20.0-40.0 Monocytes (test code = Monocytes) 7.9 2.0-12.0 Eosinophils (test code = Eosinophils) 1.6 <=4.0 Basophils (test code = Basophils) 0.7 <=1.0 Neutrophils # (test code = Neutrophils #) 8.5 1.5-8.1 Lymphocytes # (test code = Lymphocytes #) 2.9 1.0-5.5 Monocytes # (test code = Monocytes #) 1.0 <=0.8 Eosinophils # (test code = Eosinophils #) 0.2 <=0.5 Basophils # (test code = Basophils #) 0.[address] [facility] METABOLIC PANEL ([id number])2023-03-18 15:04:06* Test Item Value Reference Range Interpretation Comme nts NA (test code = 5011640031) 140 mmol/L 135-145 K (test code = 7525418142) 3.8 mmol/L 3.5-5.0 CL (test code = 2885051914) 104 mmol/L 98-108 CO2 TOTAL (test code = 8949071222) 24 mmol/L 23-31 AGAP (test code = 9394984195) 12 2-16 BUN (test code = 9472044144) 14 mg/dL 7-23 GLUCOSE (test code = 9177705765) 94 mg/dL 70-110 CREATININE (test code = 7524505209) 0.72 mg/dL 0.50-1.04 TOTAL BILI (test code = 5828823904) 0.4 mg/dL 0.1-1.1 CALCIUM (test code = 9879013034) 9.4 mg/dL 8.6-10.6 T PROTEIN (test code = 7270507224) 8.6 g/dL 6.3-8.2 H ALBUMIN (test code = 4489519097) 4.5 g/dL 3.5-5.0 ALK PHOS (test code = 8573090678) 181 U/L 34-122 H ALTv (test code = 1742-6) 21 U/L 5-35 AST(SGOT) (test code = 5089280008) 27 U/L 13-40 eGFR (test code = 7318723631) 101.3 mL/min/1.73m2 LAURIE (test code = LAURIE) Association of Glomerular Filtration Rate (GFR) and Staging of Kidney Disease* + --+ --+ ------+| GFR (mL/min/1.73 m2) ?| With Kidney Damage ?| ?Without Kidney Damage+ --------+ --------+ +| ?>90 ?| ?Stage one ?| ? Normal ?+ ---+ ---+ -------+| ?60-89 ?| ?Stage two ?| ? Decreased GFR ? + --+ --+ ------+| ?30-59 ?| ?Stage three ?| ? Stage three ? + --+ --+ ------+| ?15-29 ?| ?Stage four ? | ? Stage four ?+ ---+ ---+ -------+| ?<15 (or dialysis) ? ?| ?Stage five ? | ? Stage five ?+ ---+ ---+ -------+ *Each stage assumes the associated GFR level has been in effect for at least three months. ?Stages 1 to 5, with or without kidney disease, indicate chronic kidney disease. Notes: Determination of stages one and two (with eGFR >59mL/min/1.73 m2) requires estimation of kidney damage for at least three months as defined by structural or functional abnormalities of the kidney, manifested by either:Pathological abnormalities or Markers of kidney damage (including abnormalities in the composition of the blood or urine or abnormalities in imaging tests). Lab Interpretation (test code = 44984-9) Abnormal [facility]. METABOLIC PANEL (22388)2023-03-18 15:04:06* Test Item Value Reference Range Interpretation Comme nts NA (test code = 2973835260) 140 mmol/L 135-145 K (test code = 0864738185) 3.8 mmol/L 3.5-5.0 CL (test code = 2511263414) 104 mmol/L 98-108 CO2 TOTAL (test code = 8177303146) 24 mmol/L 23-31 AGAP (test code = 7626910740) 12 2-16 BUN (test code = 0900875467) 14 mg/dL 7-23 GLUCOSE (test code = 0448340362) 94 mg/dL 70-110 CREATININE (test code = 0524988194) 0.72 mg/dL 0.50-1.04 TOTAL BILI (test code = 1666298037) 0.4 mg/dL 0.1-1.1 CALCIUM (test code = 0812039688) 9.4 mg/dL 8.6-10.6 T PROTEIN (test code = 8640171623) 8.6 g/dL 6.3-8.2 H ALBUMIN (test code = 7975779410) 4.5 g/dL 3.5-5.0 ALK PHOS (test code = 5203232177) 181 U/L 34-122 H ALTv (test code = 1742-6) 21 U/L 5-35 AST(SGOT) (test code = 0516155122) 27 U/L 13-40 eGFR (test code = 3711139329) 101.3 mL/min/1.73m2 LAURIE (test code = LAURIE) Association of Glomerular Filtration Rate (GFR) and Staging of Kidney Disease* + --+ --+ ------+| GFR (mL/min/1.73 m2) ?| With Kidney Damage ?| ?Without Kidney Damage+ --------+ --------+ +| ?>90 ?| ?Stage one ?| ? Normal ?+ ---+ ---+ -------+| ?60-89 ?| ?Stage two ?| ? Decreased GFR ? + --+ --+ ------+| ?30-59 ?| ?Stage three ?| ? Stage three ? + --+ --+ ------+| ?15-29 ?| ?Stage four ? | ? Stage four ?+ ---+ ---+ -------+| ?<15 (or dialysis) ? ?| ?Stage five ? | ? Stage five ?+ ---+ ---+ -------+ *Each stage assumes the associated GFR level has been in effect for at least three months. ?Stages 1 to 5, with or without kidney disease, indicate chronic kidney disease. Notes: Determination of stages one and two (with eGFR >59mL/min/1.73 m2) requires estimation of kidney damage for at least three months as defined by structural or functional abnormalities of the kidney, manifested by either:Pathological abnormalities or Markers of kidney damage (including abnormalities in the composition of the blood or urine or abnormalities in imaging tests). Lab Interpretation (test code = 92226-8) Abnormal [facility] GLUCOSE (AUTOMATED)2023-03-18 13:35:45* Test Item Value Reference Range Interpretation Comme nts POCT GLU (test code = 7219988771) 92 mg/dL 70-110 Lab Interpretation (test cod e = 06217-0) Normal [facility] GLUCOSE (AUTOMATED)2023-03-18 13:35:45* Test Item Value Reference Range Interpretation Comme [facility] POCT GLU (test code = 2026202681) 92 mg/dL 70-110 Lab Interpretation (test cod e = 11131-7) Normal [facility] [id number] 13:34:00* Test Item Value Reference Range Interpretation Comme nts POCT PREG (test code = 1605) Negative On board controls acceptable with C Line (test code = 3574) Yes POCT PREG LOT # (test code = 3575) [id number] POCT PREG TEST DATE ( test code = 3576) 08/17/2024 [facility] [id number] 13:34:00* Test Item Value Reference Range Interpretation Comme [facility] POCT PREG (test code = 1605) Negative On board controls acceptable with C Line (test code = 3574) Yes POCT PREG LOT # (test code = 3575) [id number] POCT PREG TEST DATE ( test code = 3576) [facility]17/2024 [facility] [id number] 21:07:00* Test Item Value Reference Range Interpretation Comme [facility] HCG SERUM QUAL (test code = HCGQL) NEGATIVE NEGATIVE This HCGQL test is NOT applicable for MALE patients.Check with nurse about probable order error.If Tumor Marker Test needed, nurse should order test "HCGTU"(Test #550.47952) BASIC METABOLIC [id number] 21:07:00* Test Item Value Reference Range Interpretation Comme nts SODIUM (test code = NA) 138 mmol/L 136-145 N POTASSIUM (test code = K) 3.9 mmol/L 3.5-5.1 N CHLORIDE (test code = CL) 106.0 mmol/L 98-107 N CARBON DIOXIDE (test code = CO2) 26.0 mmol/L 21-32 N ANION GAP (test code = GAP) 9.9 10-20 L GLUCOSE (test code = GLU) 85 mg/dL 74-106 N BLOOD UREA NITROGEN (test code = BUN) 13 mg/dL 7-18 N GLOMERULAR FILTRATION RATE (test code = GFR) > 60 mL/min See_Comment The Glomerular Filtration Rate is a calculated parameterbased on serum Creatinine, patient age and sex. GFR valuesless than 60 mL/min/1.73 square meters are indicative ofChronic Kidney Disease. Values less than 15 mL/min/1.73square meters indicate Kidney failure. The calculation forGFR is based on the CKD-EPI (2020) calculation. This formulais race indifferent and is the recommended formula for GFRby the National Kidney Foundation for Adults.The GFR will not calculate if the sex is unknown or if thepatient's age is <18 years. [Automated message] The system which generated this result transmitted reference range: >=60. The reference range was not used to interpret this result as normal/abnormal. CREATININE (test code = CREAT) 0.80 mg/dL 0.55-1.02 N Note change in reference range due to change in reagent. BUN/CREATININE RATIO (test code = BUN/CREA) 15.3 10-20 N CALCIUM (test code = CA) 9.1 mg/dL 8.5-10.1 N HEPATIC FUNCTION [id number] 21:07:00* Test Item Value Reference Range Interpretation Comme nts TOTAL PROTEIN (test code = PROT) 7.3 gram/dL 6.4-8.2 N ALBUMIN (test code = ALB) 3.9 g/dL 3.4-5.0 N GLOBULIN (test code = GLOB) 3.4 gram/dL 2.7-4.2 N ALBUMIN/GLOBULIN RATIO (test code = A/G) 1.1 0.75-1.50 N BILIRUBIN TOTAL (test code = BILT) 0.30 mg/dL 0.0-1.0 N BILIRUBIN DIRECT (test code = BILD) 0.10 mg/dL 0.0-0.20 N SGOT/AST (test code = AST) 22 IUnit/L 15-37 N SGPT/ALT (test code = ALT) 26 IUnit/L 12-78 N ALKALINE PHOSPHATASE TOTAL (test code = ALKP) 162 IUnit/L 45-117 H Note change in reference range due to change in reagent. [id number] 21:07:00* Test Item Value Reference Range Interpretation Comme nts LIPASE (test code = LIP) 30 U/L 12.00-57.00 N URINALYSIS [id number] 20:55:00* Test Item Value Reference Range Interpretation Comme nts UA COLOR (test code = COLU) Light-Yellow YELLOW UA APPEARANCE (test code = APPU) CLEAR CLEAR IS THE SAMPLE FROM ER OR L&D?Y IF THE ANSWER IS NO,PLEASE DOCUMENT TWO RN SIGNATURES HERE- by [id number] 02/17/232054 UA GLUCOSE DIPSTICK (test code = DGLUU) NEGATIVE mg/dL NEGATIVE UA BILIRUBIN DIPSTICK (test code = BILU) NEGATIVE mg/dL NEGATIVE UA KETONE DIPSTICK (test code = KETU) NEGATIVE mg/dL NEGATIVE UA SPECIFIC GRAVITY (test code = SGU) 1.020 1.001-1.035 UA BLOOD DIPSTICK (test code = AMOR) Negative mg/dL NEGATIVE UA PH DIPSTICK (test code = MONSE) 6.0 5.0-8.0 UA PROTEIN DIPSTICK (test code = PROU) NEGATIVE mg/dL NEGATIVE UA UROBILINIOGEN DIPSTICK (test code = URO) Normal mg/dL NEGATIVE UA NITRITE DIPSTICK (test code = WOJCIECH) NEGATIVE NEGATIVE UA LEUKOCYTE ESTERASE W REFLEX (test code = LEUUR) NEGATIVE Deena/uL NEGATIVE UA WBC (test code = WBCU) 0-5 per HPF 0-5 UA RBC (test code = RBCU) 0-2 #/HPF 0-5 UA EPITHELIAL CELLS (test code = EPIU) MOD per HPF FEW UA BACTERIA (test code = BACU) FEW #/HPF NONE A Urine Source? Clean CatchCBC W/O [id number] 20:44:00* Test Item Value Reference Range Interpretation Comme nts WHITE BLOOD CELL (test code = WBC) 10.0 K/mm3 4.5-12.5 N RED BLOOD CELL (test code = RBC) 4.16 mill/mm3 3.7-5.2 N HEMOGLOBIN (test code = HGB) 12.2 gram/dL 11.5-15.5 N HEMATOCRIT (test code = HCT) 37.3 % 36.0-46.0 N MEAN CELL VOLUME (test code = MCV) 89.7 fL 80-98 N MEAN CELL HGB (test code = MCH) 29.3 picogram 27.0-33.0 N MEAN CELL HGB CONCETRATION (test code = MCHC) 32.7 gram/dL 33.0-36.0 L RED CELL DISTRIBUTION WIDTH (test code = RDW) 12.7 % 11.6-16.2 N PLATELET COUNT (test code = PLT) 259 K/mm3 150-450 N MEAN PLATELET VOLUME (test c ode = MPV) 9.0 fL 6.7-11.0 N - ABDOMEN [id number] 20:42:00 [facility])Name: HAN ZAPATA : 2000 Sex: F Name: HAN ZAPATA [facility] : 2000 Age/S: 22 / F [address] Unit #: [id number] Loc: KRZ[place] [address] Phys: Wong Murry MD Acct: [id number] Dis Date: Status: REG ER PHONE #: [phone] Exam Date: 02/17/20232008 FAX #: [phone] Reason: AbdominalPain EXAMS: CPT CODE: [id number] ABDOMEN LTD 29984 REASON FOR EXAM: Abdominal Pain EXAM ORDER DATE: 02/17/2023 7:36 PM Attending MSri: Wong Murry MD PROCEDURE: - US ABDOMEN LTD Technique: Grayscale and color Doppler images of the right-upper quadrant of the abdomen. Comparison: None FINDINGS: Aorta and IVC: Patent and grossly normal in caliber. Liver: Size: 15.5 cm craniocaudally Parenchyma and contour: Smooth contour. Normal echogenicity. Cysts and/or masses: None. Intrahepatic bile ducts: No intrahepatic biliary ductal dilation Common bile duct: 2.5 mm in diameter. No echogenic fillingdefects in visualized duct. Gallbladder: Stones/sludge: Gallstones Wall: 1.3 mm in thickness. No discontinuity. No polyps. No pericholecystic fluid. No hyperemia. Sonographic Galindo's sign: Negative Portal vein: Portal vein caliber is within normal limits. Portal vein is patent with hepatopetal flow. Pancreas: Incompletely visualized. However the visualized portions are grossly within normal limits. Right kidney: parenchyma echogenicity: Normal echogenicity size: 11.4 x 5.1 x 4.6 cm stones: none cysts/masses: none PAGE 1 Signed Report (CONTINUED) Name: HAN ZAPATA [facility] : 2000 Age/S: 22 / F [address] [facility] Unit #: [id number] Loc: [place] [address] Phys: Wong Murry MD Acct: [id number] Dis Date: Status: REG ER PHONE #: [phone] Exam Date: 02/17/20232008 FAX #: [phone] Reason: Abdominal Pain EXAMS: CPT CODE: [id number] US ABDOMEN LTD 42294 (Continued) hydronephrosis: none Ascites/pleural effusions: None IMPRESSION: Cholelithiasis. Location: [facility] at 2041 Reported and signed by: Balaji Dickson M.D. CC: Wong Murry MD Technologist: Ama Perdue [facility] Trnscb Date/Time: 02/17/2023 (2041) [id number] Orig Print D/T: S: 02/17/2023 (2044) Probe: PAGE 2 Signed ReportPOCT GLUCOSE (AUTOMATED)2023-02-15 16:23:16* Test Item Value Reference Range Interpretation Comme [facility] POCT GLU (test code = 5083529395) 86 mg/dL 70-110 Lab Interpretation (test cod e = 89770-9) Normal [facility]2023-02-15 16:23:16* Test Item Value Reference Range Interpretation Comme [facility] POCT GLU (test code = 6349196938) 86 mg/dL 70-110 Lab Interpretation (test cod e = 12889-5) Normal [facility]PT2023-[facility]-27 01:16:42* Test Item Value Reference Range Interpretation Comme [facility] RADRPT (test code = RADRPT) PROCEDURE INFORMATION: Exam: US Abdomen; Limited Exam date and time: 02/12/2023 7:09 PM Age: 22 years old Clinical indication: /gallbladder TECHNIQUE: Imaging protocol: Real time ultrasound of the abdomen with image documentation. Limited exam focused on the region of clinical interest. COMPARISON: No relevant prior studies available. FINDINGS: Gallbladder: Multiple layering gallstones are seen, without specific findings to suggest acute cholecystitis. Common bile duct measures 5 mm.IMPRESSION: Cholelithiasis Stu Bangura MD On 02/12/2023 20:15:54; [id number] [facility] AND [id number] 22:20:00* Test Item Value Reference Range Interpretation Comme nts UA Turbidity (test code = UA Turbidity) Clear (02/12/23 5:20 PM) UA Spec Grav (test code = UA Spec Grav) 1.003 1 UA pH (test code = UA pH) 6.0 1 5.0-8.0 UA Protein (test code = UA Protein) Negative mg/dL UA Glucose (test code = UA Glucose) Negative mg/dL UA Ketones (test code = UA Ketones) Negative mg/dL UA Bili (test code = UA Bili) Negative *NA*(02/12/23 5:20 PM) UA Blood (test code = UA Blood) Small *ABN*(02/12/23 5:20 PM) UA Nitrite (test code = UA Nitrite) Negative (02/12/23 5:20 PM) UA Leuk Est (test code = UA Leuk Est) Negative (02/12/23 5:20 PM) UA Ascorbic Acid (test code = UA Ascorbic Acid) Negative 3*NA*(02/12/23 5:20 PM) UA Sq Epi (test code = UA Sq Epi) Few /LPF UA WBC (test code = UA WBC) no gt <=5 UA Color (test code = UA Color) Colorless UA Urobilinogen (test code = UA Urobilinogen) <=1.0 mg/dL 0.1-1.0 [id number] 22:17:00* Test Item Value Reference Range Interpretation Comme nts Glucose Lvl (test code = Glucose Lvl) 82 70-99 BUN (test code = BUN) 10 7-22 Creatinine Lvl (test code = Creatinine Lvl) 0.79 0.50-1.40 Sodium Lvl (test code = Sodium Lvl) 137 135-145 Potassium Lvl (test code = Potassium Lvl) 3.1 3.5-5.1 Chloride Lvl (test code = Chloride Lvl) 107 95-109 CO2 (test code = CO2) 26 24-32 Calcium Lvl (test code = Calcium Lvl) 8.5 8.5-10.5 Total Protein (test code = Total Protein) 8.0 6.4-8.4 Albumin Lvl (test code = Albumin Lvl) 3.7 3.5-5.0 ALT (test code = ALT) 22 <=65 AST (test code = AST) 12 <=37 Alk Phos (test code = Alk Phos) 172 39-136 Bili Total (test code = Bili Total) 0.6 0.2-1.3 AGAP (test code = AGAP) 7.1 10.0-20.0 B/C Ratio (test code = B/C Ratio) 13 1 6-25 Globulin (test code = Globulin) 4.3 2.7-4.2 A/G Ratio (test code = A/G Ratio) 0.9 1 0.7-1.6 eGFR (test code = eGFR) 109 Lipase Lvl (test code = Lipase Lvl) 22 13-77 S Preg (test code = S Preg) Negative *NA*(02/12/23 5:17 PM) [facility]AXJ6568-90-82 22:17:00* Test Item Value Reference Range Interpretation Comme nts WBC (test code = WBC) 7.1 3.7-10.4 RBC (test code = RBC) 3.97 4.20-5.40 Hgb (test code = Hgb) 11.7 12.0-16.0 Hct (test code = Hct) 34.9 36.0-48.0 MCV (test code = MCV) 88.0 80.0-98.0 MCH (test code = MCH) 29.4 pg 27.0-31.0 MCHC (test code = MCHC) 33.4 32.0-36.0 RDW (test code = RDW) 13.5 11.5-14.5 Platelet (test code = Platelet) 272 133-450 MPV (test code = MPV) 7.5 7.4-10.4 Segs (test code = Segs) 65.3 45.0-75.0 Lymphocytes (test code = Lymphocytes) 23.5 20.0-40.0 Monocytes (test code = Monocytes) 9.5 2.0-12.0 Eosinophils (test code = Eosinophils) 1.2 <=4.0 Basophils (test code = Basophils) 0.5 <=1.0 Neutrophils # (test code = Neutrophils #) 4.6 1.5-8.1 Lymphocytes # (test code = Lymphocytes #) 1.7 1.0-5.5 Monocytes # (test code = Monocytes #) 0.7 <=0.8 Eosinophils # (test code = Eosinophils #) 0.1 <=0.5 [facility] [id number] 20:21:00* Test Item Value Reference Range Interpretation Comme [facility] POCT PREG (test code = 1605) Negative On board controls acceptable with C Line (test code = 3574) Yes POCT PREG LOT # (test code = 3575) POCT PREG TEST DATE ( test code = 3576) [facility] [id number] 20:21:00* Test Item Value Reference Range Interpretation Comme [facility] POCT PREG (test code = 1605) Negative On board controls acceptable with C Line (test code = 3574) Yes POCT PREG LOT # (test code = 3575) POCT PREG TEST DATE ( test code = 3576) [facility] [id number] 20:45:06* Test Item Value Reference Range Interpretation Comme nts RHIG CANDIDATE? (test code = 5055) No- see comment Patient is not a candidate for RhIg- Patient is Rh Positive.Performed at [facility] Laboratory Services - [facility] Blood [address] [place] [address] Free: [phone] No. [id number] [facility] and Screen - ONCE [id number] 10:54:34 * Test Item Value Reference Range Interpretation Comme [facility] ABO & RH (test code = 20) O Positive Performed at [facility] Laboratory Services - [facility] Blood [address] [place] [address] Free: [phone] No. [id number] IAT (test code = 1185) Negative Performed at [facility] Laboratory Services - [facility] Blood [address] [place] [address] Free: [phone] No. [id number] [facility]INAL[facility] W/O SPECIFIC [id number] 16:01:00* Test Item Value Reference Range Interpretation Comme nts POCT PH U (test code = 3254) n/a 5-8 POCT U LEUK EST (test code = 3263) n/a Negative - Negative POCT U NIT (test code = 3262) n/a Negative - Negati ve POCT U PROT (test code = 3259) negative Negative - Negat lissette POCT U GLU (test code = 3256) negative Negative - Negati ve POCT U KETONE (test code = 3258) n/a Negative - Neg ative POCT U BLD (test code = 3257) n/a Negative - Negati ve [facility] W/O SPECIFIC [id number] 20:04:00* Test Item Value Reference Range Interpretation Comme nts POCT PH U (test code = 3254) n/a 5-8 POCT U LEUK EST (test code = 3263) n/a Negative - Negative POCT U NIT (test code = 3262) n/a Negative - Negati ve POCT U PROT (test code = 3259) trace Negative - Negat lissette POCT U GLU (test code = 3256) negative Negative - Negati ve POCT U KETONE (test code = 3258) n/a Negative - Neg ative POCT U BLD (test code = 3257) n/a Negative - Negati ve [facility] URINALYSIS W/O SPECIFIC [id number] 16:36:00* Test Item Value Reference Range Interpretation Comme nts POCT PH U (test code = 3254) n/a 5-8 POCT U LEUK EST (test code = 3263) n/a Negative - Negative POCT U NIT (test code = 3262) n/a Negative - Negati ve POCT U PROT (test code = 3259) negative Negative - Negat lissette POCT U GLU (test code = 3256) negative Negative - Negati ve POCT U KETONE (test code = 3258) n/a Negative - Neg ative POCT U BLD (test code = 3257) n/a Negative - Negati ve [facility] URINALYSIS W/O SPECIFIC [id number] 16:36:00* Test Item Value Reference Range Interpretation Comme nts POCT PH U (test code = 3254) n/a 5-8 POCT U LEUK EST (test code = 3263) n/a Negative - Negative POCT U NIT (test code = 3262) n/a Negative - Negati ve POCT U PROT (test code = 3259) negative Negative - Negat lissette POCT U GLU (test code = 3256) negative Negative - Negati ve POCT U KETONE (test code = 3258) n/a Negative - Neg ative POCT U BLD (test code = 3257) n/a Negative - Negati ve [facility] URINALYSIS W/O SPECIFIC [id number] 17:21:00* Test Item Value Reference Range Interpretation Comme nts POCT PH U (test code = 3254) N/A 5-8 POCT U LEUK EST (test code = 3263) N/A Negative - Negative POCT U NIT (test code = 3262) N/A Negative - Negati ve POCT U PROT (test code = 3259) Negative Negative - Negat lissette POCT U GLU (test code = 3256) Negative Negative - Negati ve POCT U KETONE (test code = 3258) N/A Negative - Neg ative POCT U BLD (test code = 3257) N/A Negative - Negati ve [facility] URINALYSIS W/O SPECIFIC [id number] 17:21:00* Test Item Value Reference Range Interpretation Comme nts POCT PH U (test code = 3254) N/A 5-8 POCT U LEUK EST (test code = 3263) N/A Negative - Negative POCT U NIT (test code = 3262) N/A Negative - Negati ve POCT U PROT (test code = 3259) Negative Negative - Negat lissette POCT U GLU (test code = 3256) Negative Negative - Negati ve POCT U KETONE (test code = 3258) N/A Negative - Neg ative POCT U BLD (test code = 3257) N/A Negative - Negati ve [facility] URINALYSIS W/O SPECIFIC [id number] 15:12:00* Test Item Value Reference Range Interpretation Comme nts POCT PH U (test code = 3254) n/a 5-8 POCT U LEUK EST (test code = 3263) n/a Negative - Negative POCT U NIT (test code = 3262) n/a Negative - Negati ve POCT U PROT (test code = 3259) negative Negative - Negat lissette POCT U GLU (test code = 3256) negative Negative - Negati ve POCT U KETONE (test code = 3258) n/a Negative - Neg ative POCT U BLD (test code = 3257) n/a Negative - Negati ve [facility] URINALYSIS W/O SPECIFIC [id number] 21:39:00* Test Item Value Reference Range Interpretation Comme nts POCT PH U (test code = 3254) n/a 5-8 POCT U LEUK EST (test code = 3263) n/a Negative - Negative POCT U NIT (test code = 3262) n/a Negative - Negati ve POCT U PROT (test code = 3259) negative Negative - Negat lissette POCT U GLU (test code = 3256) negative Negative - Negati ve POCT U KETONE (test code = 3258) n/a Negative - Neg ative POCT U BLD (test code = 3257) n/a Negative - Negati ve [facility], BLOOD [id number] 08:26:24 * Test Item Value Reference Range Interpretation Comme nts ABO & RH (test code = 20) O POSITIVE Performed at [facility] [place] [address]Toll Free: [phone] No. [id number] IAT (test code = 1185) Negative Performed at [place] [address]Toll Free: [phone] No. [id number] [facility], BLOOD [id number] 08:26:24 * Test Item Value Reference Range Interpretation Comme nts ABO & RH (test code = 20) O POSITIVE Performed at [facility] - [address] [address]Zzvt Free: [phone] No. [id number] IAT (test code = 1185) Negative Performed at [facility] [address] [address]Ygsd Free: [phone] No. [id number] [facility], BLOOD [id number] 08:26:24 * Test Item Value Reference Range Interpretation Comme nts ABO & RH (test code = 20) O POSITIVE Performed at [facility] - [address] [address]Kgyh Free: [phone] No. [id number] IAT (test code = 1185) Negative Performed at [facility] - [address] [address]Akgj Free: [phone] No. [id number] [facility] URINALYSIS W/O SPECIFIC [id number] 19:33:00* Test Item Value Reference Range Interpretation Comme nts POCT PH U (test code = 3254) n/a 5-8 POCT U LEUK EST (test code = 3263) n/a Negative - Negative POCT U NIT (test code = 3262) n/a Negative - Negati ve POCT U PROT (test code = 3259) negative Negative - Negat lissette POCT U GLU (test code = 3256) negative Negative - Negati ve POCT U KETONE (test code = 3258) n/a Negative - Neg ative POCT U BLD (test code = 3257) n/a Negative - Negati ve [facility] URINALYSIS W/O SPECIFIC [id number] 19:33:00* Test Item Value Reference Range Interpretation Comme nts POCT PH U (test code = 3254) n/a 5-8 POCT U LEUK EST (test code = 3263) n/a Negative - Negative POCT U NIT (test code = 3262) n/a Negative - Negati ve POCT U PROT (test code = 3259) negative Negative - Negat lissette POCT U GLU (test code = 3256) negative Negative - Negati ve POCT U KETONE (test code = 3258) n/a Negative - Neg ative POCT U BLD (test code = 3257) n/a Negative - Negati ve [facility] URINALYSIS W/O SPECIFIC [id number] 19:33:00* Test Item Value Reference Range Interpretation Comme nts POCT PH U (test code = 3254) n/a 5-8 POCT U LEUK EST (test code = 3263) n/a Negative - Negative POCT U NIT (test code = 3262) n/a Negative - Negati ve POCT U PROT (test code = 3259) negative Negative - Negat lissette POCT U GLU (test code = 3256) negative Negative - Negati ve POCT U KETONE (test code = 3258) n/a Negative - Neg ative POCT U BLD (test code = 3257) n/a Negative - Negati ve [facility] URINALYSIS W/O SPECIFIC [id number] 20:54:00* Test Item Value Reference Range Interpretation Comme nts POCT PH U (test code = 3254) n/a 5-8 POCT U LEUK EST (test code = 3263) n/a Negative - Negative POCT U NIT (test code = 3262) n/a Negative - Negati ve POCT U PROT (test code = 3259) negative Negative - Negat lissette POCT U GLU (test code = 3256) negative Negative - Negati ve POCT U KETONE (test code = 3258) n/a Negative - Neg ative POCT U BLD (test code = 3257) n/a Negative - Negati ve [facility], [id number] 01:11:00 Abdomen limited area? Add comment if clarification is needed.->Right upper quadrantReason for exam:->ABDOMINAL PAIN - upper abdomen, RUQ tendernssFINAL REPORT EXAMINATION: RIGHT UPPER QUADRANT ABDOMINAL ULTRASOUND CLINICAL INDICATION: Right upper quadrant abdominal pain. FINDINGS: The liver measures 15 [...] by overlying bowel gas. No evidence of in tra-abdominal free fluid or right-sided pleural effusion. Visualized segments of the main portal vein, IVC, hepatic veins and aorta were unremarkable. IMPRESSION: Mild heterogeneity of the right renal cortex, etiology and clinical significance indeterminate. Correlation with patient's renal function and clinical presentation recommended. Gallbladder is mildly decompressed. No definite sonographicevidence of cholecystitis, cholelithiasis or biliary obstruction. Pancreas obscured by overlying bowel gas. Results discussed with Dr. Reinoso. Signed: Greg Horner MDReport Verified Date/Time: 07/16/2017 01:11:12 Reading Location: [address] Reading Room HEPATIC FUNCTION PANEL 2017-07-15 23:58:00* Test Item Value Reference Range Interpretation Comme nts TOTAL PROTEIN (BEAKER) (test code = 770) 8.4 gm/dL 6.0-8.5 ALBUMIN (BEAKER) (test code = 1145) 4.6 g/dL 3.5-5.0 BILIRUBIN TOTAL (BEAKER) (te st code = 377) 0.4 mg/dL 0.1-1.2 BILIRUBIN DIRECT (BEAKER) (t est code = 706) 0.4 mg/dL 0.0-0.4 ALKALINE PHOSPHATASE (BEAKER ) (test code = 346) 137 U/L 100-320 AST (SGOT) (BEAKER) (test co de = 353) 21 U/L 5-40 ALT (SGPT) (BEAKER) (test co de = 347) 20 U/L 5-50 CBC W/PLT COUNT & AUTO [id number] 22:42:00* Test Item Value Reference Range Interpretation Comme nts WHITE BLOOD CELL COUNT (BEAK ER) (test code = 775) 13.5 10e3/ L 4.5-13.5 RED BLOOD CELL COUNT (BEAKER ) (test code = 761) 4.22 10e6/ L 4.00-5.00 HEMOGLOBIN (BEAKER) (test co de = 410) 12.7 g/dL 12.0-15.0 HEMATOCRIT (BEAKER) (test co de = 411) 37.7 % 36.0-45.0 MEAN CORPUSCULAR VOLUME (SKIP KER) (test code = 753) 89.3 fL 82.0-99.0 MEAN CORPUSCULAR HEMOGLOBIN (BEAKER) (test code = 751) 30.1 pg 27.0-33.0 MEAN CORPUSCULAR HEMOGLOBIN CONC (BEAKER) (test code = 752) 33.7 g/dL 32.0-36.0 RED CELL DISTRIBUTION WIDTH (BEAKER) (test code = 412) 11.2 % 10.3-14.2 PLATELET COUNT (BEAKER) (nanette t code = 756) 338 10e3/ L 150-430 MEAN PLATELET VOLUME (BEAKER ) (test code = 754) 6.9 fL 6.5-10.5 NEUTROPHILS RELATIVE PERCENT (BEAKER) (test code = 429) 63 % LYMPHOCYTES RELATIVE PERCENT (BEAKER) (test code = 430) 25 % MONOCYTES RELATIVE PERCENT (BEAKER) (test code = 431) 10 % EOSINOPHILS RELATIVE PERCENT (BEAKER) (test code = 432) 2 % BASOPHILS RELATIVE PERCENT (BEAKER) (test code = 437) 1 % NEUTROPHILS ABSOLUTE COUNT (BEAKER) (test code = 670) 8.47 10e3/ L 1.50-10.30 LYMPHOCYTES ABSOLUTE COUNT (BEAKER) (test code = 414) 3.31 10e3/ L 0.70-7.40 MONOCYTES ABSOLUTE COUNT (BEAKER) (test code = 415) 1.34 10e3/ L 0.00-0.50 H EOSINOPHILS ABSOLUTE COUNT (BEAKER) (test code = 416) 0.26 10e3/ L 0.00-0.40 BASOPHILS ABSOLUTE COUNT (BEAKER) (test code = 417) 0.14 10e3/ L 0.00-0.10 H BASIC METABOLIC [id number] 22:41:00* Test Item Value Reference Range Interpretation Comme nts SODIUM (BEAKER) (test code = 381) 142 meq/L 135-148 POTASSIUM (BEAKER) (test code = 379) 4.2 meq/L 3.6-5.5 CHLORIDE (BEAKER) (test code = 382) 103 meq/L 98-106 CO2 (BEAKER) (test code = 355) 30 meq/L 24-32 BLOOD UREA NITROGEN (BEAKER) (test code = 354) 10 mg/dL 10-26 CREATININE (BEAKER) (test code = 358) 0.80 mg/dL 0.50-1.20 GLUCOSE RANDOM (BEAKER) (test code = 652) 109 mg/dL 70-110 CALCIUM (BEAKER) (test code = 697) 9.5 mg/dL 8.5-10.5 EGFR (BEAKER) (test code = 1092) mL/min/1.73 sq m ESTIMATED GFR NOT VALIDATED FOR AGE <18 YEARS. [id number] 22:40:00* Test Item Value Reference Range Interpretation Comme nts AMYLASE (BEAKER) (test code = 349) 65 U/L 30-110 [id number] 22:40:00* Test Item Value Reference Range Interpretation Comme nts LIPASE (BEAKER) (test code = 749) 97 U/L 40-240 URINALYSIS W/ [id number] 22:36:00* Test Item Value Reference Range Interpretation Comme nts COLOR (BEAKER) (test code = 470) Light Yellow CLARITY (BEAKER) (test code = 469) Slightly Cloudy SPECIFIC GRAVITY UA (BEAKER) (test code = 468) 1.010 1.001-1.035 PH UA (BEAKER) (test code = 467) 6.0 5.0-8.0 PROTEIN UA (BEAKER) (test code = 464) Negative Negative GLUCOSE UA (BEAKER) (test code = 365) Negative Negative KETONES UA (BEAKER) (test code = 371) Negative Negative BILIRUBIN UA (BEAKER) (test code = 462) Negative Negative BLOOD UA (BEAKER) (test code = 461) Moderate Negative A NITRITE UA (BEAKER) (test code = 465) Negative Negative LEUKOCYTE ESTERASE UA (BEAKER) (test code = 466) Small Negative A UROBILINOGEN UA (BEAKER) (test code = 463) 0.2 mg/dL 0.2-1.0 BACTERIA (BEAKER) (test code = 517) Few YEAST (BEAKER) (test code = 1585) Occasional RBC UA-MANUAL (BEAKER) (test code = 1659) 5-10 /HPF WBC UA-MANUAL (BEAKER) (test code = 1661) 5-10 /HPF SQUAMOUS EPITHELIAL MANUAL (BEAKER) (test code = 1663) 5-10 /HPF Occasional CL UE CELLS seen. SOURCE(BEAKER) (test code = 2795) SCREEN, [id number] 22:23:00* Test Item Value Reference Range Interpretation Comme nts TEST URINE (BEAKER ) (test code = 583) Negative History and Physical Notes Date/Time Note Provider Source 2023-05-22 21:47:00 Connor Yip MD: PERFORM, MODIFY, MODIFYEvent Display: History and PhysicalAuthored Date: [id number] and Physical Primary Team Name:Team Contact Info:PCP Contact info:Family contact info: Code Status: None Specified=FULL CODE Chief Complaint: c/o dizziness, seeing spots, right breast pain x1 day, vomiting pmh dm History of Present Illness: Patient is a 23 year old female with PMH of DM2 and as listed who presented to the ER for right breast pain for 2-3 days. Patient notes her daughter had gotten RSV virus and she stopped breast-feeding her for couple days. She started noticing pain in the right breast for the last 2 to 3 days. This pain slowly worsened. She also noticed some redness and firmness in the breast. She endorsed having severe lightheadedness, chills and vomiting episode yesterday. She denied fevers, chest pain or SOB. She could not tolerate further thus came to the ER. In ER, BP on arrival was systolic of 75. In ER, abs significant for WBC 21.2, Lactic acid 2.6, and Procalcitonin 3.89. Right Breast US did not show any abnormalities. Patient was given fluids in ER with improvement in blood pressure. Patient was then admitted for further evaluation and intervention. Review of Systems: Constitutional: Negative except as documented in history of present illness, + fatigue. Eye: Negative except as documented in history of present illness, No Blurring, No icterus. Ear/Nose/Mouth/Throat: Negative except as documented in history of present illness, No nasal congestion. Respiratory: Negative except as documented in history of present illness, No shortness of breath, No cough. Cardiovascular: Negative except as documented in history of present illness, No chest pain, No palpitations. Gastrointestinal: Negative except as documented in history of present illness, +vomiting, No diarrhea, No abdominal pain. Genitourinary: Negative except as documented in history of present illness, No dysuria. Hematology/Lymphatics: Negative except as documented in history of present illness. Endocrine: Negative except as documented in history of present illness. Immunologic: Negative except as documented in history of present illness, No recurrent infections. Musculoskeletal: Negative except as documented in history of present illness, No back pain. Integumentary: Negative except as documented in history of present illness, +breast redness and pain, No rash. Neurologic: Negative except as documented in history of present illness, No numbness, No tingling. Psychiatric: Negative except as documented in history of present illness, No anxiety, ROS reviewed as documented in chart Problem List/Past Medical History: Ongoing Diabetes Procedure/Surgical History: Cholecystectomy Family History: Type 2 diabetes mellitus: Grandparent. Social History: Alcohol Never Electronic Cigarette/Vaping Electronic Cigarette Use: Never. Substance Abuse Use: None. Tobacco Use: Never smoker. Tobacco smoke exposure: None. Did the Patient Smoke Cigarettes Anytime During the Last 365 Days? No. Cessation Counseling Provided? No. Allergies: No Known Allergies Home Medications: Bentyl 20 mg oral tablet, 20 mg= 1 tab, PO, QID-Before Meals Physical Exam: Vitals and Measurements T: 97.9 F (Oral) HR: 85 (Apical) RR: 20 BP: 134/78 SpO2: 96% WT: 86.364 kg BMI: 31.68 General: alert and oriented x 4; mild distressHEENT: extraocular movements intact; oropharynx clear; moist mucous membranes, normocephalic atraumaticNeck: supple, Lungs: clear to auscultation bilaterally, no increased work of breathingCardio: regular rate and rhythmBreast: Right Breast TTP and erythematous with swelling. No nipple discharge seenAbdomen: soft; non-tender; non-distended; +bowel soundsGU: DeferredRectal: DeferredExtremities: no clubbing, cyanosis, or edemaSkin: no rashes, no skin lesions in arms or legs.Neuro: cranial nerves II through XII grossly intact; sensation grossly intact; muscle strength 5 out of 5 in all four extremities, no focal deficits [facility] director of outreach during Breast Exam Pertinent Labs: LabsA/G Ratio: 1 (05/19/23 12:00:00)AGAP: 11.4 mEq/L (05/19/23 12:00:00)Albumin Lvl: 3.8 g/dL (05/19/23 12:00:00)Alk Phos: 169 unit/L High (05/19/23 12:00:00)ALT: 22 unit/L (05/19/23 12:00:00)AST: 14 unit/L (05/19/23 12:00:00)B/C Ratio: 15 (05/19/23 12:00:00)Basophils: 0.2 % (05/19/23 12:00:00)BE Josse: -2 mMol/L (05/19/23 12:00:00)Bili Total: 1.5 mg/dL High (05/19/23 12:00:00)BUN: 19 mg/dL (05/19/23 12:00:00)Calcium Lvl: 9.1 mg/dL (05/19/23 12:00:00)Chloride Lvl: 108 mEq/L (05/19/23 12:00:00)CO2: 24 mEq/L (05/19/23 12:00:00)Creatinine Lvl: 1.28 mg/dL (05/19/23 12:00:00)eGFR: 61 mL/min/1.73m2 (05/19/23 12:00:00)Eosinophils: 0.1 % (05/19/23 12:00:00)Globulin: 3.7 g/dL (05/19/23 12:00:00)Glucose Lvl: 128 mg/dL High (05/19/23 12:00:00)HCO3 Josse: 23 mMol/L (05/19/23 12:00:00)Hct: 37 % (05/19/23 12:00:00)Hgb: 12.3 g/dL (05/19/23 12:00:00)Influ A: cNegative (05/19/23 12:00:00)Influ B: cNegative (05/19/23 12:00:00)Ketone Quantitative: 0.1 mmol/L (05/19/23 11:57:00)Lactic Acid Lvl: 1.6 mMol/L (05/19/23 16:04:00)Lymphocytes: 7.7 % Low (05/19/23 12:00:00)Lymphocytes #: 1.6 K/CMM (05/19/23 12:00:00)Magnesium Lvl: 1.7 mg/dL Low (05/19/23 12:00:00)MCH: 29.8 pg (05/19/23 12:00:00)MCHC: 33.1 g/dL (05/19/23 12:00:00)MCV: 89.8 fL (05/19/23 12:00:00)Monocytes: 6.6 % (05/19/23 12:00:00)Monocytes #: 1.4 K/CMM High (05/19/23 12:00:00)MPV: 7.7 fL (05/19/23 12:00:00)Neutrophils #: 18.2 K/CMM High (05/19/23 12:00:00)O2 Sat Josse (calc): 70.4 % High (05/19/23 12:00:00)pCO2 Josse: 42 mmHg (05/19/23 12:00:00)pH Josse: 7.35 (05/19/23 12:00:00)Platelet: 301 K/CMM (05/19/23 12:00:00)pO2 Josse: 39 mmHg (05/19/23 12:00:00)Potassium Lvl: 3.4 mEq/L Low (05/19/23 12:00:00)Procalcitonin Lvl: 3.89 ng/mL Critical (05/19/23 11:57:00)RBC: 4.12 M/CMM Low (05/19/23 12:00:00)RDW: 13.5 % (05/19/23 12:00:00)S Preg: Negative (05/19/23 12:00:00)Segs: 85.4 % High (05/19/23 12:00:00)Sodium Lvl: 140 mEq/L (05/19/23 12:00:00)Temp Josse: 37 DegC (05/19/23 12:00:00)Total Protein: 7.5 g/dL (05/19/23 12:00:00)WBC: 21.3 K/CMM High (05/19/23 12:00:00) Pertinent Imaging: Chest US 05/19/23 13:44:20IMPRESSION:Unremarkable soft tissue. Assessment/Plan: 1. Acute sepsis (A41.9) Ordered: 2. Acute mastitis of right breast (N61.0) Ordered: 3. Acidosis, lactic (E87.20) -IV fluids given in ER , c/w IV fluids-Vanc/Rocephin initiated-ID consulted-Blood cultures obtained-land acquisition specialist consulted to advise regarding medications and counseling on breast feeding-breast US unrevealing-pain meds prn-anti emetics prn -Incentive Spirometry -Reviewed and Ordered Labs-Reviewed Imaging 4. ROCKY (acute kidney injury) (N17.9) 5. Hypomagnesemia (E83.42) 6. Hypokalemia (E87.6) -IV fluids-replace lytes-avoid nephrotoxic agents 7. Elevated LFTs (R79.89) -likely due to sepsis. monitor 8. DM2 (diabetes mellitus, type 2) (E11.9) -SSI+FSBG for now-reconcile home meds Ordered: 9. Class 1 obesity with body mass index (BMI) of 32.0 to 32.9 in adult (E66.9) -advise weight loss changes DVT PPX: Lovenox Patient seen by Connor Yip MD Internal Medicine Hospitalist Connor Yip MDElectronically Signed: 05/19/23 21:59 [facility] 2023-05-22 21:47:00 Connor Yip MD: PERFORMEvent Display: History and PhysicalAuthored Date: [id number].Connor Yip MDElectronically Signed: 05/20/23 10:49 [facility] Notes Date/Time Note Provider Source 2025-01-17 11:29:20 Letter uploaded to pt's [employer]. Pt notified via [employer]. Darlin Gusman RN [facility] 2025-01-17 11:19:28 Copied from [facility] #[id number]. Topic: Clinical - Paperwork/Forms >> Jan 17, 2025 11:17 AM Patient Medical Equipment Repairer wrote: Pt is requesting an excuse uploaded to her [employer] for visit today. Please contact pt at [phone]. Jonathan Whitten [facility] 2025-01-10 13:34:17 SCHEDULED 01/17/25 Erinn Mathews [facility] 2025-01-10 12:15:31 Copied from [facility] #[id number]. Topic: Appointment - Reschedule Appointment >> Jan 10, 2025 12:11 PM Patient Medical Equipment Repairer wrote: Patient called to reschedule appointment. Xena Ham [facility] 2024-12-26 12:27:24 R/S REQUESTED Erinn Mathews [facility] 2024-12-26 10:10:26 Tosha Zapata is a 24 year old female Pt is calling requesting to reschedule her PGY appt scheduled for 01/01/25. Please contact pt at [phone] Matt Wilhelm [facility] 2024-11-27 15:45:00 Images from the original note were not included. Venipuncture collection performed by clean technique on the right anticubitus. Total of 1 attempts were made. Slight pressure and a bandage/dressing were applied to the site(s). The patient experienced no complications. The following specimens were processed according to instructions and sent to [facility] laboratories per lab order on 11/27/2024 : LT BLUE SST 2 RED LAV 1 PPT DK GREEN (LiHep) DK GREEN (SodH) SONG DK BLUE (K2) DK BLUE (S) ACD Blood Culture NIPT/NTD [facility] 2024-11-27 14:30:00 Addended by: COLE DAVIS on: 11/28/2024 02:46 PM Modules accepted: Orders [facility] 2024-11-27 08:40:49 No sooner availability for today Chioma Goncalves [facility] 2024-11-26 13:23:48 Tosha Zapata is a 24 year old female Pt is calling stating they are scheduled for 11/27 but is wanting to know if there is any earlier appt time during the day as they want to be able to pick their kids up from daycare Please advise at [phone] (home) Skip Calhoun [facility] 2024-11-20 10:00:20 Tosha Zapata is a 24 year old female Pt is calling requesting to schedule an appt from referral for N91.1 (ICD-10-CM) - Amenorrhea, secondary Please contact pt at [phone]. Jonathan Whitten [facility] 2024-11-19 12:09:52 Tosha Zapata is a 24 year old female Pt is needing an appt for a PGY for N91.1 (ICD-10-CM) - Amenorrhea, secondary. Andre Inman [facility] 2024-08-16 14:47:39 Called pt, notified we recommend not sex in order to begin control to regulate cycle. Pt states she does not want to start control at all. Informed pt it is her decision if she has intercourse or not. Verbalized understanding. Sherry English LVN 08/16/2024 2:50 PM NG SUPERVISOR Sherry English LVN [facility] 2024-08-16 14:40:46 Tosha Zapata is a 24 year old female is requesting a callback she would like to know if she needs to not have sex while taking Rx. Please call. Thank you. NG SUPERVISOR Xena Ham [facility] 2024-08-16 10:42:38 Called pt, discussed results and poc. Educated on abstinence. Pt verbalized understanding. Mackenzie Mathews RN 08/16/24 10:43 AM NG SUPERVISOR Mackenzie Mathews RN [facility] 2024-08-16 10:16:57 Please notify the patient her labs are wnl, provera has been sent to her pharmacy on file. Please advise her that should begin to bleed within 7 days of completing the last tablet . If bleeding does not start please have her keep her appt for more labs and referral. JUAN Guerin 08/16/2024 10:20 AM [facility] 2024-02-09 17:18:00 Regarding: nexplanon removed 01/24 ----- Message from Diandra Del Rio sent at 02/09/2024 5:04 PM CDT ----- Tosha Zapata is a 23 year old female Patient had Nexplanon removed 01/25/24 stating site is very swollen and painful x 2 weeks knot under skin x 2 weeks Asia Hale RN [facility] 2024-02-09 17:18:00 Nurse's Note: 5:19 PM Tosha Zapata is a 23 year old female. Called patient. "I had my nexplanon removed 3 weeks ago. The area has been swollen and painful and underneath there's a knot." Adult Triage Assessment Last Clinic Visit: 01/25/24 for nexplanon removal Primary Symptom: swelling Onset / Duration: after the first week of the nexplanon removal Location / Description: left arm Pain / Severity: painful x 2 weeks, not constant, when she touches the area or lays on that side pain is 6/10 Associated Symptoms: knot under the incision sit and where the implant was located, warm to touch Fever / Method: denies Hydration: no changes to usual self Treatment so far: ibuprofen 200mg 2 tabs, every 8 hours (does help with the pain) Effect on ADL's: some change when lifting something with that arm LMP: not for the last 2 years Pre-existing condition / Immunocompromised: gall bladder removal 02/2023 Disposition: After assessment and triage, patient advised to see provider within 24 hours. No available appointments noted. Patient informed would send message to clinic for call back tomorrow. Strong ED warnings given for worsening symptoms. Reason for Disposition [1] Implant site looks infected (spreading redness, red streak, pus) AND [2] NO fever Protocols used: Contraception - Implant Symptoms and Qshecyqov-CHNPN-OU Asia Hale RN 02/09/2024 5:29 PM [facility] 2024-02-09 17:18:00 Called pt, appointment scheduled. Mackenzie Mathews RN 02/10/24 7:00 AM T Mackenzie Mathews RN [facility] 2023-08-24 18:28:26 Pt given printed and verbal discharge instructions regarding right elbow pain, encouraged hydration. 0 Prescriptions provided; 2 sent to pharmacy Discussed ibuprofen and to take with food to avoid GI distress. Pt verbalized understanding of instructions, pt awake alert oriented, resp reg unlabored, skin w/d, color appropriate for race, moves all ext well,pt encouraged to follow up with pcp. Advised to seek medical attention for new/prolonged/worsening of symptoms, Symptoms remain the same No adverse reaction to meds given in ER noted upon discharge Awake, alert oriented, resp reg unlabored, skin w/d, pt leaving amb with steady gait, in no apparent distress. NG SUPERVISOR Emilia Tong RN [facility] 2023-08-24 17:31:01 Pt states " last month I got hit in the elbow with a baseball but 2 weeks ago it started going numb." Almonte RN [facility] 2023-08-24 17:20:00 [facility] Emergency Department Note Patient Name: Tosha Zapata Date of : 2000 23 year old female Treatment Room: Room/bed info not found Primary Care Physician: No primary care provider on file. Patient Escorted by: Family [5] Mode of Arrival: Personal means [1] EMS Treatment Prior to ED Arrival: Travel and Exposure Screening: Symptoms Does patient have any of these symptoms?: (not recorded) Exposure Screening Has patient had contact with someone with a communicable disease in the last month?: (not recorded) Diseases exposed to:: (not recorded) Is Patient ?: (not recorded) Exposure Date: (not recorded) Chief Complaint: No chief complaint on file. History of Present Illness: Pt here for right elbow pain, she was playing baseball and her brother pitched a ball right into her right elbow Baseball to elbow 2 weeks ago initially painful then got better now she has pain in hands on thumb and index/ middle finger, pain with palpation proximal lateral to elbow on right side Pain with flexion but full range of motion present No vomiting no head injury no fever chills, pain and tingling to right elbow Past Medical History/Immunizations: Past Medical History: Diagnosis Date Anemia, 07/22/2022 Atypical squamous cells of undetermined significance (ASCUS) on Papanicolaou smear of cervix 08/02/2022 Chlamydia 06/06/2020 Irregular menstrual cycle 02/05/2020 Allergies: Allergies Allergen Reactions Grass Pollen-November Grass Standard Hives Iodine Anaphylaxis, Diarrhea, Dizziness, Hives, Nausea and/or Vomiting and Swelling Past Social History: Tobacco Use Never smoked or used smokeless tobacco. Passive Exposure: Never Vaping Use Never used Alcohol Use Yes. Comments: ocassional Drug Use No. Sexual Activity Sexually active; Partners: Male; Control/Protection: None. Past Surgical History: Past Surgical History: Procedure Laterality Date LAPAROSCOPIC CHOLECYSTECTOMY N/A 03/18/2023 Surgeon: Maricarmen Sweet MD; Location: [facility] [place] Review of Systems: Review of Systems Constitutional: Negative for chills and fatigue. HENT: Negative. Respiratory: Negative. Musculoskeletal: Positive for arthralgias. All other systems reviewed and are negative. Physical Exam: ED Triage Vitals Weight Actual or estimated Height BP Pulse Resp Temp Temp src SpO2 Measured on Physical Exam Vitals and nursing note reviewed. Constitutional: Appearance: She is normal weight. HENT: Head: Normocephalic. Right Ear: External ear normal. Left Ear: External ear normal. Nose: Nose normal. Mouth/Throat: Mouth: Mucous membranes are moist. Eyes: Extraocular Movements: Extraocular movements intact. Pupils: Pupils are equal, round, and reactive to light. Cardiovascular: Rate and Rhythm: Normal rate and regular rhythm. Pulses: Normal pulses. Pulmonary: Effort: Pulmonary effort is normal. Abdominal: General: Abdomen is flat. Palpations: Abdomen is soft. Musculoskeletal: General: Tenderness present. Normal range of motion. Cervical back: Normal range of motion. Skin: General: Skin is warm. Capillary Refill: Capillary refill takes less than 2 seconds. Neurological: General: No focal deficit present. Mental Status: She is alert and oriented to person, place, and time. Motor: No weakness. Gait: Gait normal. Radiology: No orders to display Lab Results: Lab Results - No data to display EKG: If EKG completed, see Procedure Note. Orders and Treatments: No orders of the defined types were placed in this encounter. No orders of the defined types were placed in this encounter. First Provider Eval: ED Events Date/Time Event User Comments 08/24/23 172 Medical Screening Begins RACHEL HERBERT MD -- 08/24/23 172 First Provider Evaluation RACHEL HERBERT MD -- ED COURSE Diagnosis/Impression as of 08/24/23 1808 Right elbow pain Radial nerve palsy, right Procedures: Procedures MDM: Medical Decision Making Pt here for right elbow pain, she was playing baseball and her brother pitched a ball right into her right elbow Baseball to elbow 2 weeks ago initially painful then got better now she has pain in hands on thumb and index/ middle finger, pain with palpation proximal lateral to elbow on right side Pain with flexion but full range of motion present No vomiting no head injury no fever chills, pain and tingling to right elbow Ddx radiculopathy palsy traum afracture contusion Elbow xray done, No fracture She has radial nerve palsy Will rx nsaids and gabapentin and have follow up Problems Addressed: Radial nerve palsy, right: acute illness or injury Details: Xray done, rx for nsaids and gabapentin Amount and/or Complexity of Data Reviewed Radiology: ordered. Details: Xray neg Risk OTC drugs. Prescription drug management. Flowsheet Documentation: Scoring Tools: No data recorded Disposition/Condition: ED Disposition None Discharge Medications: Patient's Medications No medications on file Follow-up: Electronically signed by: Rachel Herbert MD 08/24/231812 [facility] 2023-08-09 11:45:00 Images from the original note were not included. Venipuncture collection performed by clean technique on the left anticubitus. Total of 1 attempts were made. Slight pressure and a bandage/dressing were applied to the site(s). The patient experienced no complications. The following specimens were processed according to instructions and sent to [facility] laboratories per lab order on 08/09/2023 : LT BLUE SST 2 RED 1 LAV PPT DK GREEN (LiHep) DK GREEN (SodH) SONG DK BLUE (K2) DK BLUE (S) ACD Blood Culture NIPT/NTD [facility] 2023-05-22 14:10:00 PROCEDURE INFORMATIO N: Exam: NM Lung Perfusion Exam date and time: 05/22/2023 1:39 PM Age: 23 years old Clinical indication: /elevated dimer, dyspnea, chest pain TECHNIQUE: Imaging protocol: Nuclear pulmonary perfusion imaging was performed. Views: Perfusion acquired with multiple projections. Radiopharmaceutical: 6.6 mCi Tc-99m MAA (Macroaggregated Albumin), IV. COMPARISON: CHEST 1VIEW DX 03/24/2023 5:02 AM FINDINGS: Perfusion: No perfusion defect. IMPRESSION: Normal lung perfusion exam. Davy Keating DO On 05/22/2023 14:37:07; [id number] [facility] 2023-05-22 12:15:00 PROCEDURE INFORMATIO N: Exam: US Duplex Lower Extremity Veins, Bilateral Exam date and time: 05/22/2023 12:20 PM Age: 23 years old Clinical indication: /elevated dimer, dyspnea, chest pain TECHNIQUE: Imaging protocol: Real-time duplex ultrasound of the bilateral extremities with 2-D song scale, color Doppler flow and spectral waveform analysis including responses to compression and other maneuvers (when performed) with image documentation. Complete exam focused on the lower extremity veins. COMPARISON: CT ED Abdomen/Pelvis IV contrast only 03/24/2023 7:19 AM FINDINGS: Right deep veins: Unremarkable. The common femoral, femoral, proximal profunda femoral and popliteal veins are patent without thrombus. Normal Doppler waveforms. Normal compressibility and/or augmentation response. Left deep veins: Unremarkable. The common femoral, femoral, proximal profunda femoral and popliteal veins are patent without thrombus. Normal Doppler waveforms. Normal compressibility and/or augmentation response. Superficial veins: Bilateral saphenofemoral junctions are patent without thrombus. Soft tissues: Unremarkable. IMPRESSION: No evidence of deep vein thrombosis. Shaw Toth MD On 05/22/2023 13:07:11; [id number] [facility] 2023-05-21 17:47:07 PROCEDURE INFORMATIO N: Exam: US Chest, Soft Tissue Exam date and time: 05/21/2023 5:27 PM Age: 23 years old Clinical indication: /mastitis TECHNIQUE: Imaging protocol: Real time ultrasound of the chest was performed with image documentation. Exam focused on the soft tissue. COMPARISON: CHEST US 05/19/2023 1:27 PM FINDINGS: Soft tissues: Soft tissue edema seen. No masses or collections is seen in the area of interest. IMPRESSION: No collection or mass seen in the area of interest. Luis Fernando Perez MD On 05/21/2023 18:47:57; [id number] [facility] 2023-05-19 13:11:00 PROCEDURE INFORMATIO N: Exam: US Chest, Soft Tissue Exam date and time: 05/19/2023 1:07 PM Age: 23 years old Clinical indication: /mastitits, R/O abscess TECHNIQUE: Imaging protocol: Real time ultrasound of the chest was performed with image documentation. Exam focused on the soft tissue. COMPARISON: CHEST 1VIEW DX 03/24/2023 5:02 AM FINDINGS: Soft tissues: Unremarkable. No masses or collections in visualized area. IMPRESSION: Unremarkable soft tissue. Rai Huerta MD On 05/19/2023 13:42:54; [id number] [facility] 2023-03-24 07:09:47 Radiation Dose CTDIV OL = 0 (mGy): DLP = 1963.14 (mGy-cm) PROCEDURE INFORMATION: Exam: CT Abdomen And Pelvis With Contrast Exam date and time: 03/24/2023 7:19 AM Age: 23 years old Clinical indication: /post op pain, recent demario TECHNIQUE: Imaging protocol: Computed tomography of the abdomen and pelvis with contrast. Radiation optimization: All CT scans at this facility use at least one of these dose optimization techniques: automated exposure control; mA and/or kV adjustment per patient size (includes targeted exams where dose is matched to clinical indication); or iterative reconstruction. Contrast material: OMNI 350ML; Contrast volume: 80 ml; Contrast route: INTRAVENOUS (IV); REPORTING DATA: Count of CT and Cardiac NM exams in prior 12 months: This patient has received 0 known CTs and 0 known cardiac nuclear medicine studies in the 12 months prior to the current study. COMPARISON: GALLBLADDER US 02/12/2023 7:09 PM RADIATION DOSE METRICS: Total DLP (mGy-cm): 1963.14 FINDINGS: Lungs: Dependent atelectasis/scarring in the partially imaged lung bases. Liver: Normal. No mass. Gallbladder and bile ducts: Status post cholecystectomy with mild stranding in the gallbladder fossa, expected in postsurgical state. No discrete fluid collection. No biliary ductal dilation. Pancreas: Normal. No ductal dilation. Spleen: Normal. No splenomegaly. Adrenal glands: Normal. No mass. Kidneys and ureters: Normal. No hydronephrosis. Stomach and bowel: Unremarkable. No obstruction. No mucosal thickening. Appendix: No evidence of appendicitis. Intraperitoneal space: Unremarkable. No free air. No significant fluid collection. Vasculature: Unremarkable. No abdominal aortic aneurysm. Lymph nodes: Unremarkable. No enlarged lymph nodes. Urinary bladder: Unremarkable as visualized. Reproductive: Unremarkable as visualized. Bones/joints: Unremarkable. No acute fracture. Soft tissues: Fat containing umbilical hernia. IMPRESSION: No evidence of acute pathology in the abdomen or pelvis. Specifically, no evidence of intra-abdominal abscess, significant fluid collection within the gallbladder fossa or small-bowel obstruction. Jung Mims MD On 03/24/2023 07:43:55; [id number] [facility] 2023-03-24 05:12:10 PROCEDURE INFORMATIO N: Exam: XR Chest Exam date and time: 03/24/2023 5:02 AM Age: 23 years old Clinical indication: /abd pain TECHNIQUE: Imaging protocol: Radiologic exam of the chest. Views: 1 view. COMPARISON: No relevant prior studies available. FINDINGS: Lungs: No focal consolidation. Pleural spaces: Unremarkable. No pleural effusion. No pneumothorax. Heart/Mediastinum: No cardiomegaly. Bones/joints: No acute abnormality. IMPRESSION: No acute findings. Jake Fu MD On 03/24/2023 05:23:39; [id number] [facility] 2023-02-28 15:30:00 Addended by: REKHA BAILEY LVN on: 02/28/2023 04:05 PM Modules accepted: Orders Rekha Bailey LVN [facility] 2023-02-17 19:36:00 [facility] ([facility]) EMERGENCY PROVIDER REPORT REPORT#:[id number] REPORT STATUS: Signed DATE:02/17/23 TIME: 1935 PATIENT: HAN ZAPATA UNIT #: [id number] ROOM/BED: AGE: 22 SEX: F PCP PHYS: No Primary or Family Physician SERVICE AUTHOR: Wong Murry MD * ALL edits or amendments must be made on the electronic/computer document * HPI-Abd Pain F Under 40 General Initial Greet Date/Time 02/17/231930 Presentation Chief Complaint Abdominal pain Sudden in Onset? No Onset Occurred Days ago Symptom Duration Since onset Progression since Onset Unchanged Caused by No trauma by history Location RUQ Quality Same as prior, Aching Radiation Does not radiate. Migration/Movement None Pain/Sev: Onset Mild Pain/Sev: Current Moderate Associated with Reports: Nausea. Denies: Fever, Hematemesis, Hematochezia, Melena. Exacerbated by Eating Relieved by Nothing Free Text HPI Notes Free Text HPI Notes Denies chest pain, tightness, or pressure, sob, lightheadedness, syncope, exertional symptoms, sweating, arm pain, back pain, or jaw pain. Denies fever or bleeding per any orifice. Risk-Abd Pain F Under 40 )( Ectopic Risk factors reviewed Coronary Artery Disease Risk factors reviewed Thoracic Aortic Dissection Risk factors reviewed Review of Systems ROS Statements All systems rev neg except as marked. Focused Review of Systems Respiratory Denies: Cough, non-productive, Cough, productive, Shortness of breath. Cardiovascular Denies: Chest pain, Syncope. Past Medical History - Adult Stated Complaint GALLSTONES Allergies Coded Allergies: No Known Allergies (02/17/23) Review of Nursing Notes Rev avail, and agree Pt reports no significant: Past medical history, Family history, Social history Physical Exam Vital Signs Vital Signs First Documented: Result Date Time Pulse Ox 98 02/17 1957 B/P 124/80 02/17 1957 B/P Mean 94 02/17 1957 O2 Delivery Room air 02/17 1957 Temp 37.7 02/17 1957 Pulse 89 02/17 1957 Resp 18 02/17 1957 Last Documented: Result Date Time Pulse Ox 98 02/17 1957 B/P 124/80 02/17 1957 B/P Mean 94 02/17 1957 O2 Delivery Room air 02/17 1957 Temp 37.7 02/17 1957 Pulse 89 02/17 1957 Resp 18 02/17 1957 Review of Vital Signs Reviewed Focused PE General/Const General/Const Awake, Alert, Well appearing MS Head Head Normocephalic Eyes Eyes PERRL Ears/Nose/Throat Ears/Nose/Throat Airway patent, Mucous membranes moist, Pharynx NL Resp/Chest Respiratory/Chest Breath sounds NL, Breath sounds = bilat, No respiratory distress, No rales, No rhonchi, No wheezing Cardiovascular Cardiovascular Heart rate NL, Regular rhythm, Heart sounds NL, Peripheral circulation NL Abdomen/GI Abdomen/GI Soft, McBurney's non-tender, No guarding, No rebound, BS normoactive, No distention, No hernia, No palpable mass Tenderness/Guarding/Rebound Tender RUQ. Negative: Tender LUQ, Tender RLQ, Tender LLQ, Tender epigastric, Tender periumbilical, Tender suprapubic, Tender diffuse, Tender flank R, Tender flank L, Galindo's sign positive, McBurney's point tender, Guarding voluntary, Guarding involuntary, Rebound localized, Rebound diffuse, Rigid to palpation. MS Back Back Inspection NL, Non-tender, No CVA tenderness Skin Skin Color NL, Warm, Dry, Turgor NL Neurologic Neurologic Oriented X3, Speech NL, No motor deficits, No sensory deficits Interpretation Diagnostics Lab Results Interpretation Results Laboratory Tests 02/17/232020: [Embedded Image Not Available] Laboratory Tests: 02/17 2021 Chemistry Sodium (136 - 145 mmol/L) 138 Potassium (3.5 - 5.1 mmol/L) 3.9 Chloride (98 - 107 mmol/L) 106.0 Carbon Dioxide (21 - 32 mmol/L) 26.0 Anion Gap (10 - 20) 9.9 L BUN (7 - 18 mg/dL) 13 Creatinine (0.55 - 1.02 mg/dL) 0.80 Glomerular Filtr Rate (>=60 mL/min) > 60 BUN/Creatinine Ratio (10 - 20) 15.3 Glucose (74 - 106 mg/dL) 85 Calcium (8.5 - 10.1 mg/dL) 9.1 Total Bilirubin (0.0 - 1.0 mg/dL) 0.30 Direct Bilirubin (0.0 - 0.20 mg/dL) 0.10 AST (15 - 37 IUnit/L) 22 ALT (12 - 78 IUnit/L) 26 Total Alk Phosphatase (45 - 117 IUnit/L) 162 H Total Protein (6.4 - 8.2 gram/dL) 7.3 Albumin (3.4 - 5.0 g/dL) 3.9 Globulin (2.7 - 4.2 gram/dL) 3.4 Albumin/Globulin Ratio (0.75 - 1.50) 1.1 Lipase (12.00 - 57.00 U/L) 30 Serum , Qual (NEGATIVE) NEGATIVE Hematology WBC (4.5 - 12.5 K/mm3) 10.0 RBC (3.7 - 5.2 mill/mm3) 4.16 Hgb (11.5 - 15.5 gram/dL) 12.2 Hct (36.0 - 46.0 %) 37.3 MCV (80 - 98 fL) 89.7 MCH (27.0 - 33.0 picogram) 29.3 MCHC (33.0 - 36.0 gram/dL) 32.7 L RDW (11.6 - 16.2 %) 12.7 Plt Count (150 - 450 K/mm3) 259 MPV (6.7 - 11.0 fL) 9.0 Urines Urine Color (YELLOW) Light-Yellow Urine Appearance (CLEAR) CLEAR Urine pH (5.0 - 8.0) 6.0 Ur Specific Lindley (1.001 - 1.035) 1.020 Urine Protein (NEGATIVE mg/dL) NEGATIVE Urine Glucose (UA) (NEGATIVE mg/dL) NEGATIVE Urine Ketones (NEGATIVE mg/dL) NEGATIVE Urine Blood (NEGATIVE mg/dL) Negative Urine Nitrite (NEGATIVE) NEGATIVE Urine Bilirubin (NEGATIVE mg/dL) NEGATIVE Urine Urobilinogen (NEGATIVE mg/dL) Normal Ur Leukocyte Esterase (NEGATIVE Deena/uL) NEGATIVE Urine RBC (0 - 5 #/HPF) 0-2 Urine WBC (0 - 5 per HPF) 0-5 Ur Epithelial Cells (FEW per HPF) MOD Urine Bacteria (NONE #/HPF) FEW H Recent Impressions: ULTRASOUND - US ABDOMEN LTD 02/18 1948 Report Impression - Status: SIGNED Entered: 02/17/20232044 IMPRESSION: Cholelithiasis. Location: [facility] Impression By: NetoDK - Balaji Dickson M.D. Re-Evaluation MDM Free Text MDM Notes Free Text MDM Notes Differential diagnosis: Ectopic preg ruptured, Ectopic , Intrauterine , Abdominal aortic aneurysm, Acute abdominal pain, Acute coronary symndrome, Angina/SD, Appendicitis, Bowel obstruction, Cervicitis, Cholangitis, Cholecystitis, Cholelithiasis, Diabetic ketoacidosis,, Gastritis, Gastroenteritis, Hepatitis, Inflam bowel disease, , Ischemic bowel, Myocardial infarction, Ovarian cyst, Ovarian torsion, Pancreatitis, Peritonitis, Pyelonephritis, Unstable angina, Urinary tract infection, Urolithiasis, Volvulus )( Re-Evaluation/Progress #1 Text/Dict Note Patient resting comfortably and feels well. Neuro exam including strength, sensation, CN 2-12, cerebellar, gait normal. No chest pain or shortness of breath. Lungs cta bilaterally. Abdomen soft, NTND. Tolerating po intake. Wants to go home. Will f/u with referred doctor and/or return for new/worsening symptoms. Labs independently reviewed and interpreted by me. Time of Re-Eval 2118 )( Re-Eval Status Improved ED Course Medication(s) Ordered Medication(s) Ordered: Central Nervous System Agents Sig/Andrea Start time Last Medication Dose Route Stop Time Status Admin Morphine Sulfate 4 MG X1ED STA 02/18 1936 DC 02/17 IV 02/17 Electrolytic, Caloric, And Silvia Sig/Andrea Start time Last Medication Dose Route Stop Time Status Admin Sodium Chloride 1,000 ML X1ED STA 02/18 1936 DC 02/17 IV 02/17 Gastrointestinal Drugs Sig/Andrea Start time Last Medication Dose Route Stop Time Status Admin Ondansetron HCl 4 MG X1ED PRN PRN 02/17 1945 DC 02/17 IV 2029 Patient Discharge Departure Vital Signs/Condition Vital Signs First Documented: Result Date Time Pulse Ox 98 02/17 1957 B/P 124/80 02/17 1957 B/P Mean 94 02/17 1957 O2 Delivery Room air 02/17 1957 Temp 37.7 02/17 1957 Pulse 89 02/17 1957 Resp 18 02/17 1957 Last Documented: Result Date Time Pulse Ox 98 02/17 1957 B/P 124/80 02/17 1957 B/P Mean 94 02/17 1957 O2 Delivery Room air 02/17 1957 Temp 37.7 02/17 1957 Pulse 89 02/17 1957 Resp 18 02/17 1957 All vital signs available at the time of this entry have been reviewed. Clinical Impression Clinical Impression Primary Impression: Cholelithiasis Disposition Decision Discharge )( Discharged to Home Yes )( Time 2119 )( Date 02/17/23 Discharge/Care Plan Counseled Regarding Diagnosis, Lab results, Imaging studies, Need for follow-up, When to return to ED (Auto) Prescriptions Current Visit Scripts IBUPROFEN (MOTRIN) 600 MG PO QID PRN PRN PAIN IBUPROFEN (MOTRIN) 600 MG PO QID PRN PRN PAIN #30 TABS ONDANSETRON ODT (ZOFRAN ODT) 4 MG PO Q6H PRN PRN NAUSEA/VOMITING ONDANSETRON ODT (ZOFRAN ODT) 4 MG PO Q6H PRN PRN NAUSEA/VOMITING #15 TABS Patient Instructions ED Gallstones with Biliary Colic Referrals Provider Referral: Pacheco Lua MD Address: [address] [place] [address] Provider Referral: Balaji Estes MD Follow-Up: 1-2 Days Address: [address] [place] [address] at [address] RPT #:[id number] END OF REPORT [facility] 2023-02-17 09:47:57 Formatting of this n ote might be different from the original. Please see message below from pharmacy. How many times is pt to check blood sugar? Ashlie Sethi RN Ashlie Sethi RN [facility] 2023-02-16 14:56:26 Formatting of this n ote might be different from the original. Tosha Zapata is a 22 year old female Crystal from pharmacy is calling stating prescriptions need specific directions for insurance purposes. Asking to resend prescriptions with quantity and directions. Please advise Lancets (ACCU-CHEK SOFTCLIX LANCETS) [facility] Blood-Glucose Meter (ACCU-CHEK GUIDE GLUCOSE METER) [facility] blood sugar diagnostic (ACCU-CHEK GUIDE TEST STRIPS) [place], [place] - [facility] [facility] [address] [facility] [id number] Diandra Del Rio [facility] 2023-02-16 12:31:52 Formatting of this n ote might be different from the original. Please advise on how many times a day patient should be checking her glucose levels. Kaley Borrero MA 02/16/2023 12:34 PM Kaley Borrero MA [facility] 2023-02-15 13:58:26 Formatting of this n ote might be different from the original. Tosha Zapata is a 22 year old female Pt is calling to see when her Glucose Monitor RX will be sent to the pharmacy. [address], [address] [address] Lali Ibanez [facility] 2023-02-12 19:00:00 PROCEDURE INFORMATIO N: Exam: US Abdomen; Limited Exam date and time: 02/12/2023 7:09 PM Age: 22 years old Clinical indication: /gallbladder TECHNIQUE: Imaging protocol: Real time ultrasound of the abdomen with image documentation. Limited exam focused on the region of clinical interest. COMPARISON: No relevant prior studies available. FINDINGS: Gallbladder: Multiple layering gallstones are seen, without specific findings to suggest acute cholecystitis. Common bile duct measures 5 mm. IMPRESSION: Cholelithiasis Stu Bangura MD On 02/12/2023 20:15:54; [id number] [facility]
[2025-01-24] MEDS ORDERED: KETOROLAC 30 MG/ML INJ ONE (11:29)
[2025-01-24] MEDS ORDERED: DIPHENHYDRAMINE 50 MG/ML VIAL ONE (11:29)
[2025-01-24] MEDS ORDERED: METOCLOPRAMIDE 10 MG/2mL INJ ONE (11:29)
[2025-01-24] MEDS ORDERED: NA CHLORIDE 0.9% 50 ML ONE (11:30)
[2025-01-24] MEDS ORDERED: NA CHLORIDE 0.9% 1,000 ML ONE (11:30)
--- NOTE | 2025-01-24 11:30 | RAD REPORT ---
EXAM: CT brain without contrast HISTORY: HEADACHE COMPARISON: 08/19/2020 TECHNIQUE: Multiple contiguous axial images were obtained and a CT of the brain without contrast. Sag ittal and coronal reformats were performed. One or more of the following dose reduction techniques were used: Automated exposure control, adjust ment of the mA and/or kV according to patient size, and/or iterative reconstruction. FINDINGS: No evidence of hydrocephalus, intracranial hemorrhage, or extra-axial fluid collection. The brain is normal in morphology. No evidence of midline shift or areas of brain edema. The calvarium is intact. Mild fluid is seen in the left maxillary sinus. IMPRESSION: No evidence of acute intracranial abnormality.
--- NOTE | 2025-01-24 12:39 | ER ---
Nurse's Notes [facility] Name: Alize Zapata Age: 24 yrs Sex: Female : 2000 Arrival Date: 01/24/2025 Time: 10:54 Bed 19 Private MD: Diagnosis: Headache Presentation: 01/24 11:01 Chief complaint: Patient states: headache since Tuesday that has not improved. Pt also aa5 reports vomiting that began on Tuesday. Coronavirus screen: headache. Ebola Screen: Patient denies travel to an Ebola-affected area in the 21 days before illness onset. Initial Sepsis Screen: Does the patient meet any 2 criteria? No. Patient's initial sepsis screen is negative. Does the patient have a suspected source of infection? No. Patient's initial sepsis screen is negative. Risk Assessment: Do you want to hurt yourself or someone else? Patient reports no desire to harm self or others. Onset of symptoms was January 2025. 11:01 Acuity: RAJIV 3 aa5 11:01 Method Of Arrival: Ambulatory aa5 Historical: - Allergies: 11: Iodine; aa5 11:01 Latex; aa5 - PMHx: 11: None; aa5 - PSHx: 11:01 Cholecystectomy; aa5 - Immunization history:: Adult Immunizations unknown. - Infectious Disease History:: Denies. - Social history:: Smoking status: Patient denies any tobacco usage or history of. Screenin:03 [facility] ED Fall Risk Assessment (Adult) History of falling in the last 3 months, db including since admission No falls in past 3 months (0 pts) Confusion or Disorientation No (0 pts) Intoxicated or Sedated No (0 pts) Impaired Gait No (0 pts) Mobility Assist Device Used No (0 pt) Altered Elimination No (0 pt) Score/Fall Risk Level 0 - 2 = Low Risk Oriented to surroundings, Maintained a safe environment. Abuse screen: Denies threats or abuse. Denies injuries from another. Nutritional screening: No deficits noted. Tuberculosis screening: No symptoms or risk factors identified. Assessment: 11:22 Reassessment: Patient appears in no apparent distress at this time. Patient and/or db family updated on plan of care and expected duration. Pain level reassessed. Patient is alert, oriented x 3, equal unlabored respirations, skin warm/dry/pink. General: Appears in no apparent distress. comfortable, Behavior is calm, cooperative. Pain: Complains of pain in head. Neuro: Level of Consciousness is awake, alert, obeys commands, Oriented to person, place, time, situation. 12:30 Reassessment: Patient is alert, oriented x 3, equal unlabored respirations, skin rg5 warm/dry/pink. Patient states feeling better. Patient states symptoms have improved. Vital Signs: 11:00 BP 117 / 82; Pulse 86; Resp 18; Pulse Ox 99% ; db 11:01 BP 117 / 82; Pulse 86; Resp 16 S; Temp 97.6(TE); Pulse Ox 99% on R/A; Weight 117.93 kg aa5 (R); Height 5 ft. 7 in. (R); 12:00 BP 103 / 62; Pulse 86; Resp 16; Pulse Ox 100% ; db 11:01 Body Mass Index 40.72 (117.93 kg, 170.18 cm) aa5 ED Course: 10:57 Patient arrived in ED. al6 11:01 Mo Gomez NP is PHCP. pm1 11:01 Kamilah Lockwood MD is Attending Physician. pm1 11:01 Arm band placed on. aa5 11:03 Triage completed. aa5 11:11 Liat Perry, RN is Primary Nurse. db 11:20 Inserted saline lock: 20 gauge in right antecubital area, using aseptic technique. db Blood collected. Flushed with 10 mL NS. 11:26 CT Head Brain wo Cont In Process Unspecified. EDMS 12:03 Patient has correct armband on for positive identification. Bed in low position. Call db light in reach. Side rails up X 1. Pulse ox on. NIBP on. Warm blanket given. Pillow given. 12:49 IV discontinued, bleeding controlled, No redness/swelling at site. Pressure dressing rg5 applied. Administered Medications: 11:30 Drug: diphenhydrAMINE IVP 12.5 mg IVP once Route: IVP; Site: right antecubital; db 12:45 Follow up: Response: No adverse reaction; Pain is decreased rg5 11:30 Drug: Ketorolac IVP 15 mg IVP once Route: IVP; Site: right antecubital; db 12:45 Follow up: Response: No adverse reaction; Pain is decreased rg5 11:30 Drug: metoCLOPramide IVP 10 mg IVP once; over 1 to 2 minutes Route: IVP; Site: right db antecubital; 12:45 Follow up: Response: No adverse reaction; Pain is decreased rg5 11:30 Drug: NS 0.9% IV 1000 ml IV at 1000 ml once; to be given as a bolus over 60 minutes db Route: IV; Rate: 1000 ml; Site: right antecubital; 12:45 Follow up: IV Status: Completed infusion; IV Intake: 1000ml rg5 Intake: 12:45 IV: 1000ml; Total: 1000ml. rg5 Outcome: 12:38 Discharge ordered by . pm1 12:49 Discharged to home ambulatory, rg5 12:49 Condition: stable 12:49 Discharge instructions given to patient, 12:49 Patient left the ED. rg5 Signatures: Dispatcher [employer] EDEla Morrissey RN RN aa5 Mo Gomez NP CARDIAC TECHNICIAN pm1 Liat Perry RN RN db Gallardo, Rommel, RN RN rg5 Lizzette Anglin al6
--- NOTE | 2025-01-24 12:39 | EDPHYS ---
Physician Documentation [facility] Name: Alize Zapata Age: 24 yrs Sex: Female : 2000 Arrival Date: 01/24/2025 Time: 10:54 Bed 19 Private MD: ED Physician Kamilah Lockwood HPI: 01/24 11:17 This 24 yrs old Female presents to ER via Ambulatory with complaints of pm1 Headache. 11:17 The patient complains of pain to the left side of the back of head, left occipital pm1 area, right side of the back of head and right occipital area. The patient describes the headache as aching. Onset: The symptoms/episode began/occurred 3 day(s) ago. Associated signs and symptoms: Pertinent negatives: nausea, vomiting, weakness. Severity of symptoms: in the emergency department the pain is unchanged, despite home interventions. Headache History: The patient has had previous headaches and this one is similar to previous episodes. The symptoms are alleviated by nothing. the symptoms are aggravated by palpation. The patient has experienced similar episodes in the past, several times, and the symptoms today are exactly the same, to previous tension headaches. The patient has not recently seen a physician. Patient concerned about headaches due to her spouse dying from a brain tumor when he had similar symptoms. She would like to get imaging to rule out cancer/brain tumor. Historical: - Allergies: 11:01 Iodine; aa5 11:01 Latex; aa5 - PMHx: 11: None; aa5 - PSHx: 11:01 Cholecystectomy; aa5 - Immunization history:: Adult Immunizations unknown. - Infectious Disease History:: Denies. - Social history:: Smoking status: Patient denies any tobacco usage or history of. ROS: 11:17 Constitutional: Negative for fever, chills, and weight loss, Neck: Negative for injury, pm1 pain, and swelling, Cardiovascular: Negative for chest pain, palpitations, and edema, Respiratory: Negative for shortness of breath, cough, wheezing, and pleuritic chest pain, Abdomen/GI: Negative for abdominal pain, nausea, vomiting, diarrhea, and constipation, Back: Negative for injury and pain, MS/Extremity: Negative for injury and deformity, Skin: Negative for injury, rash, and discoloration, 11:17 Neuro: Positive for headache, Negative for dizziness, numbness, tingling, weakness, 11:17 All other systems are negative, Exam: 11:17 Constitutional: This is a well developed, well nourished patient who is awake, alert, pm1 and in no acute distress. 11:17 Head/face: Noted is no obvious of injury or deformity except tenderness, of the left side of the back of head, left occipital area, right side of the back of head and right occipital area, of the palpation and moving scalp reproduces symptoms, 11:17 Eyes: Exam is negative for acute changes, 11:17 Neck: Exam negative for acute changes, 11:17 Cardiovascular: Exam negative for acute changes, 11:17 Respiratory: Exam negative for acute changes, 11:17 Abdomen/GI: Exam negative for acute changes, 11:17 Skin: Exam negative for 11:17 Neuro: Exam negative for acute changes, Orientation: is normal, Mentation: is normal, Cranial nerves: CN II- XII are normal as tested, Motor: is normal, Sensation: is normal, Gait: is steady, at a normal pace, without difficulty, Vital Signs: 11:00 BP 117 / 82; Pulse 86; Resp 18; Pulse Ox 99% ; db 11:01 BP 117 / 82; Pulse 86; Resp 16 S; Temp 97.6(TE); Pulse Ox 99% on R/A; Weight 117.93 kg aa5 (R); Height 5 ft. 7 in. (R); 12:00 BP 103 / 62; Pulse 86; Resp 16; Pulse Ox 100% ; db 11:01 Body Mass Index 40.72 (117.93 kg, 170.18 cm) aa5 MDM: 11:01 Medical Screening Exam initiated pm1 11:40 Counseling: I had a detailed discussion with the patient and/or guardian regarding pm1 radiology results, informed patient - negative findings for CT brain. 12:22 Data reviewed: vital signs. pm1 12:37 Counseling: I had a detailed discussion with the patient and/or guardian regarding the pm1 historical points, exam findings, and any diagnostic results supporting the discharge/admit diagnosis, lab results, the need for outpatient follow up, to return to the emergency department if symptoms worsen or persist or if there are any questions or concerns that arise at home. 01/24 11:17 Order name: Test, Serum; Complete Time: 11:57 pm1 01/24 11:17 Order name: CT Head Brain wo Cont; Complete Time: 11:39 pm1 01/24 11:17 Order name: IV Saline Lock; Complete Time: 11:25 pm1 Administered Medications: 11:30 Drug: diphenhydrAMINE IVP 12.5 mg IVP once Route: IVP; Site: right antecubital; db 12:45 Follow up: Response: No adverse reaction; Pain is decreased rg5 11:30 Drug: Ketorolac IVP 15 mg IVP once Route: IVP; Site: right antecubital; db 12:45 Follow up: Response: No adverse reaction; Pain is decreased rg5 11:30 Drug: metoCLOPramide IVP 10 mg IVP once; over 1 to 2 minutes Route: IVP; Site: right db antecubital; 12:45 Follow up: Response: No adverse reaction; Pain is decreased rg5 11:30 Drug: NS 0.9% IV 1000 ml IV at 1000 ml once; to be given as a bolus over 60 minutes db Route: IV; Rate: 1000 ml; Site: right antecubital; 12:45 Follow up: IV Status: Completed infusion; IV Intake: 1000ml rg5 Disposition Summary: 01/24/25 12:38 Discharge Ordered Notes: Location: Home pm1 Problem: new pm1 Symptoms: have improved pm1 Condition: Stable pm1 Diagnosis - Headache pm1 Followup: pm1 - With: Emergency Department - When: As needed - Reason: Worsening of condition Followup: pm1 - With: Private Physician - When: 2 - 3 days - Reason: Recheck today's complaints, Continuance of care, Re-evaluation by your physician Discharge Instructions: - Discharge Summary Sheet pm1 - Tension Headache, Adult pm1 Forms: - Medication Reconciliation Form pm1 - Antibiotic Education pm1 - Prescription Opioid Use pm1 - Patient Portal Instructions pm1 - Leadership Thank You Letter pm1 - Work release form bc6 Signatures: Dispatcher [employer] EDEla Morrissey RN RN aa5 Mo Gomez, PIE MAKER MACHINE PIE MAKER MACHINE pm1 Liat Perry RN RN db Inocente Chaudhry RN rg5 Corrections: (The following items were deleted from the chart) 11:18 11:17 Head Brain Wo Cont+CT.RAD.BRZ ordered. EDAZ EDMS 11:18 11:18 TEST, SERUM+SC.LAB.BRZ ordered. EDMS EDMS
[2025-01-24 13:29] VITALS: TEMP 97.6
[2025-01-24 13:30] VITALS: BP 103/62; O2SAT 100
== END 2025-01-24 12:49 | disposition home or self-care (01) ==
LOC: ER 10:54
DX: R51.9 Headache, unspecified (principal)
CPT/HCPCS: 36415; 70450; 84703; 96361; 96374; 96375; 99284; J1200; J2765; J7030